=== PATIENT | female | born 1940 | race Caucasian/White ===

== ENCOUNTER → 2018-03-06 10:26 | Outpatient (CLI) | payer MEDICARE, OTHER, SELFPAY ==
[2018-03-06 13:31] LABS: ALB/GLOB Ratio 1.2 RATIO (0.9-2.4); AST(SGOT) 28 U/L (15-37); Alanine Aminotransfer ALT/SGPT 29 U/L (13-56); Albumin, Serum 3.7 g/dL (3.2-5.0); Alkaline Phosphatase 111 U/L (45-117); Anion Gap 8 (5-15); BUN 11 mg/dL (7-18); BUN/Creat Ratio 18.1 RATIO (10-20); Calcium,Total 8.5 mg/dL (8.5-10.1); Chloride 98 mmol/L (98-107); Creatinine, Serum 0.61 mg/dL (0.55-1.02); EST Glomerular Filtration Rate 101 mL/min (>60); Est Glom Filt Rate - Afr Amer 122 mL/min (>60); Globulin 3.2 g/dL (2.2-4.2); Glucose 83 mg/dL (74-106); Potassium 3.5 mmol/L (3.5-5.1); Protein, Total 6.9 g/dL (6.4-8.2); Sodium Level 133 mmol/L (136-145); T4 Free Direct 1.36 ng/dL (0.76-1.46); Thyroid Stim Hormone (TSH) 1.67 uIU/mL (0.358-3.74)
[2018-03-06 17:01] LABS: Vitamin D,25 Hydroxy 72.5 ng/mL (29.95-100.01)
== END ==
PROVIDERS: Family Provider Family Medicine; PCP Family Medicine; Visit Provider Family Medicine
DX: E03.9 Hypothyroidism, unspecified (principal); K90.0 Celiac disease; M81.0 Age-related osteoporosis without current pathological fracture
CPT/HCPCS: 36415; 80053; 82306; 84439; 84443

== ENCOUNTER → 2018-03-17 09:03 | Outpatient (CLI) | payer MEDICARE, OTHER, SELFPAY ==
--- NOTE | 2018-03-17 09:05 | BD_ITS ---
STUDY: DUAL ENERGY X-RAY ABSORPTIOMETRY / DXA REASON FOR EXAM: Female, 78 years old. The patient is postmenopausal. Loss of height of 3 images. TECHNIQUE: Bone Mineral Density (BMD) measurements of lumbar spine and bilateral hips were obtained. COMPARISON: Comparison is made with prior study dated March 16, 2015. FINDINGS: Lumbar Spine (L1-L4): g/cm2 (0.847) / T-score (-2.8) / Z-score (-0.9) Findings are suggestive of osteoporosis with a high fracture risk. Increased thoracic kyphosis. Left Femur Total: g/cm2 (0.745) / T-score (-2.1) / Z-score (-0.1) Left Femoral Neck: g/cm2 (0.699) / T-score (-2.4) / Z-score (-0.3) Right Femur Total: g/cm2 (0.752) / T-score (-2.0) / Z-score (0.0) Right Femoral Neck: g/cm2 (0.741) / T-score (-2.1) / Z-score (0.0) The T-Scores on the most recent prior examination were: Lumbar Spine (L1-L4): There has been improvement of bone density since the previous examination. Left Femur Total: which represents a worsening of 4.1%. Right Femur Total: which represents a worsening of 2.2%. BD/Dexa Bone Density Study IMPRESSION: The patient is considered osteoporotic as outlined below according to World Edu Organization (WHO) criteria with a high fracture risk. There has been worsening of bone density since the previous examination. Reference Information: The T-score is the number of standard deviations above or below the standard which is normal for young adults at their peak bone mineral density. The World Health Organization (WHO) interprets the T-scores as follows: Above -1 Normal bone density Between -1 and -2.5 Osteopenia Equal to / or below -2.5 Osteoporosis As a practical clinical guideline, osteopenia may be graded as follows: Mild -1 through -1.5 Moderate -1.6 through -2.0 Severe -2.1 through -2.4 The Z-score is the number of standard deviations above or below age-matched controls. A Z-score of less than -1.5 would be considered abnormal. References: 1. NIH Osteoporosis and Related Bone Diseases http://www.osteo.org 2. International Society for Clinical Densitometry http://www.iscd.org 3. National Osteoporosis Foundation http://www.nof.org Electronically Signed: Wolfgang Brooks MD at 15:46 EDT Tel [phone], Service support ,
== END ==
PROVIDERS: Family Provider Family Medicine; PCP Family Medicine; Visit Provider Family Medicine
DX: M81.0 Age-related osteoporosis without current pathological fracture (principal)
CPT/HCPCS: 77080

== ENCOUNTER → 2018-04-28 07:55 | Outpatient (CLI) | payer MEDICARE, OTHER, SELFPAY ==
[2018-04-28 10:02] LABS: AST(SGOT) 29 U/L (15-37); Alanine Aminotransfer ALT/SGPT 35 U/L (13-56); Albumin, Serum 3.8 g/dL (3.2-5.0); Alkaline Phosphatase 114 U/L (45-117); Bilirubin, Direct 0.11 mg/dL (0.00-0.30); Cholesterol 152 mg/dL (200); Globulin 3.5 g/dL (2.2-4.2); High Density Lipoprotein 60 mg/dL; Protein, Total 7.3 g/dL (6.4-8.2); Triglycerides 88 mg/dL; Very Low Density Lipoprotein 18 mg/dL (5-40)
== END ==
PROVIDERS: Family Provider Family Medicine; PCP Family Medicine; Visit Provider Internal Medicine Cardiovascular Disease
DX: E78.5 Hyperlipidemia, unspecified (principal); Z79.899 Other long term (current) drug therapy
CPT/HCPCS: 36415; 80061; 80076

== ENCOUNTER → 2018-05-11 10:20 | Outpatient (CLI) | payer MEDICARE, OTHER, SELFPAY ==
--- NOTE | 2018-05-11 10:20 | DT_ITS ---
This patient was seen during an EMR downtime May 04, 2018 - May 11, 2018. This patient may have a combination of paper and electronic documentation or all paper documentation. All documentation is viewable within the e-chart portion of [employer] for each patient visit.
--- NOTE | 2018-05-11 10:25 | RAD_ITS ---
STUDY: X-RAY CHEST REASON FOR EXAM: Female, 78 years old. Cough. TECHNIQUE: Frontal and lateral views of the chest. COMPARISON: June 06, 2015 FINDINGS: The lungs are mildly hyperexpanded and unchanged. There is no demonstrated pleural abnormality. Normal size heart. Normal mediastinum and nighat. Normal visualized pulmonary arteries. Normal visualized aortic arch and descending thoracic aorta. There is increased kyphosis of the thoracic spine with osteopenia unchanged. Normal visualized ribs, clavicles, and shoulders. Aspect of the noted are stable postsurgical changes in the abdomen. RAD/Chest PA and Lateral IMPRESSION: Stable appearance of the chest with no new or acute pathology. Specifically, no focal consolidations are present. Electronically Signed: Jax Smith MD at 12:42 EDT , Service support ,
[2018-05-11 12:53] LABS: Anion Gap 8 (5-15); BUN 7 mg/dL (7-18); BUN/Creat Ratio 10.9 RATIO (10-20); Calcium,Total 9.5 mg/dL (8.5-10.1); Chloride 98 mmol/L (98-107); Creatinine, Serum 0.64 mg/dL (0.55-1.02); EST Glomerular Filtration Rate 95 mL/min (>60); Est Glom Filt Rate - Afr Amer 115 mL/min (>60); Glucose 111 mg/dL (74-106); Potassium 3.8 mmol/L (3.5-5.1); Sodium Level 136 mmol/L (136-145); Thyroid Stim Hormone (TSH) 1.74 uIU/mL (0.358-3.74)
== END ==
PROVIDERS: Family Provider Family Medicine; PCP Family Medicine; Visit Provider Family Medicine
DX: R05 Cough (principal); E03.9 Hypothyroidism, unspecified; I10 Essential (primary) hypertension
CPT/HCPCS: 36415; 71046; 80048; 84443

== ENCOUNTER → 2018-05-29 11:04 | Outpatient (CLI) | payer MEDICARE, OTHER, SELFPAY ==
--- NOTE | 2018-05-29 11:08 | RAD_ITS ---
STUDY: X-RAY - LUMBAR SPINE REASON FOR EXAM: Female, 78 years old. Back pain for days constipation TECHNIQUE: 4 view(s) of the lumbar spine were obtained. COMPARISON: Y 12 2012 lumbar spine x-ray FINDINGS: Normal lumbar lordosis. There is mild levoscoliosis of the lumbar spine. There is a normal alignment of the vertebrae. There is multilevel endplate spondylosis of the lumbar vertebrae. There is multi-level degenerative disc disease with multi-level disc space narrowing. There is greater neural foraminal narrowing suggested at L4-L5. There is a stool-filled appearance of the colon in a gassy appearance of the small bowel. This postoperative change in the right upper quadrant status post cholecystectomy. RAD/L/S Spine Min 4 Views IMPRESSION: Degenerative change thoracolumbar spine. Probable greater neural foraminal narrowing in the lower lumbar spine. Electronically Signed: Ashley Moreland MD at 15:13 EDT Tel , Service support ,
== END ==
PROVIDERS: Family Provider Family Medicine; PCP Family Medicine; Visit Provider Family Medicine
DX: M54.9 Dorsalgia, unspecified (principal)
CPT/HCPCS: 72110

== ENCOUNTER → 2018-07-10 10:31 | Outpatient (CLI) | payer MEDICARE, OTHER, SELFPAY ==
[2018-07-10 12:49] LABS: Anion Gap 10 (5-15); BUN 8 mg/dL (7-18); BUN/Creat Ratio 12.7 RATIO (10-20); Calcium,Total 9.5 mg/dL (8.5-10.1); Chloride 103 mmol/L (98-107); Creatinine, Serum 0.63 mg/dL (0.55-1.02); EST Glomerular Filtration Rate 97 mL/min (>60); Est Glom Filt Rate - Afr Amer 117 mL/min (>60); Glucose 99 mg/dL (74-106); Potassium 3.8 mmol/L (3.5-5.1); Sodium Level 141 mmol/L (136-145); Thyroid Stim Hormone (TSH) 1.59 uIU/mL (0.358-3.74)
== END ==
PROVIDERS: Family Provider Family Medicine; PCP Family Medicine; Visit Provider Family Medicine
DX: E03.9 Hypothyroidism, unspecified (principal)
CPT/HCPCS: 36415; 80048; 84443

== ENCOUNTER → 2018-11-11 10:33 | Outpatient (CLI) | payer MEDICARE, OTHER, SELFPAY ==
[2018-11-11 12:29] LABS: Anion Gap 8 (5-15); BUN 9 mg/dL (7-18); BUN/Creat Ratio 14.5 RATIO (10-20); Calcium,Total 9.3 mg/dL (8.5-10.1); Chloride 99 mmol/L (98-107); Creatinine, Serum 0.62 mg/dL (0.55-1.02); EST Glomerular Filtration Rate 98 mL/min (>60); Est Glom Filt Rate - Afr Amer 119 mL/min (>60); Free T3 2.8 pg/mL (2.18-3.98); Glucose 102 mg/dL (74-106); Sodium Level 137 mmol/L (136-145); T4 Total, Thyroxin 12.6 ug/dL (4.8-13.9); Thyroid Stim Hormone (TSH) 2.09 uIU/mL (0.358-3.74)
--- OUTSIDE RECORDS SUMMARY | 2018-12-28 12:39 | XMS RPT_ITS ---
:1940 Author Organization OHIP Support Name Relationship Address Phone RABIAKORY HARMONNIE Unavailable . + [place] [address] R Unavailable Unavailable Unavailable LEXI, EITAN Unavailable . + [place] [address] RABIA, FAB Unavailable . + [place] [address] R Unavailable Unavailable Unavailable LEXI EITAN Unavailable . + [place] [address] RABIA, FAB Unavailable . + [place] [address] R Unavailable Unavailable Unavailable LEXI EITAN Unavailable . + [place] [address] RABIA, FAB Unavailable . + [place] [address] R Unavailable Unavailable Unavailable LEXI EITAN Unavailable . + [place] [address] RABIA, FAB Unavailable . + [place] [address] R Unavailable Unavailable Unavailable LEXI EITAN Unavailable . + [place] [address] RABIA, FAB Unavailable . + [place] [address] R Unavailable Unavailable Unavailable LEXI EITAN Unavailable . + [place] [address] RABIA, FAB Unavailable . + [place] [address] R Unavailable Unavailable Unavailable LEXI EITAN Unavailable . + [place] [address] RABIA, FAB Unavailable Unavailable + [place] [address] R Unavailable Unavailable Unavailable SWIRES, EITAN Unavailable Unavailable + [place] [address] RABIA, FAB Unavailable . + [place] [address] R Unavailable Unavailable Unavailable SWIRES, EITAN Unavailable . + [place] [address] RABIA, FAB Unavailable . + [place] [address] R Unavailable Unavailable Unavailable SWIRES, EITAN Unavailable . + [place] [address] RABIA, FAB Unavailable . + [place] [address] R Unavailable Unavailable Unavailable SWIRES, EITAN Unavailable . + [place] [address] RABIA, FAB Unavailable . + [place] [address] R Unavailable Unavailable Unavailable SWIRES, EITAN Unavailable . + [place] [address] R Unavailable Unavailable Unavailable ROOT, SEKOU Unavailable [address] [phone] [address] [place] [address] R Unavailable Unavailable Unavailable ROOT, SEKOU Unavailable [address] [phone] [address] [place] [address] R Unavailable Unavailable Unavailable ROOT, SEKOU Unavailable [address] [phone] [address] [place] [address] R Unavailable Unavailable Unavailable ROOT, SEKOU Unavailable [address] + [place] [address] R Unavailable Unavailable Unavailable ROOT, SEKOU Unavailable [address] + [place] [address] Care Team Providers Name Role Phone Amos King Attending Unavailable Amos King Primary Care Unavailable Mily Julio Attending Unavailable Jona Padron Attending Unavailable Parminder Hair Referring Unavailable Parminder Hair Attending Unavailable Laxmi, Parminder Primary Care Unavailable Parminder Hair Attending Unavailable Laxmi, Parminder Referring Unavailable Laxmi, Parminder Primary Care Unavailable Chacorta Higginbotham Attending Unavailable Parminder Hair Referring Unavailable Jona Padron Attending Unavailable Parminder Hair Referring Unavailable Laxmi, Parminder Primary Care Unavailable Chacorta Higginbotham Attending Unavailable Laxmi, Parminder Referring Unavailable Laxmi, Parminder Primary Care Unavailable Jona Padron Attending Unavailable Laxmi, Parminder Referring Unavailable Laxmi, Parminder Primary Care Unavailable Jona Padron Attending Unavailable Laxmi, Parminder Referring Unavailable Laxmi, Parminder Primary Care Unavailable Jona Padron Attending Unavailable Jona Pardon Referring Unavailable Laxmi, Parminder Primary Care Unavailable King, Amos Attending Unavailable King, Amos Referring Unavailable King, Amos Primary Care Unavailable Jona Padron Attending Unavailable Laxmi, Parminder Referring Unavailable King, Amos Primary Care Unavailable King, Amos Attending Unavailable King, Amos Referring Unavailable King, Amos Primary Care Unavailable King, Amos Attending Unavailable King, Amos Referring Unavailable King, Amos Primary Care Unavailable Leslie Chapman Attending Unavailable King, Amos Referring Unavailable King, Amos Primary Care Unavailable Funmilayo [place] Attending Unavailable Laxmi, Parminder Referring Unavailable King, Amos Primary Care Unavailable PROBLEMS PROBLEMS DATE TYPE CONDITION / CODE ATTENDING STATUS SOURCE 07/31/2018 Unknown I25.10 - [place], Active [place] Atherosclerotic heart Funmilayo [facility] disease [facility] coronary artery Repository without angina pectoris / I25.10(ICD-10) 07/31/2018 Unknown I10 - Essential Sherman, Active [place] (primary) Funmilayo [facility] hypertension / Hospital I10(ICD-10) Repository 07/31/2018 Unknown R00.0 - Tachycardia, Lane Active [place] unspecified / [facility] R00.0(ICD-10) Hospital Repository 05/29/2018 Unknown M54.9 - Dorsalgia, KingAmos thomason Active [place] unspecified / Community M54.9(ICD-10) Hospital Repository 05/28/2018 Unknown R05 - Cough / KingAmos Active [place] R05(ICD-10) Community Hospital Repository 03/26/2018 Unknown E78.5 - Jona Padron Active [place] Hyperlipidemia, Community unspecified / Hospital E78.5(ICD-10) Repository 03/19/2018 Unknown 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 / Community J32.0(ICD-10) Hospital Repository 03/17/2018 Unknown M81.0 - Age-related Parminder Hair Active [place] osteoporosis without Community current pathological Hospital fracture / Repository M81.0(ICD-10) 03/17/2018 Unknown E03.9 - Laxmi Parminder Active [place] Hypothyroidism, Community unspecified / Hospital E03.9(ICD-10) Repository PROCEDURES PROCEDURES No Procedure Records FoundRESULTS RESULTS BASIC METABOLIC Collected: 11/11/2018 Status: F Source: [place] PROFILE (BMP) 10:39 AM [facility] [place] CODE TESTS RESULT OUT OF RANGE REFERENCE UNITS LAB L501.0100 74-106 mg/dL Normal GLU 102 Result Comment: Fasting Glucose result from 100 to 125 mg/dL suggests IMPAIRED HOMEOSTASIS per A.D.A. criteria. Please note revised GLUCOSE reference range effective 2018. LAB L501.1000 7-18 mg/dL Normal BUN 9 LAB L501.1100 0.55-1.02 mg/dL Normal CREAT,SERUM 0.62 Result Comment: The validity of the calculated GFR AND GFRAA in patients over 70 years has not been determined. Clinical correlation is essential. LAB L501.1110 >60 mL/min Normal EST GFR 98 Result Comment: Non- GFR Calc LAB L501.1115 >60 mL/min Normal EST GFR - AA 119 Result Comment: GFR Calc LAB L501.1300 10-20 RATIO Normal BUN/CRE 14.5 LAB L501.2200 8.5-10.1 mg/dL CA Normal 9.3 LAB L501.5300 136-145 mmol/L NA Normal 137 LAB L501.5600 3.5-5.1 mmol/L K Normal 4.0 LAB L501.5900 98-107 mmol/L CL Normal 99 LAB L501.6100 21.0-32.0 mmol/L Normal CO2 30.0 LAB L501.6200 5-15 Normal GAP 8 Performed By: #### L500.2500, L501.27009, L501.9310, L501.9520 #### [facility] [address] [place], [address] FREE T3 Collected: 11/11/2018 Status: F Source: [place] 10:39 AM [facility] [place] TYPE CODE TESTS RESULT OUT OF RANGE REFERENCE UNITS LAB L501.39129 2.18-3.98 pg/mL Normal FREE T3 2.8 Performed By: #### L500.2500, L501.45784, L501.9310, L501.9520 #### [facility] [address] [place], [address] T4 TOTAL, THYROXIN Collected: 11/11/2018 Status: F Source: [place] 10:39 AM [facility] [place] TYPE CODE TESTS RESULT OUT OF RANGE REFERENCE UNITS LAB L501.9310 4.8-13.9 ug/dL T4 Normal THYROXIN 12.6 Performed By: #### L500.2500, L501.58644, L501.9310, L501.9520 #### [facility] [address] [place], [address] THYROID STIM HORMONE Collected: 11/11/2018 Status: F Source: [place] (TSH) 10:39 AM [facility] [place] TYPE CODE TESTS RESULT OUT OF RANGE REFERENCE UNITS LAB L501.9520 0.358-3.74 uIU/mL Normal TSH 2.09 Performed By: #### L500.2500, L501.06424, L501.9310, L501.9520 #### [facility] [address] [place], [address] CARDIOLOGY VISIT Observed: 08/05/2018 Status: F Source: [place] REPORT 2:20 PM [facility] [place] [facility] [facility] [address] [place] [address] OFFICE VISIT Date of Service: 07/31/18 MR#: [id number] Acct: [id number] Name: JOLIE LEMOS Rep #: [id number] : 1940 Provider: Funmilayo [place] Age/Sex: 78/F Location: [facility] [place] Status: Signed HPI HPI Details: JOLIE LEMOS, is a 78 F who presents to the office today for a cardiovascular follow-up. Patient reestablished with us last year for concerns over her atypical chest discomfort. We did obtain a stress test which was negative for ischemia. She does have a history of hypertension, hypothyroidism and GERD. Patient does note occasionally her heart rate is elevated to 100-115. She is not symptomatic with this. She only notes this by checking her blood pressure. In the past she has averaged heart rates in the high 80s-90s. Overall she is doing well. She feels her exercise tolerance is stable for her age. She does not have any chest discomfort or heaviness. She does not have any lightheadedness or dizziness. She does not have any worsening shortness of breath. She does not have any lower extremity edema or claudication symptoms. Intake Vital Signs07/31/18 Height 5 ft 07/31/18 Weight: 116 lb 07/31/18 Body Mass Index (BMI) 22.6 07/31/18 Blood Pressure 140/60 Intake Visit Reasons: 4 M Belling Machine Operator Required: No Allergies omeprazole Allergy (Intermediate, Verified 07/31/18 10:56) Itching Penicillins Allergy (Verified 07/31/18 10:56) Unknown lisinopril Adverse Reaction (Intermediate, Verified 07/31/18 10:56) Cough Medications calcium carbonate 500 mg (1,250 mg)-vitamin D3 200 unit tablet 2 tab PO QDAY tab 01/01/18 [History Confirmed 07/31/18] cholecalciferol (vitamin D3) 5,000 unit tablet 5,000 unit PO QDAY 01/01/18 [History Confirmed 07/31/18] levothyroxine 50 mcg tablet 50 mcg PO QDAY 90 Days #90 tab 01/01/18 [History Confirmed 07/31/18] omega-3 fatty acids 1,000 mg capsule 1,000 mg PO QDAY 03/19/18 [History Confirmed 07/31/18] aspirin 81 mg tablet,delayed release 81 mg PO QDAY 03/20/18 [History Confirmed 07/31/18] vitamin B complex tablet 1 tab PO QDAY 03/20/18 [History Confirmed 07/31/18] vitamins A,C,B-mevy-llfbua 14,320 unit-226 mg-200 unit capsule 1 cap PO .q day cap 03/20/18 [History Confirmed 07/31/18] acetaminophen 325 mg tablet 325 mg PO Q6H PRN 07/29/18 [History Confirmed 07/31/18] ketotifen 0.025 % (0.035 %) eye drops 1 drp OPHTHALMIC BID 07/29/18 [History Confirmed 07/31/18] polyethylene glycol 3350 17 gram/dose oral powder PO 07/29/18 [History Confirmed 07/31/18] amlodipine 2.5 mg tablet 2.5 mg PO QDAY #90 tab 07/31/18 [Rx Confirmed 07/31/18] losartan 25 mg tablet 25 mg PO DAILY 07/31/18 [History Confirmed 07/31/18] PFSH Medical History GERD (gastroesophageal reflux disease) (Chronic) Atherosclerotic heart disease of [place] coronary artery without angina pectoris (Chronic) Arthritis (Acute) Thyroid disease (Acute) HLD (hyperlipidemia) (Chronic) HTN (hypertension) (Chronic) Chest pain, unspecified (Chronic) Surgical History History of cataract surgery (Chronic) History of left heart catheterization (Chronic) History of Alexei fundoplication (Resolved) Tubal ligation status (Resolved) Family History Mother CAD (coronary artery disease) Father CAD (coronary artery disease) Brother Heart disease Myocardial infarction Other Cancer Dementia Social History Smoking Status: Never smoker alcohol intake: never substance use type: does not use caffeine: Yes what type of physical activity do you participate in: other details: Mobio video frequency: daily seatbelt use: always do you feel safe at home: Yes additional social history: ROS Const Const: Positive for other (Multiple other health issues such as back pain, bladder prolapse); negative for fatigue, weakness, body ache, fever(s), headache(s), chills, frequent falls, night sweats, daytime sleepiness, difficulty sleeping, excessive sweating, weight gain, weight loss, increased appetite, poor appetite or anorexia ENT ENT: Negative for headache(s) or balance problems Cardio Chest Pain: No Palpitations: No (HR today is 100 and regular) Edema: Bilateral (from varicose veins, wears support stockings) Muscle aches with walking: None Resp Respiratory: Negative for SOB with activity, SOB at rest, SOB orthopnea\SOB lying down, Cough, Coughing up blood/hemoptysis, chest congestion, pain on inspiration, snoring, stridor, wheezing, crackles, paroxysmal nocturnal dyspnea or other Musc Musc: Positive for joint pain (back pain); negative for muscle aches/ myalgia, muscle weakness or balance problems Neuro Neuro: Negative for weakness, headache(s) or frequent falls Endo Endo: Negative for fatigue or excessive sweating Cardiology Exam Const Appearance: cooperative, healthy appearing and no acute distress Nutritional Appearance: well nourished Orientation: alert, oriented x3 and oriented to person Head Head: normal to inspection, atraumatic and normocephalic Nose: external nose normal Face and Sinus: face symmetric Mouth: oral mucosae normal Eyes General: appearance normal, both eyes and all related structures Eyelids: eyelids normal Conjunctivae: conjunctivae normal Pupils: PERRL and normal by confrontation EOM: EOM intact bilaterally Neck Neck: normal visual inspection and full ROM Carotids: normal carotid upstroke Chest Chest inspection: normal inspection of the chest Auscultation: Bilateral: Clear to Auscultation Cardio Palpation: normal PMI Rate: regular rate Rhythm: regular rhythm Heart sounds: S1 normal and S2 normal GI GI: normal to inspection, no hepatosplenomegaly and bowel sounds present Neuro General: alert, oriented x3, awake, CN's II-XI intact bilaterally and moves all extremities Skin Skin: no rashes or lesions noted Extremities Pulses: Normal: Right Femoral Pulse, Left Femoral Pulse, Right Dorsalis Pedis Pulse, Left Dorsalis Pedis Pulse, Right Posterior Tibial Pulse, Left Posterior Tibial Pulse, Right Radial Pulse, Left Radial Pulse Lower Extremity Edema: None: Bilateral Psych Psychological: normal affect Supplemental Info Stress echocardiogram in 2017 demonstrates an ejection fraction of 65%. Normal adequate treadmill echocardiogram. Negative for ischemia by EKG and echocardiographic criteria. No anginal symptoms noted. No arrhythmias noted. Average exercise capacity for age. Echocardiogram in 2017 demonstrates an ejection fraction of 65%. Stage I diastolic dysfunction. Trivial mitral tricuspid insufficiency. RVSP 27 mmHg. Assessment AND Plan 1. Atherosclerosis of [place] coronary artery of [place] heart without angina pectoris I25.10 Mild per cath 08/15/1998 @ [facility] per Dr. Miranda: 10-25% ostial first diagonal stenosis; 10-25% ostial RCA artery stenosis Plan Stable, from a cardiac standpoint patient does not have any symptoms of angina. We recommend that they continue with current aggressive medical management and risk factor modification. Orders Orders: 2. Essential hypertension I10 Plan Blood pressure is adequately controlled. Will not make any adjustments at this time. Orders Orders: 3. Pure hypercholesterolemia E78.00; E78.0 Plan Recent lipid profile demonstrates total cholesterol of 152, HDL 60, LDL 74. Will not make any further adjustments. 4. Tachycardia R00.0 Plan EKG today demonstrates normal sinus rhythm. Have discussed obtaining a Holter monitor to evaluate her tachycardia however reviewing records is noted that her average heart rate is between upper 80s and low 90s. For now we will continue to monitor. She is not symptomatic with this. Orders Orders: Plan Detail Other Medications Refilled: Additional Comments Thank you for allowing us to participate in the patients plan of care, if you have any questions please do not hesitate to call. This note was generated using a voice recognition system and there may be incorrect words, spelling or punctuation that were not noted when reviewing the office note prior to saving. Follow Up 6 Months (DJN) Coding Level of Care Code Off vis,est,level 3 Diagnoses Atherosclerosis of [place] coronary artery of [place] heart without angina pectoris I25.10 [place] vs. transplanted heart: [place] heart Essential hypertension I10 Hypertension type: essential hypertension Pure hypercholesterolemia E78.00; E78.0 Hyperlipidemia type: pure hypercholesterolemia Tachycardia R00.0 Coding Level of Care Code Off vis,est,level 3 Diagnoses Atherosclerosis of [place] coronary artery of [place] heart without angina pectoris I25.10 [place] vs. transplanted heart: [place] heart Essential hypertension I10 Hypertension type: essential hypertension Pure hypercholesterolemia E78.00; E78.0 Hyperlipidemia type: pure hypercholesterolemia Tachycardia R00.0 08/05/18 1420 <Electronically signed by Funmilayo MUSA> Date Funmilayo MUSA Cosigner Signature: Date (if applicable) CC: Amos King MD 12 LEAD EKG PERFORMED Observed: 07/31/2018 Status: F Source: [place] BY [place]OSH 11:25 AM [facility] [address] [place] [address] 12 Lead EKG performed by JOSH 07/31/18 1122 MR#: [id number] Acct: [id number] Name: JOLIE LEMOS Rep #: [id number] : 1940 78 From: Funmilayo MUSA Attending Dr: Funmilayo [place] Status: DEP AMB Ordering Dr: Funmilayo [place] Date: 07/31/18 Location: [facility] Sex: F C [place] [facility]12 Lead EKG performed by [facility] ECG Report Interpretation Sinus Rhythm -possible old anterior infarct. ABNORMAL Electronically signed on 11/13/2018 at 15:21 by Jona Padron Software Version [id number] 11/13/18 1526 Date Funmilayo MUSA CC: Amos King MD Date Dictated: 07/31/18 112 Date Transcribed: 07/31/18 112 Field Staff: DONAVAN Signed SIDEROGRAPHIST OFFICE VISIT Observed: 07/29/2018 Status: F Source: [place] REPORT 3:03 PM [facility] [address] [place] [address] OFFICE VISIT Date of Service: 07/29/18 MR#: [id number] Acct: [id number] Name: JOLIE LEMOS Rep #: [id number] : 1940 Provider: KAREN Chapman Age/Sex: 78/F Location: [facility] [place] Status: Signed Intake Vital Signs07/29/18 Height 5 ft 07/29/18 Weight: 116 lb 8 oz 07/29/18 Body Mass Index (BMI) 22.7 07/29/18 Blood Pressure 140/84 Intake Visit Reasons: POSSIBLE PROLAPSE Belling Machine Operator Required: No Is patient in pain?: No Allergies omeprazole Allergy (Intermediate, Verified 07/29/18 14:06) Itching Penicillins Allergy (Verified 07/29/18 14:06) Unknown lisinopril Adverse Reaction (Intermediate, Verified 07/29/18 14:06) Cough Medications calcium carbonate 500 mg (1,250 mg)-vitamin D3 200 unit tablet 2 tab PO QDAY tab 01/01/18 [History Confirmed 07/29/18] cholecalciferol (vitamin D3) 5,000 unit tablet 5,000 unit PO QDAY 01/01/18 [History Confirmed 07/29/18] levothyroxine 50 mcg tablet 50 mcg PO QDAY 90 Days #90 tab 01/01/18 [History Confirmed 07/29/18] omega-3 fatty acids 1,000 mg capsule 1,000 mg PO QDAY 03/19/18 [History Confirmed 07/29/18] aspirin 81 mg tablet,delayed release 81 mg PO QDAY 03/20/18 [History Confirmed 07/29/18] vitamin B complex tablet 1 tab PO QDAY 03/20/18 [History Confirmed 07/29/18] vitamins A,C,U-xarc-zbatss 14,320 unit-226 mg-200 unit capsule 1 cap PO .q day cap 03/20/18 [History Confirmed 07/29/18] amlodipine 2.5 mg tablet 2.5 mg PO QDAY #30 tab 04/24/18 [Rx Confirmed 07/29/18] losartan 25 mg tablet 25 mg PO QDAY 04/24/18 [History Confirmed 07/29/18] acetaminophen 325 mg tablet 325 mg PO Q6H PRN 07/29/18 [History Confirmed 07/29/18] ketotifen 0.025 % (0.035 %) eye drops 1 drp OPHTHALMIC BID 07/29/18 [History Confirmed 07/29/18] loratadine 10 mg tablet 10 mg PO DAILY 07/29/18 [History Confirmed 07/29/18] multivitamin tablet 1 tab PO DAILY 07/29/18 [History Confirmed 07/29/18] polyethylene glycol 3350 17 gram/dose oral powder PO 07/29/18 [History Confirmed 07/29/18] Is last menstrual period known: No Post menopausal: Yes Patient : No : No PFSH Medical History GERD (gastroesophageal reflux disease) (Chronic) Atherosclerotic heart disease of [place] coronary artery without angina pectoris (Chronic) Arthritis (Acute) Thyroid disease (Acute) HLD (hyperlipidemia) (Chronic) HTN (hypertension) (Chronic) Chest pain, unspecified (Chronic) Surgical History History of cataract surgery (Chronic) History of left heart catheterization (Chronic) History of Alexei fundoplication (Resolved) Tubal ligation status (Resolved) Family History Mother CAD (coronary artery disease) Father CAD (coronary artery disease) Brother Heart disease Myocardial infarction Other Cancer Dementia Social History Smoking Status: Never smoker alcohol intake: never substance use type: does not use caffeine: Yes what type of physical activity do you participate in: other details: Mobio video frequency: daily seatbelt use: always do you feel safe at home: Yes additional social history: HPI POSSIBLE PROLAPSE: Details: JOLIE LEMOS is a 78 year old who presents for evaluation of possible vaginal prolapse. Noted bulge when wiping yesterday. Denies vaginal bleeding. Had some discomfort and urinary urgency yesterday but has resolved. Pregancy History 3 Elective abortions Hx Para 3 Spontaneous abortions Past Pregnancies Del. DateName GA/Weeks Outcome Route Bth WeighInfant GeLabor LgtAnesthesiDel LocatProvider FOB t n h a n Exam External Female Exam: normal external appearance, normal appearance of the urethra Urethra: normal appearance of the urethra Speculum Exam - Vagina: atrophic vaginal mucosa Speculum Exam - Cervix: normal appearance of the cervix Bimanual Exam- Vagina AND Uterus: normal bimanual exam Bimanual Exam- Adnexa, other: normal adnexae, cystocele Pelvic Support: cystocele mild Results BMSUA Office Urine Color Yellow Last Edit by Funmilayo Kasper on 07/29/18 15:02 Office Urine Clarity Clear Last Edit by Funmilayo Kasper on 07/29/18 15:02 Assessment AND Plan Problems 1. Midline cystocele N81.11 2. Urinary urgency R39.15 Plan Discussed use of pessary if cystocele becomes problematic which it has not yet. She just wanted to know what she could feel in vaginal UA dip X 10 negative RTO prn if symptoms occur Orders Orders: Coding Level of Care Code Off vis,new,level 3 Diagnoses Midline cystocele N81.11 Cystocele location: midline Urinary urgency R39.15 07/29/18 1503 <Electronically signed by Leslie BALDWIN> Date Leslie Chapman SURVEILLANCE MANAGER-C Cosigner Signature: Date (if applicable) CC: BASIC METABOLIC Collected: 07/10/2018 Status: F Source: [place] PROFILE (BMP) 10:42 AM [facility] [place] TYPE CODE TESTS RESULT OUT OF RANGE REFERENCE UNITS LAB L501.0100 74-106 mg/dL Normal GLU 99 Result Comment: Please note revised GLUCOSE reference range effective 2018. LAB L501.1000 7-18 mg/dL Normal BUN 8 LAB L501.1100 0.55-1.02 mg/dL Normal CREAT,SERUM 0.63 Result Comment: The validity of the calculated GFR AND GFRAA in patients over 70 years has not been determined. Clinical correlation is essential. LAB L501.1110 >60 mL/min Normal EST GFR 97 Result Comment: Non- GFR Calc LAB L501.1115 >60 mL/min Normal EST GFR - AA 117 Result Comment: GFR Calc LAB L501.1300 10-20 RATIO Normal BUN/CRE 12.7 LAB L501.2200 8.5-10.1 mg/dL CA Normal 9.5 LAB L501.5300 136-145 mmol/L NA Normal 141 LAB L501.5600 3.5-5.1 mmol/L K Normal 3.8 LAB L501.5900 98-107 mmol/L CL Normal 103 LAB L501.6100 21.0-32.0 mmol/L Normal CO2 28.0 LAB L501.6200 5-15 Normal GAP 10 Performed By: #### L500.2500, L501.9520 #### [facility] [address] [place], [address] THYROID STIM HORMONE Collected: 07/10/2018 Status: F Source: [place] (TSH) 10:42 AM [facility] [place] TYPE CODE TESTS RESULT OUT OF RANGE REFERENCE UNITS LAB L501.9520 0.358-3.74 uIU/mL Normal TSH 1.59 Performed By: #### L500.2500, L501.9520 #### [facility] [address] [place], [address] L/S SPINE MIN 4 Observed: 05/29/2018 Status: F Source: [place] [facility] [place] [facility] Imaging Services [address] [place] [address] L/S Spine Min 4 Views MR#: [id number] Acct: [id number] Name: JOLIE LEMOS Rep #: [id number] : 1940 F 78 From: Ashley Moreland MD PCP: Amos King MD Status: REG CLI Study: L/S Spine Min 4 Views Date of Exam: 05/29/18 Exam# [id number] Ordering Dr: Amos King MD STUDY: X-RAY - LUMBAR SPINE REASON FOR EXAM: Female, 78 years old. Back pain for days constipation TECHNIQUE: 4 view(s) of the lumbar spine were obtained. COMPARISON: Y 12 2012 lumbar spine x-ray FINDINGS: Normal lumbar lordosis. There is mild levoscoliosis of the lumbar spine. There is a normal alignment of the vertebrae. There is multilevel endplate spondylosis of the lumbar vertebrae. There is multi-level degenerative disc disease with multi-level disc space narrowing. There is greater neural foraminal narrowing suggested at L4-L5. There is a stool-filled appearance of the colon in a gassy appearance of the small bowel. This postoperative change in the right upper quadrant status post cholecystectomy. RAD/L/S Spine Min 4 Views IMPRESSION: Degenerative change thoracolumbar spine. Probable greater neural foraminal narrowing in the lower lumbar spine. Electronically Signed: Ashley Moreland MD at 15:13 EDT Tel , Service support , CC: Amos King MD Field Staff: Signed OFFICE VISIT REPORT Observed: 05/23/2018 Status: F Source: [place] 2:24 PM [facility] [place] [address] OFFICE VISIT Date of Service: 04/10/18 MR#: [id number] Acct: [id number] Patient: JOLIE LEMOS Rep #: [id number] : 1940 Provider: Jona Padron MD Age/Sex: 78/F Location: [facility] [place] Status: Signed Intake Intake Visit Reasons: 2 wk bp ck per DJN Chief Complaint: recurring cough Allergies omeprazole Allergy (Intermediate, Verified 04/06/18 10:55) Itching Penicillins Allergy (Verified 04/06/18 10:55) Unknown lisinopril Adverse Reaction (Intermediate, Verified 04/06/18 10:55) Cough Medications calcium carbonate 500 mg (1,250 mg)-vitamin D3 200 unit tablet 2 tab PO QDAY tab 01/01/18 [History Confirmed 04/06/18] cholecalciferol (vitamin D3) 5,000 unit tablet 5,000 unit PO QDAY 01/01/18 [History Confirmed 04/06/18] levothyroxine 50 mcg tablet 50 mcg PO QDAY 90 Days #90 tab 01/01/18 [History Confirmed 04/06/18] omega-3 fatty acids 1,000 mg capsule 1,000 mg PO QDAY 03/19/18 [History Confirmed 04/06/18] aspirin 81 mg tablet,delayed release 81 mg PO QDAY 03/20/18 [History Confirmed 04/06/18] vitamin B complex tablet 1 tab PO QDAY 03/20/18 [History Confirmed 04/06/18] vitamins A,C,A-wxwx-daeatk 14,320 unit-226 mg-200 unit capsule 1 cap PO .q day cap 03/20/18 [History Confirmed 04/06/18] azithromycin 250 mg tablet 250 mg PO QDAY #12 tab 04/06/18 [Rx Confirmed 04/06/18] amlodipine 2.5 mg tablet 2.5 mg PO QDAY #30 tab 04/24/18 [Rx] loratadine 10 mg tablet 10 mg PO QDAY 30 Days #30 tab 04/24/18 [History Confirmed 04/24/18] losartan 25 mg tablet 25 mg PO QDAY 04/24/18 [History Confirmed 04/24/18] Nursing Note Patient here for a blood pressure check, she increased her Losartin to 25mg twice daily. She states she feels better since the dose was increased. Today her blood pressure was 152/82, pulse 98. She bought a new blood pressure cuff which she used while she was here, the readings were similar. Per Dr. Padron, patient is to increase Losartin to 50mg twice daily and have a BMP and blood pressure check in two weeks. Patient notified of above and verbalized understanding. She stated she will need a new prescription for Losartin, she uses [facility] away. appt made. She will need order for BMP to be done in 2 weeks. 05/23/18 1424 <Electronically signed by Jona Padron MD> Date Jona Padron MD Cosigner Signature: Date (if applicable) CC: Ashly Sibley DOWNTIME REPORT Observed: 05/21/2018 Status: F Source: [place] 2:15 PM [facility] [place] [facility] Medical Records Department [address] [place] [address] Downtime Report MR#: [id number] Acct: [id number] Name: JOLIE LEMOS Rep #: [id number] : 1940 78 From: Soto Navarro PCP: Amos King MD Status: REG CLI This patient was seen during an EMR downtime May 04, 2018 - May 11, 2018. This patient may have a combination of paper and electronic documentation or all paper documentation. All documentation is viewable within the e-chart portion of [employer] for each patient visit. BASIC METABOLIC Collected: 05/11/2018 Status: F Source: [place] PROFILE (BMP) 10:27 AM [facility] [place] [facility] [place] TYPE CODE TESTS RESULT OUT OF RANGE REFERENCE UNITS LAB L501.0100 74-106 mg/dL High GLU 111 Result Comment: Fasting Glucose result from 100 to 125 mg/dL suggests IMPAIRED HOMEOSTASIS per A.D.A. criteria. Please note revised GLUCOSE reference range effective 2018. LAB L501.1000 7-18 mg/dL Normal BUN 7 LAB L501.1100 0.55-1.02 mg/dL Normal CREAT,SERUM 0.64 Result Comment: The validity of the calculated GFR AND GFRAA in patients over 70 years has not been determined. Clinical correlation is essential. LAB L501.1110 >60 mL/min Normal EST GFR 95 Result Comment: Non- GFR Calc LAB L501.1115 >60 mL/min Normal EST GFR - AA 115 Result Comment: GFR Calc LAB L501.1300 10-20 RATIO Normal BUN/CRE 10.9 LAB L501.2200 8.5-10.1 mg/dL CA Normal 9.5 LAB L501.5300 136-145 mmol/L NA Normal 136 LAB L501.5600 3.5-5.1 mmol/L K Normal 3.8 LAB L501.5900 98-107 mmol/L CL Normal 98 LAB L501.6100 21.0-32.0 mmol/L Normal CO2 30.0 LAB L501.6200 5-15 Normal GAP 8 Performed By: #### L500.2500, L501.9520 #### [facility] [address] [place], [address] THYROID STIM HORMONE Collected: 05/11/2018 Status: F Source: [place] (TSH) 10:27 AM [facility] [place] [facility] [place] TYPE CODE TESTS RESULT OUT OF RANGE REFERENCE UNITS LAB L501.9520 0.358-3.74 uIU/mL Normal TSH 1.74 Performed By: #### L500.2500, L501.9520 #### [facility] [address] [facility] [place], [address] CHEST PA AND LATERAL Observed: 05/11/2018 Status: F Source: [place] 10:25 AM [facility] [place] [facility] Imaging Services [address] [place] [address] Chest PA and Lateral MR#: [id number] Acct: [id number] Name: JOLIE LEMOS Rep #: [id number] : 1940 F 78 From: Jax Smith MD PCP: Amos King MD Status: REG CLI Study: Chest PA and Lateral Date of Exam: 05/11/18 Exam# [id number] Ordering Dr: Amos King MD STUDY: X-RAY CHEST REASON FOR EXAM: Female, 78 years old. Cough. TECHNIQUE: Frontal and lateral views of the chest. COMPARISON: June 06, 2015 FINDINGS: The lungs are mildly hyperexpanded and unchanged. There is no demonstrated pleural abnormality. Normal size heart. Normal mediastinum and nighat. Normal visualized pulmonary arteries. Normal visualized aortic arch and descending thoracic aorta. There is increased kyphosis of the thoracic spine with osteopenia unchanged. Normal visualized ribs, clavicles, and shoulders. Aspect of the noted are stable postsurgical changes in the abdomen. RAD/Chest PA and Lateral IMPRESSION: Stable appearance of the chest with no new or acute pathology. Specifically, no focal consolidations are present. Electronically Signed: Jax Smith MD at 12:42 EDT , Service support , CC: Amos King MD Field Staff: Signed LIVER PROFILE Collected: 04/28/2018 Status: F Source: [place] 8:02 AM [facility] [place] [facility] [place] Order Comment: Order Date: 06/27/17 Order Info: [id number] - *Hepatic Function Panel Order Info: [id number] - *Lipid Profile CC PCP Comments: 12 hours fasting, may have water. TYPE CODE TESTS RESULT OUT OF RANGE REFERENCE UNITS LAB L501.1500 6.4-8.2 g/dL Normal T PROT 7.3 LAB L501.1800 3.2-5.0 g/dL Normal ALB 3.8 LAB L501.1950 2.2-4.2 g/dL Normal GLOB 3.5 LAB L501.4100 15-37 U/L Normal AST 29 LAB L501.4305 45-117 U/L Normal ALK P 114 LAB L501.4405 13-56 U/L Normal ALT 35 LAB L501.4600 0.20-1.00 mg/dL Normal T BILI 0.50 LAB L501.4700 0.00-0.30 mg/dL Normal D BILI 0.11 Performed By: #### L500.3400 #### [facility] [address] [place], [address] LIPID PROFILE Collected: 04/28/2018 Status: F Source: [place] 8:02 AM [facility] [place] [facility] [place] [facility] Order Comment: Order Date: 06/27/17 Order Info: [id number] - *Hepatic Function Panel Order Info: [id number] - *Lipid Profile CC PCP Comments: 12 hours fasting, may have water. TYPE CODE TESTS RESULT OUT OF RANGE REFERENCE UNITS LAB L501.4900 200 mg/dL Normal CHOL 152 Result Comment: <200 mg/dL Desirable 200-240 mg/dL Borderline >240 mg/dL High Risk LAB L501.5000 mg/dL Normal TRIG 88 Result Comment: The drugs N-Acetylcysteine and Metamizole may falsely depress this assay. Serum Triglycerides Reference Interval Normal <150 mg/dL Borderline high 150 - 199 mg/dL High 200 - 499 mg/dL Very High > or = 500 mg/dL LAB L501.6400 mg/dL Normal HDL 60 Result Comment: The drugs N-Acetylcysteine and Metamizole may falsely depress this assay. Reference Range HDL <40 mg/dL Low HDL Cholesterol HDL >or= 60 mg/dL High HDL Cholesterol LAB L501.6500 0-130 mg/dL Normal LDL 74 LAB L501.6600 5-40 mg/dL Normal VLDL 18 Performed By: #### L500.4100 #### [facility] [address] [place], [address] OFFICE VISIT REPORT Observed: 04/24/2018 Status: F Source: [place] 4:35 PM [facility] [place][1] Services [address] [place] [address] OFFICE VISIT Date of Service: 04/24/18 MR#: [id number] Acct: [id number] Patient: JOLIE LEMOS Rep #: [id number] : 1940 Provider: Jona Padron MD Age/Sex: 78/F [place] [facility] Status: Signed Intake Intake Visit Reasons: 2 wk bp ck per DJN Chief Complaint: recurring cough Allergies omeprazole Allergy (Intermediate, Verified 04/06/18 10:55) Itching Penicillins Allergy (Verified 04/06/18 10:55) Unknown lisinopril Adverse Reaction (Intermediate, Verified 04/06/18 10:55) Cough Medications calcium carbonate 500 mg (1,250 mg)-vitamin D3 200 unit tablet 2 tab PO QDAY tab 01/01/18 [History Confirmed 04/06/18] cholecalciferol (vitamin D3) 5,000 unit tablet 5,000 unit PO QDAY 01/01/18 [History Confirmed 04/06/18] levothyroxine 50 mcg tablet 50 mcg PO QDAY 90 Days #90 tab 01/01/18 [History Confirmed 04/06/18] omega-3 fatty acids 1,000 mg capsule 1,000 mg PO QDAY 03/19/18 [History Confirmed 04/06/18] aspirin 81 mg tablet,delayed release 81 mg PO QDAY 03/20/18 [History Confirmed 04/06/18] vitamin B complex tablet 1 tab PO QDAY 03/20/18 [History Confirmed 04/06/18] vitamins A,C,D-hvkq-wmjuoz 14,320 unit-226 mg-200 unit capsule 1 cap PO .q day cap 03/20/18 [History Confirmed 04/06/18] azithromycin 250 mg tablet 250 mg PO QDAY #12 tab 04/06/18 [Rx Confirmed 04/06/18] amlodipine 2.5 mg tablet 2.5 mg PO QDAY 04/24/18 [History Confirmed 04/24/18] loratadine 10 mg tablet 10 mg PO QDAY 30 Days #30 tab 04/24/18 [History Confirmed 04/24/18] losartan 25 mg tablet 25 mg PO QDAY 04/24/18 [History Confirmed 04/24/18] Assessment AND Plan Medications Discontinued: Nursing Note During OV 03/26/2018 pt BP was 160/72, Dr. Padron instructed pt to increase Losartan 25 mg po twice daily. Pt is here today (04/24/2018) for a bp check d/t change in medication. Pt stated she has had a cough, runny nose, sneezin, and has been tired since increasing Losartan. Pt cuff: 147/90, HR 93 Our cuff: 160/80, HR 92, RR 20 Jessee Patiño NP reviewed vitals and pt is to 1.) decrease Losartan to 25 mg po daily, 2.) start Norvasc 2.5 mg po daily, 3.) BP check in two weeks. 04/24/18 1635 <Electronically signed by Jessee Patiño SURVEILLANCE MANAGER-C> Date Jessee Patiño SURVEILLANCE MANAGER-C Cosigner Signature: Date (if applicable) CC: Mily Julio URGENT CARE VISIT Observed: 04/06/2018 Status: F Source: [place] REPORT 12:04 PM [facility] [place] [facility] [place] [facility] [address] [place] [address] OFFICE VISIT Date of Service: 04/06/18 MR#: [id number] Acct: [id number] Name: JOLIE LEMOS Rep #: [id number] : 1940 Provider: Chacorta MUSA Age/Sex: 78/F Location: [facility] Status: Signed Intake Vital Signs04/06/18 Blood Pressure 146/74 04/06/18 Blood Pressure Location Lt brachial 04/06/18 Blood Pressure Position Sitting 04/06/18 Height 5 ft Intake Visit Reasons: BRONCHITIS Chief Complaint: recurring cough Allergies omeprazole Allergy (Intermediate, Verified 04/06/18 10:55) Itching Penicillins Allergy (Verified 04/06/18 10:55) Unknown lisinopril Adverse Reaction (Intermediate, Verified 04/06/18 10:55) Cough Medications calcium carbonate 500 mg (1,250 mg)-vitamin D3 200 unit tablet 2 tab PO QDAY tab 01/01/18 [History Confirmed 04/06/18] cholecalciferol (vitamin D3) 5,000 unit tablet 5,000 unit PO QDAY 01/01/18 [History Confirmed 04/06/18] levothyroxine 50 mcg tablet 50 mcg PO QDAY 90 Days #90 tab 01/01/18 [History Confirmed 04/06/18] omega-3 fatty acids 1,000 mg capsule 1,000 mg PO QDAY 03/19/18 [History Confirmed 04/06/18] aspirin 81 mg tablet,delayed release 81 mg PO QDAY 03/20/18 [History Confirmed 04/06/18] vitamin B complex tablet 1 tab PO QDAY 03/20/18 [History Confirmed 04/06/18] vitamins A,C,H-izki-gbcmwt 14,320 unit-226 mg-200 unit capsule 1 cap PO .q day cap 03/20/18 [History Confirmed 04/06/18] losartan 50 mg tablet 25 mg PO BID #90 tab 03/26/18 [Rx Confirmed 04/06/18] azithromycin 250 mg tablet 250 mg PO QDAY #12 tab 04/06/18 [Rx Confirmed 04/06/18] loratadine 10 mg tablet PO 30 Days #30 04/06/18 [History Confirmed 04/06/18] [facility] Medical History GERD (gastroesophageal reflux disease) (Chronic) Atherosclerotic heart disease of [place] coronary artery without angina pectoris (Chronic) Arthritis (Acute) Thyroid disease (Acute) HLD (hyperlipidemia) (Chronic) HTN (hypertension) (Chronic) Chest pain, unspecified (Chronic) Surgical History History of cataract surgery (Chronic) History of left heart catheterization (Chronic) History of Alexei fundoplication (Resolved) Family History Mother CAD (coronary artery disease) Father CAD (coronary artery disease) Brother Heart disease Myocardial infarction Other Cancer Dementia Social History Smoking Status: Never smoker alcohol intake: never HPI HPI Chief Complaint: recurring cough Details: JOLIE LEMOS, is a 78 F who presents to the office today for f/u after having been previously treated for bronchitis with azithromycin Z-Hunter on March 19, 2018. Patient notes his symptoms have improved remarkably but not completely and shortly after finishing the antibiotic, the symptoms returned. She notes continued cough productive exudative green purulent discharge with occasional chills though no complaints of dyspnea/shortness of breath. Non-smoker. No other complaints at this time. ROS Const Constitutional: Positive for chills; no excessive sweating, abnormal sleep pattern, fever(s), night sweats or body ache Eyes Eyes: No change in vision ENT ENT: Positive for post nasal drip; no abnormal hearing, ear pain, ear discharge, ear pressure, hearing loss, sinus pressure, nasal congestion or sore throat Resp Respiratory: Positive for cough Cough: Yes productive; no chest congestion or shortness of breath Cardio Cardiology: No excessive sweating, chest pain at rest, chest pain with exertion, shortness of breath, dyspnea on exertion, irregular heart rhythm, generalized swelling or leg pain with exertion Gastro GI: No abdominal pain, change in stool character or change in bowel habits Skin Skin: No sores or rash Neuro Neurology: No abnormal hearing, abnormal speech or abnormal movements Psych Psychiatric: No abnormal sleep pattern Endo Endocrine: No excessive sweating Exam Const General: cooperative, healthy appearing, no acute distress, comfortable Nutritional Appearance: average body habitus Orientation: alert, awake, oriented x3 HENMT Head: normal to inspection Ears: hearing grossly normal bilaterally, external ears normal, TM's normal bilaterally, EAC's normal Nose: external nose normal, nares normal, septum normal, no nasal discharge Face and sinus: normal facial exam, sinuses nontender, face symmetric Mouth: oral mucosae normal, lip normal, oropharynx normal, tongue normal Teeth and gingiva: dentition normal, gingiva normal Throat: uvula midline, tonsils normal, posterior oropharynx normal, no postnasal drainage Eyes General: appearance normal, both eyes and all related structures Neck Neck: normal visual inspection, full ROM, no lymphadenopathy, no meningeal signs, supple Neck mass: No Thyroid: thyroid normal Lymphatic: no lymphadenopathy noted Chest Chest palpation AND inspection: normal inspection of the chest Resp Effort AND Inspection: normal respiratory effort, able to speak in complete sentences, symmetric chest movement, cough Quality of cough: productive (Exudative green sputum produced in office during today's exam.) Auscultation: Bilateral: Clear to Auscultation Cardio Palpation: normal PMI Rate: regular rate Rhythm: regular rhythm Heart Sounds: S1 normal, S2 normal, no gallops, no murmurs, no rubs Pulses: radial pulses present Skin General: no rashes or lesions noted Neuro General: alert, awake, oriented x3, gait normal Cognition: normal cognition Speech: speech normal Gait: normal gait Motor: muscle tone normal throughout Sensory Exam: no sensory deficits noted Psych Appearance: grossly normal Mental Status: mental status grossly normal Mood: congruent mood Affect: normal affect Speech and Movement: speech and movement normal Attitude: cooperative Thought Process: normal Thought Content: normal Judgment: judgment good Assessment AND Plan Plan Azithromycin as prescribed today. Clear fluids, rest, Tylenol as needed for symptomatic relief. Follow-up with 3-5 days should symptoms not improve, sooner should symptoms worsen or any other concerns develop. Patient states acknowledging understanding all the above. This note was generated with [employer] software. It may contain incorrect words, spelling, and punctuation that were not noted in checking the note before signing. Medications New: Coding Level of Care Code Off vis,est,level 3 04/06/18 1204 <Electronically signed by Chacorta MUSA> Date Chacorta MUSA Cosigner Signature: Date (if applicable) CC: CARDIOLOGY VISIT Observed: 03/26/2018 Status: F Source: [place] REPORT 1:22 PM [facility] [place] [facility] [address] [place] [address] OFFICE VISIT Date of Service: 03/26/18 MR#: [id number] Acct: [id number] Name: JOLIE LEMOS Rep #: [id number] : 1940 Provider: Jona Padron MD Age/Sex: 78/F Location: [facility] [place] Status: Signed HPI HPI Chief Complaint: Routine follow-up Details: referring physician: Dr. Hangrazyna Lemos is a very pleasant 78-year-old nondiabetic female with a history of hypertension, hypothyroidism, GERD with what appears to be a Alexei fundoplication surgery in 1994. She is a former patient of Dr. Miranda and underwent a diagnostic coronary catheterization at [facility] in 1997. At that time she was found to have a hyperdynamic LV with LVH with an EF of 70%, 10-25% on steel diagonal #1, and 10-25% ostial RCA stenosis. Patient was medically managed and returned with unstable angina in 2002 and apparently underwent repeat stress testing at that time. This demonstrated excellent exercise capacity at 10 minutes, no symptoms, and negative nuclear imaging for ischemia. According the patient no additional catheterization was performed. The patient has not seen her GI doctor in many years. She is to see Dr. Wright. Patient was in normal health up until around May 2017 when she developed atypical nonexertional sharp substernal chest pain that woke her up from sleeping state, lasted less than 1 minute and was nonradiating. She denied any associated nausea, vomiting, shortness of breath. The pain abated and then returned several days ago while she was shopping with her daughter and she went to bend over and pick something up. She described this as a burning sensation similar to her GERD, which lasted less than 1 minute as well. She does actually walk on a treadmill when she cannot walk outside and has no exertional symptoms. Her most recent EKG from 06/18/17 showed normal sinus rhythm, normal axis, normal intervals, no acute changes, no previous AR noted. Patient underwent a stress echocardiogram on 07/16/17 which showed an EF of 65%, normal stress echo, no anginal symptoms. She now returns for routine follow-up. Since her last visit, the patient has been doing fairly well. Recently however she had a sinus infection and just finished a Z-Hunter. She is feeling much better. She takes her blood pressure at home with a wrist cuff, and reports that her blood pressure is in the 140s. She is taking and tolerating her medicines well. She denies any chest pain, angina, shortness of breath or dyspnea on exertion. In our office today her blood pressure is 160/72, pulse is 80 and regular. Her physical exam demonstrates clean carotids bilaterally, no bruits, regular rate and rhythm, normal S1/S2, no murmurs noted. No edema noted. Lipids are pending. EKG dated 06/18/17 shows normal sinus rhythm, normal axis, normal intervals, no evidence of previous myocardial infarction. Her lipids as of 03/06/18 show an HDL of 70 and an LDL of 33. Intake Vital Signs03/26/18 Height 5 ft 03/26/18 Weight: 122 lb 03/26/18 Body Mass Index (BMI) 23.8 03/26/18 Blood Pressure 160/72 03/26/18 Respiratory Rate 18 03/26/18 Pulse Rate 92 Intake Visit Reasons: 6 M FU Allergies omeprazole Allergy (Intermediate, Verified 03/20/18 10:05) Itching Penicillins Allergy (Verified 03/19/18 11:04) Unknown lisinopril Adverse Reaction (Intermediate, Verified 03/20/18 10:05) Cough Medications calcium carbonate 500 mg (1,250 mg)-vitamin D3 200 unit tablet 2 tab PO QDAY tab 01/01/18 [History Confirmed 03/20/18] cholecalciferol (vitamin D3) 5,000 unit tablet 5,000 unit PO QDAY 01/01/18 [History Confirmed 03/20/18] levothyroxine 50 mcg tablet 50 mcg PO QDAY 90 Days #90 tab 01/01/18 [History Confirmed 03/20/18] omega-3 fatty acids 1,000 mg capsule 1,000 mg PO QDAY 03/19/18 [History Confirmed 03/20/18] aspirin 81 mg tablet,delayed release 81 mg PO QDAY 03/20/18 [History Confirmed 03/20/18] vitamin B complex tablet 1 tab PO QDAY 03/20/18 [History Confirmed 03/20/18] vitamins A,C,W-rbby-lrljub 14,320 unit-226 mg-200 unit capsule 1 cap PO .q day cap 03/20/18 [History Confirmed 03/20/18] losartan 50 mg tablet 25 mg PO BID #90 tab 03/26/18 [Rx Confirmed 03/26/18] Ejection fraction %: 65 to [facility] History GERD (gastroesophageal reflux disease) (Chronic) Atherosclerotic heart disease of [place] coronary artery without angina pectoris (Chronic) Arthritis (Acute) Thyroid disease (Acute) HLD (hyperlipidemia) (Chronic) HTN (hypertension) (Chronic) Chest pain, unspecified (Chronic) Surgical History History of cataract surgery (Chronic) History of left heart catheterization (Chronic) History of Alexei fundoplication (Resolved) Family History Mother CAD (coronary artery disease) Father CAD (coronary artery disease) Brother Heart disease Myocardial infarction Other Cancer Dementia Social History Smoking Status: Never smoker alcohol intake: never ROS Const Const: Negative for weakness, difficulty sleeping, frequent falls, fatigue, excessive sweating or headache(s) Eyes Eyes: Negative for loss of peripheral vision, transient loss of vision, blurry vision or double vision ENT ENT: Negative for headache(s), dizziness, Nosebleed/epistaxis or balance problems Cardio Chest Pain: No Edema: None Muscle aches with walking: None Resp Respiratory: Negative for SOB with activity, SOB at rest, SOB orthopnea\SOB lying down or paroxysmal nocturnal dyspnea GI GI: Negative nausea or heartburn : Negative for hematuria Musc Musc: Negative for muscle aches/ myalgia, muscle weakness, joint pain or balance problems Skin Skin: Negative non-healing lesions, unusual bruising or rash Neuro Neuro: Negative for lightheadedness, orthostatic symptoms, weakness, frequent falls, blurry vision, double vision, headache(s) or dizziness Zoltan Hematologic/Lymphatic: Negative for easy bruising Endo Endo: Negative for fatigue, excessive sweating or increased thirst/drinking Psych Psych: Negative for anxiety or depression Allergy Allergy/Immunology: Negative for hives, Negative for rash Cardiology Exam Const Appearance: cooperative, healthy appearing and no acute distress Nutritional Appearance: well nourished Orientation: alert, oriented x3 and oriented to person Head Head: normal to inspection, atraumatic and normocephalic Nose: external nose normal Face and Sinus: face symmetric Mouth: oral mucosae normal Eyes General: appearance normal, both eyes and all related structures Eyelids: eyelids normal Conjunctivae: conjunctivae normal Pupils: PERRL and normal by confrontation EOM: EOM intact bilaterally Neck Neck: normal visual inspection and full ROM Carotids: normal carotid upstroke Chest Chest inspection: normal inspection of the chest Auscultation: Bilateral: Clear to Auscultation Cardio Palpation: normal PMI Rate: regular rate Rhythm: regular rhythm Heart sounds: S1 normal and S2 normal GI GI: normal to inspection, no hepatosplenomegaly and bowel sounds present Neuro General: alert, oriented x3, awake, CN's II-XI intact bilaterally and moves all extremities Skin Skin: no rashes or lesions noted Extremities Pulses: Normal: Right Femoral Pulse, Left Femoral Pulse, Right Dorsalis Pedis Pulse, Left Dorsalis Pedis Pulse, Right Posterior Tibial Pulse, Left Posterior Tibial Pulse, Right Radial Pulse, Left Radial Pulse Lower Extremity Edema: None: Bilateral Psych Psychological: normal affect Assessment AND Plan 1. Atherosclerotic heart disease of [place] coronary artery without angina pectoris I25.10 Mild per cath 08/15/1998 @ [facility] per Dr. Miranda: 10-25% ostial first diagonal stenosis; 10-25% ostial RCA artery stenosis Plan 1. Coronary artery disease: No exertional anginal symptoms at this time. No indication for any additional testing. She has had no change in her exercise capacity since her last visit. Recommend she continue baby aspirin, and losartan. We will increase her losartan to 25 mg p.o. twice daily for better control of her blood pressure. 2. HTN (hypertension) I10 Plan 2. Hypertension: I advised the patient to obtain a blood pressure cuff that goes around her upper arm, and the increase her losartan to 25 mg p.o. twice daily, with a blood pressure check in 2 weeks time. 3. HLD (hyperlipidemia) E78.5 Plan 3. Hyperlipidemia: Her LDL and HDL cholesterol are at goal, but her triglycerides of increase and switching to a gluten diet. Nonetheless her lipids are adequate given her age and risk factors. Continue omega-3 fatty acids. 4. Return office in 4 months. This note was generated using a voice recognition system and there may be incorrect words, spelling or punctuation that were not noted when reviewing the office note prior to saving. Plan Detail Other Medications New: Discontinued: azithromycin 2 tablets today, then 1 tablet daily on ouxm386 mg PO QDAY Ashly Kilner 2 through 5 Discontinued Reason: Pt no longer taking Follow Up +4M (Padron or LOSS CONTROL ENGINEER) +2 weeks (BP check) Coding Level of Care Code Off vis,est,level 3 Diagnoses Atherosclerotic heart disease of [place] coronary artery without angina pectoris I25.10 HTN (hypertension) I10 HLD (hyperlipidemia) E78.5 Coding Level of Care Code Off vis,est,level 3 Diagnoses Atherosclerotic heart disease of [place] coronary artery without angina pectoris I25.10 HTN (hypertension) I10 HLD (hyperlipidemia) E78.5 03/26/18 1322 <Electronically signed by Jona Padron MD> Date Jona Padron MD Cosigner Signature: Date (if applicable) CC: Parminder Hair URGENT CARE VISIT Observed: 03/19/2018 Status: F Source: [facility] [address] [place] [address] OFFICE VISIT Date of Service: 03/19/18 MR#: [id number] Acct: [id number] Name: JOLIE LEMOS Rep #: [id number] : 1940 Provider: Chacorta MUSA Age/Sex: 78/F Location: [facility] Status: Signed Intake Vital Signs03/19/18 Height 5 ft Intake Visit Reasons: Sore Throat and Drainage Chief Complaint: Sinus pressure, left earache Allergies lisinopril Allergy (Verified 03/19/18 10:54) Unknown omeprazole Allergy (Verified 03/19/18 10:54) Unknown Penicillins Allergy (Verified 03/19/18 11:04) Unknown Medications calcium carbonate 500 mg (1,250 mg)-vitamin D3 200 unit tablet 2 tab PO QDAY tab 01/01/18 [History Confirmed 03/19/18] cholecalciferol (vitamin D3) 5,000 unit tablet 5,000 unit PO QDAY 01/01/18 [History Confirmed 03/19/18] levothyroxine 50 mcg tablet 50 mcg PO QDAY 90 Days #90 tab 01/01/18 [History Confirmed 03/19/18] losartan 50 mg tablet 25 mg PO QDAY 90 Days #45 tab 01/01/18 [History Confirmed 04/19/18] azithromycin 250 mg tablet 250 mg PO QDAY #6 tab 03/19/18 [Rx Confirmed 03/19/18] omega-3 fatty acids 1,000 mg capsule 1,000 mg PO QDAY 03/19/18 [History Confirmed 03/19/18] PFSH Medical History Family history of ischemic heart disease and other diseases of the circulatory system (Chronic) HLD (hyperlipidemia) (Chronic) HTN (hypertension) (Chronic) Chest pain, unspecified (Chronic) Arthritis (Acute) Thyroid disease (Acute) Surgical History History of Alexei fundoplication (Resolved) Family History Mother CAD (coronary artery disease) Father CAD (coronary artery disease) Brother Heart disease Myocardial infarction Other Cancer Dementia Social History Smoking Status: Never smoker alcohol intake: never HPI HPI Chief Complaint: Sinus pressure, left earache Details: JOLIE LEMOS, is a 78 F who presents to the office today for initial evaluation 3 day history of progressively worsening left facial pressure and left earache. Patient notes no complaints fever, chills, sweats, rash, chest pain/shortness of breath, or cough. She has a moderate amount of postnasal drip which she is spitting up describing is yellow-green. She is a non-smoker, stating she has not been exposed to anyone else with similar signs or symptoms she says. No sbhz-pzo-[id number] products have been tried to assist with her symptoms today. No other associated symptoms, no other alleviating or aggravating factors. ROS Const Constitutional: No excessive sweating, abnormal sleep pattern, chills, fever(s), night sweats or body ache Eyes Eyes: No change in vision ENT ENT: Positive for ear pain, post nasal drip and sinus pressure; no abnormal hearing, ear discharge, ear pressure, hearing loss or sore throat Resp Respiratory: Positive for cough (Due to postnasal drip patient states); no chest congestion or shortness of breath Cardio Cardiology: No excessive sweating, chest pain at rest, chest pain with exertion, shortness of breath, dyspnea on exertion, irregular heart rhythm, generalized swelling or leg pain with exertion Gastro GI: No abdominal pain, change in stool character or change in bowel habits Skin Skin: No rash Neuro Neurology: No abnormal hearing, abnormal speech or abnormal movements Psych Psychiatric: No abnormal sleep pattern Endo Endocrine: No excessive sweating Exam Const General: cooperative, healthy appearing, no acute distress, comfortable, well groomed Nutritional Appearance: average body habitus Orientation: alert, awake, oriented x3 [facility] Head: normal to inspection Ears: hearing grossly normal bilaterally, external ears normal, TM's normal bilaterally, EAC's normal Nose: external nose normal, nares normal, septum normal, no nasal discharge Face and sinus: normal facial exam, face symmetric, sinus tenderness maxillary (Left) Mouth: oral mucosae normal, lip normal, oropharynx normal, tongue normal Teeth and gingiva: dentition normal, gingiva normal Throat: uvula midline, tonsils normal, posterior oropharynx normal, postnasal drainage (Scant purulent) Eyes General: appearance normal, both eyes and all related structures Neck Neck: normal visual inspection, full ROM, no meningeal signs, supple, lymphadenopathy (Bilateral anterior cervical node swelling and tender to palpation) Neck mass: No Thyroid: thyroid normal Lymphatic: no lymphadenopathy noted Chest Chest palpation AND inspection: normal inspection of the chest Resp Effort AND Inspection: normal respiratory effort, able to speak in complete sentences, symmetric chest movement, no cough Auscultation: Bilateral: Clear to Auscultation Cardio Palpation: normal PMI Rate: regular rate Rhythm: regular rhythm Heart Sounds: S1 normal, S2 normal, no gallops, no murmurs, no rubs Pulses: radial pulses present GI Inspection: normal to inspection Palpation: soft Skin General: no rashes or lesions noted Neuro General: alert, awake, oriented x3, gait normal Cognition: normal cognition Speech: speech normal Gait: normal gait Motor: muscle tone normal throughout Sensory Exam: no sensory deficits noted Psych Appearance: grossly normal Mental Status: mental status grossly normal Mood: congruent mood Affect: normal affect Speech and Movement: speech and movement normal Attitude: cooperative Thought Process: normal Thought Content: normal Judgment: judgment good Assessment AND Plan Problems 1. Maxillary sinusitis J32.0 Plan Azithromycin as prescribed today. Clear fluids, rest, Tylenol, warm facial compresses as needed as instructed today. Follow-up with PCP in 3-5 days should symptoms not improved, sooner should symptoms worsen or any other concerns develop. Patient states acknowledging understanding all of the above. This note was generated with [employer] dictation software. It may contain incorrect words, spelling, and punctuation that were not noted in checking the note before signing. Medications New: Coding Level of Care Code Off vis,est,level 3 Diagnoses Maxillary sinusitis J32.0 03/19/18 1112 <Electronically signed by Chacorta MUSA> Date Chacorta MUSA Cosigner Signature: Date (if applicable) CC: DEXA BONE DENSITY Observed: 03/17/2018 Status: F Source: [place] STUDY 9:05 AM [facility] Imaging Services [address] [place] [address] Dexa Bone Density Study MR#: [id number] Acct: [id number] Name: JOLIE LEMOS Rep #: [id number] : 1940 F 78 From: Wolfgang Brooks MD PCP: Parminder Hair Status: REG CLI Study: Dexa Bone Density Study Date of Exam: 03/17/18 Exam# [id number] Ordering Dr: Parminder Hair MD STUDY: DUAL ENERGY X-RAY ABSORPTIOMETRY / DXA REASON FOR EXAM: Female, 78 years old. The patient is postmenopausal. Loss of height of 3 images. TECHNIQUE: Bone Mineral Density (BMD) measurements of lumbar spine and bilateral hips were obtained. COMPARISON: Comparison is made with prior study dated March 16, 2015. FINDINGS: Lumbar Spine (L1-L4): g/cm2 (0.847) / T-score (-2.8) / Z-score (-0.9) Findings are suggestive of osteoporosis with a high fracture risk. Increased thoracic kyphosis. Left Femur Total: g/cm2 (0.745) / T-score (-2.1) / Z- score (-0.1) Left Femoral Neck: g/cm2 (0.699) / T-score (-2.4) / Z- score (-0.3) Right Femur Total: g/cm2 (0.752) / T-score (-2.0) / Z- score (0.0) Right Femoral Neck: g/cm2 (0.741) / T-score (-2.1) / Z-score (0.0) The T-Scores on the most recent prior examination were: Lumbar Spine (L1-L4): There has been improvement of bone density since the previous examination. Left Femur Total: which represents a worsening of 4.1%. Right Femur Total: which represents a worsening of 2.2%. BD/Dexa Bone Density Study IMPRESSION: The patient is considered osteoporotic as outlined below according to World Edu Organization (WHO) criteria with a high fracture risk. There has been worsening of bone density since the previous examination. Reference Information: The T-score is the number of standard deviations above or below the standard which is normal for young adults at their peak bone mineral density. The World Health Organization (WHO) interprets the T-scores as follows: Above -1 Normal bone density Between -1 and -2.5 Osteopenia Equal to / or below -2.5 Osteoporosis As a practical clinical guideline, osteopenia may be graded as follows: Mild -1 through -1.5 Moderate -1.6 through -2.0 Severe -2.1 through -2.4 The Z-score is the number of standard deviations above or below age-matched controls. A Z-score of less than -1.5 would be considered abnormal. References: 1. NIH Osteoporosis and Related Bone Diseases http://www.osteo.org 2. International Society for Clinical Densitometry http://www.iscd.org 3. National Osteoporosis Foundation http://www.nof.org Electronically Signed: Wolfgang Brooks MD at 15:46 EDT Tel [phone], Service support , CC: Parminder Hair Field Staff: Signed COMPREHENSIVE METABOLIC Collected: 03/06/2018 Status: F Source: [facility] 10:30 AM [facility] TYPE CODE TESTS RESULT OUT OF RANGE REFERENCE UNITS LAB L501.0100 74-106 mg/dL Normal GLU 83 Result Comment: Please note revised GLUCOSE reference range effective 2018. LAB L501.1000 7-18 mg/dL Normal BUN 11 LAB L501.1100 0.55-1.02 mg/dL Normal CREAT,SERUM 0.61 Result Comment: The validity of the calculated GFR AND GFRAA in patients over 70 years has not been determined. Clinical correlation is essential. LAB L501.1110 >60 mL/min Normal EST GFR 101 Result Comment: Non- GFR Calc LAB L501.1115 >60 mL/min Normal EST GFR - AA 122 Result Comment: GFR Calc LAB L501.1300 10-20 RATIO Normal BUN/CRE 18.1 LAB L501.1500 6.4-8.2 g/dL T Normal PROT 6.9 LAB L501.1800 3.2-5.0 g/dL Normal ALB 3.7 LAB L501.1950 2.2-4.2 g/dL Normal GLOB 3.2 LAB L501.2000 0.9-2.4 RATIO Normal A/G 1.2 LAB L501.2200 8.5-10.1 mg/dL CA Normal 8.5 LAB L501.4100 15-37 U/L Normal AST 28 LAB L501.4305 45-117 U/L Normal ALK P 111 LAB L501.4405 13-56 U/L Normal ALT 29 Result Comment: Please note revised ALT reference range effective 2017. LAB L501.4600 0.20-1.00 mg/dL Normal T BILI 0.50 LAB L501.5300 136-145 mmol/L Low NA 133 LAB L501.5600 3.5-5.1 mmol/L Normal K 3.5 LAB L501.5900 98-107 mmol/L Normal CL 98 LAB L501.6100 21.0-32.0 mmol/L Normal CO2 27.0 LAB L501.6200 5-15 Normal GAP 8 Performed By: #### L500.4050, L501.9520, L506.0400 #### [facility] [address] [place], [address] THYROID STIM HORMONE Collected: 03/06/2018 Status: F Source: [place] ([facility]) 10:30 AM [facility] TYPE CODE TESTS RESULT OUT OF RANGE REFERENCE UNITS LAB L501.9520 0.358-3.74 uIU/mL Normal TSH 1.67 Performed By: #### L500.4050, L501.9520, L506.0400 #### [facility] [address] [place], [address] T4 FREE DIRECT Collected: 03/06/2018 Status: F Source: [place] 10:30 AM [facility] TYPE CODE TESTS RESULT OUT OF RANGE REFERENCE UNITS LAB L506.0400 0.76-1.46 ng/dL Normal T4 FREE 1.36 DIRECT Performed By: #### L500.4050, L501.9520, L506.0400 #### [facility] [place], [address] VITAMIN D,25 HYDROXY Collected: 03/06/2018 Status: F Source: [place] 10:30 AM [facility] TYPE CODE TESTS RESULT OUT OF RANGE REFERENCE UNITS LAB L506.1000 29.95-100.01 ng/mL Normal Vitamin D 72.5 25-OH Result Comment: Vitamin D 25(OH) Status Range Deficiency <20 ng/mL (50nmol/L) Insuffciency 20 - 30 ng/mL (50 - 75 nmol/L) Sufficiency 30 - 100 ng/mL (75 - 250 nmol/L) Toxicity >100 ng/mL (>250 nmol/L) Performed By: #### L506.1000 #### [facility] [address] [place], [address] ALLERGIES ALLERGIES DATE TYPE / CODE NAME / CODE REACTION SEVERITY SOURCE 07/31/2018 Drug Penicillins/ Unknown Unknown [facility] Allergy/4160 [id number](R Hospital 68884(SNOMED XNORM) Repository CT) 07/31/2018 Drug lisinopril/F cough MO [facility] Allergy/4160 [id number](RX Hospital 47071(SNOMED NORM) Repository CT) 07/31/2018 Drug omeprazole/F Itching MO [place] [facility] Allergy/4160 [id number]( Hospital 73731(SNOMED NORM) Repository CT) ENCOUNTERS ENCOUNTERS ADMIT/DISCHARGE ACCOUNT ADMITTING ENCOUNTER LOCATION SOURCE NUMBER CLASS 11/11/2018 [id number] Ambulatory [place] [facility] ing:MFPLAB Repository 07/31/2018/ [id number] Ambulatory BMS[facility]:B [place] 8 7 [facility] Repository 07/29/2018/ [id number] Ambulatory BMSBuilding:B [place] 8 6 [facility] Repository 07/10/2018 [id number] Ambulatory [place] 6 [facility] ing:MTLAB Repository 05/29/2018 [id number] Ambulatory [place] 3 [facility] ing:MTRAD Repository 05/11/2018 [id number] Ambulatory [place] 8 [facility] ing:MTRAD Repository 05/08/2018/ [id number] Ambulatory BMSBuilding:B [place] 8 3 [facility] Repository 04/28/2018 [id number] Ambulatory [place] 8 [facility] ing:LAB Repository 04/24/2018/ [id number] Ambulatory BMSBuilding:B [place] 8 6 [facility] Repository 04/10/2018/ [id number] Ambulatory BMSBuilding:B [place] 8 6 [facility] Repository 04/06/2018/ [id number] Ambulatory BMSBuilding:B [place] 8 1 [facility] Repository 03/26/2018/ [id number] Ambulatory B[facility]Building:B [place] 8 3 [facility] Repository 03/19/2018/ [id number] Ambulatory BMSBuilding:B [place] 8 0 [facility] Repository 03/17/2018 [id number] Ambulatory [place] 1 [facility] ing:OPBD Repository 03/06/2018 [id number] Ambulatory [place] 4 [facility] ing:BFHLAB Repository 01/01/2018 [id number] Ambulatory BMSBuilding:B [place] 9 [facility] Repository 01/01/2018 [id number] Ambulatory BMSBuilding:B [place] 7 [facility] Repository PAYERS PAYERS ENCOUNTER GUARANTOR PAYER SUBSCRIBER SOURCE 11/11/2018 JOLIE L Primary JOLIE L [place] [id number] Insurance:MEDICARE GRAHAMDOB: [facility] [id number] Number: Repository [address]Jkt: 330 [id number] [phone] () Date:2018-11-11 11/11/2018 Secondary JOLIE L [place] Insurance:AARPPolicy GRAHAMDOB: [facility] Number: [id number] Hospital [id number] Repository Date:3785-67-[address], [place] [address]UO: 11/11/2018 Tertiary NOT GIVENUNK [place] Insurance:SELF PAY [facility] Number: Effective Repository Date:2018-11-11 07/31/2018 JOLIE L Primary JOLIE L [place] [id number] Insurance:MEDICARE GRAHAMDOB: [facility] [id number] Number: Repository [id number]: 330 [id number] [phone] () Date:2018-03-26 07/31/2018 Secondary JOLIE L [place] Insurance:AARPPolicy GRAHAMDOB: [facility] Number: [id number] Hospital [id number] Repository Date:5794-57-[address], [place] [address]VE: 07/31/2018 Tertiary NOT GIVENUNK [place] Insurance:SELF PAY [facility] Number: Effective Repository Date:2018-07-31 07/29/2018 JOLIE L Primary JOLIE L [place] [id number] Insurance:MEDICARE GRAHAMDOB: [facility] [id number] [place] [address] Number: Repository [id number]: 330 [id number] [phone] (HP) Date:2018-07-29 07/29/2018 Secondary JOLIE L [place] Insurance:AARPPolicy HANAMDOB: Community Number: [id number] Hospital [id number] Repository Date:2050-92-62[address], [place] [address]OE: 07/29/2018 Tertiary NOT GIVENUNK [place] Insurance:SELF PAY [facility] Number: Effective Repository Date:2018-07-29 07/10/2018 JOLIE L Primary JOLIE L [place] [id number] Insurance:MEDICARE GRAHAMDOB: [facility] PART A [facility] [id number] Number: Repository [id number]: 330 [id number] [phone] () Date:2018-07-10 07/10/2018 Secondary JOLIE L [place] Insurance:AARPPolicy HANAMDOB: Community Number: [id number] Hospital [id number] Repository Date:3407-07-18[address], [place] [address]LI: 07/10/2018 Tertiary NOT GIVENUNK [place] Insurance:SELF PAY [facility] Number: Effective Repository Date:2018-07-10 05/29/2018 JOLIE L Primary JOLIE L [place] [id number] Insurance:MEDICARE GRAHAMDOB: [facility] PART [facility] [id number] Number: Repository [id number]: 330 [id number] [phone] (HP) Date:2018-05-29 05/29/2018 Secondary JOLIE L [place] Insurance:AARPPolicy GRAHAMDOB: Community Number: [id number] Hospital [id number] Repository Date:9566-60-80[address], [place] [address]QA: 05/29/2018 Tertiary NOT GIVENUNK [place] Insurance:SELF PAY [facility] Number: Effective Repository Date:2018-05-29 05/11/2018 JOLIE L Primary JOLIE L [place] [id number] Insurance:MEDICARE GRAHAMDOB: Community [address] Number: Repository [address]Mhj: 330 [id number] [phone] (HP) Date:2018-05-11 05/11/2018 Secondary JOLIE L [place] Insurance:AARPPolicy GRAHAMDOB: Community Number: [id number] Hospital [id number] Repository Date:7422-72-91[address]Q[address], [place] [address]HJ: 05/11/2018 Tertiary NOT GIVENUNK [place] Insurance:SELF PAY [facility] Number: Effective Repository Date:2018-05-11 05/08/2018 JOLIE L Primary JOLIE L [place] [id number] Insurance:MEDICARE GRAHAMDOB: [address] [place] Number: Repository [address]Hmh: 330 [id number] [phone] () Date:2018-04-24 05/08/2018 Secondary JOLIE L [place] Insurance:AARPPolicy GRAHAMDOB: Community Number: [id number] Hospital [id number] Repository Date:1050-63-18[address], [place] [address]QM: 05/08/2018 Tertiary NOT GIVENUNK [place] Insurance:SELF PAY [facility] Number: Effective Repository Date:2018-05-20 04/28/2018 JOLIE L Primary JOLIE L [place] [id number] Insurance:MEDICARE GRAHAMDOB: [address] Number: Repository [address]Upa: [id number] [phone] Date:2018-04-28 () 04/28/2018 Secondary JOLIE L [place] Insurance:AARPPolicy GRAHAMDOB: Community Number: [id number] Hospital [id number] Repository Date:3071-45-00[address], [place] [address]RA: 04/28/2018 Tertiary NOT GIVENUNK [place] Insurance:SELF PAY [facility] Effective Repository Date:2018-04-28 04/24/2018 JOLIE L Primary JOLIE L [place] [id number] Insurance:MEDICARE GRAHAMDOB: [facility] PART A [facility] [id number] Rep[place] [id number]: [id number] [phone] Date:2018-04-10 () 04/24/2018 Secondary JOLIE L [place] Insurance:AARPPolicy GRAHAMDOB: Community Number: [id number] Hospital [id number] Repository Date:8294-87-14X[address]CBGQICD, [place] [address]ZA: 04/24/2018 Tertiary NOT GIVENUNK [place] Insurance:SELF PAY [facility] Number: Effective Repository Date:2018-04-24 04/10/2018 JOLIE L Primary JOLIE L [place] [id number] Insurance:MEDICARE GRAHAMDOB: [facility] PART [facility] [id number] Number: Repository [id number]: [id number] [phone] Date:2018-03-26 () 04/10/2018 Secondary JOLIE L [place] Insurance:AARPPolicy GRAHAMDOB: Community Number: [id number] Hospital [id number] Repository Date:7349-31-60[address]RTFY, [place] [address]AY: 04/10/2018 Tertiary NOT GIVENUNK [place] Insurance:SELF PAY [facility] Number: Effective Repository Date:2018-04-10 04/06/2018 JOLIE L Primary JOLIE L [place] [id number] Insurance:MEDICARE GRAHAMDOB: Community [place] PART A [facility] [id number] Number: Repository [id number]: [id number] [phone] Date:2018-04-06 () 04/06/2018 Secondary JOLIE L Kristofer Insurance:AARPPolicy GRAHAMDOB: Community Number: [id number] Hospital [id number] Repository Date:0353-20-07[address]NDE, [place] [address]VL: 04/06/2018 Tertiary NOT GIVENUNK Kristofer Insurance:SELF PAY [facility] Number: Effective Repository Date:2018-04-06 03/26/2018 JOLIE L Primary JOLIE L Kristofer [id number] Insurance:MEDICARE GRAHAMDOB: [facility] PART [facility] [id number], [place] Number: Repository [id number]: [id number] [phone] Date:2018-01-15 () 03/26/2018 Secondary JOLIE L Kristofer Insurance:AARPPolicy GRAHAMDOB: Community Number: [id number] Hospital [id number] Repository Date:7720-10-19BP [id number], [place] [address]HQ: 03/26/2018 Tertiary NOT GIVENUNK Kristofer Insurance:SELF PAY [facility] Number: Effective Repository Date:2018-03-26 03/19/2018 Jolie L Primary Jolie L [place] [id number] Insurance:MEDICARE GrahamDOB: [facility] PART A [facility] [id number] Number: Repository [address]Osn: [id number] [phone] Date:2018-03-19 () 03/19/2018 Secondary Jolie L [place] Insurance:AARPPolicy GrahamDOB: Community Number: [id number] Hospital [id number] Repository Date:[id number] [facility] [id number], [place] [address]CE: 03/19/2018 Tertiary NOT GIVENUNK [place] Insurance:SELF PAY [facility] Number: Effective Repository Date:2018-03-19 03/17/2018 Jolie L Primary Jolie L Kristofer [id number] Insurance:MEDICARE GrahamDOB: [facility] [id number] Number: Repository [id number]: [id number] [phone] Date:2018-03-09 () 03/17/2018 Secondary Jolie L [place] Insurance:AARPPolicy GrahamDOB: [facility] Number: [id number] Hospital [id number] Repository Date:[id number] [address]HNJPK, [place] [address]IV: 03/17/2018 Tertiary NOT GIVENUNK Kristofer Insurance:SELF PAY [facility] Number: Effective Repository Date:2018-03-09 03/06/2018 Jolie L Primary Jolie L Kristofer [id number] Insurance:MEDICARE GrahamDOB: [facility] [id number] Number: Repository [id number]: [id number] [phone] Date:2018-03-06 () 03/06/2018 Secondary Jolie L [place] Insurance:AARPPolicy GrahamDOB: Community Number: [id number] Hospital [id number] Repository Date:0667-51-83JG [address]EQ[address]JJV, [place] [address]PH: 03/06/2018 Tertiary NOT GIVENUNK Kristofer Insurance:SELF PAY [facility] Number: Effective Repository Date:2018-03-06 01/01/2018 Jolie L Primary Jolie L [place] [id number] Old Insurance:AARPPolicy GrahamDOB: [facility] Number: [id number] [id number] Repository [address]Kpg: (330) Date:[id number] [phone] () [id number], [place] [address]GJ: 01/01/2018 Secondary Jolie L [place] Insurance:MEDICARE GrahamDOB: Community PART A [facility] [id number] [facility] Number: Repository [id number] Date:2017-11-04 01/01/2018 Tertiary NOT GIVENUNK Kristofer Insurance:SELF PAY [facility] Number: Effective Repository Date:2017-11-04 01/01/2018 Jolie L Primary Jolie L [place] [id number] Old Insurance:AARPPolicy GrahamDOB: [facility] Number: [id number] [place] [id number] Repository [address]Npm: (330) Date:2016-13-80[phone] () [place]36719[place]WPBPZI, [place] [address]PL: 01/01/2018 Secondary Jolie L Kristofer Insurance:MEDICARE GrahamDOB: Community PART A [facility] [id number] Hospital Number: Repository [id number] Date:2018-01-01 01/01/2018 Tertiary NOT GIVENUNK Kristofer Insurance:SELF PAY [facility] Number: Effective Repository Date:2018-01-01
== END ==
PROVIDERS: Family Provider Family Medicine; PCP Family Medicine; Visit Provider Family Medicine
DX: I10 Essential (primary) hypertension (principal); E03.9 Hypothyroidism, unspecified
CPT/HCPCS: 36415; 80048; 84436; 84443; 84481

== ENCOUNTER → 2019-05-13 | Outpatient (CLI) | payer MEDICARE, OTHER, SELFPAY ==
[2019-02-01 14:12] VITALS: BMI 21.2
[2019-05-13 13:02] LABS: Anion Gap 6 (5-15); BUN 9 mg/dL (7-18); BUN/Creat Ratio 15.7 RATIO (10-20); Chloride 100 mmol/L (98-107); Cholesterol 192 mg/dL (200); Creatinine, Serum 0.58 mg/dL (0.55-1.02); EST Glomerular Filtration Rate 107 mL/min (>60); Est Glom Filt Rate - Afr Amer 130 mL/min (>60); Glucose 91 mg/dL (74-106); High Density Lipoprotein 81 mg/dL; Sodium Level 133 mmol/L (136-145); Thyroid Stim Hormone (TSH) 1.44 uIU/mL (0.358-3.74); Triglycerides 63 mg/dL; Very Low Density Lipoprotein 13 mg/dL (5-40)
== END | disposition home or self-care (01) ==
LOC: MFPLAB 10:15
PROVIDERS: Family Provider Family Medicine; PCP Family Medicine; Referring Provider Family Medicine; Visit Provider Family Medicine
DX: Z00.00 Encounter for general adult medical examination without abnormal findings (principal); E03.9 Hypothyroidism, unspecified
CPT/HCPCS: 36415; 80048; 80061; 84443

== ENCOUNTER → 2019-11-11 11:11 | Outpatient (CLI) | payer MEDICARE, OTHER, SELFPAY ==
[2019-06-15 14:55] VITALS: BMI 21.9
[2019-11-11 13:18] LABS: Anion Gap 8 (5-15); BUN 10 mg/dL (7-18); BUN/Creat Ratio 16.2 RATIO (10-20); Calcium,Total 9.4 mg/dL (8.5-10.1); Chloride 102 mmol/L (98-107); Cholesterol 189 mg/dL (200); Creatinine, Serum 0.62 mg/dL (0.55-1.02); EST Glomerular Filtration Rate 99 mL/min (>60); Est Glom Filt Rate - Afr Amer 119 mL/min (>60); Glucose 104 mg/dL (74-106); High Density Lipoprotein 67 mg/dL; Sodium Level 137 mmol/L (136-145); Thyroid Stim Hormone (TSH) 2.05 uIU/mL (0.358-3.74); Triglycerides 105 mg/dL; Very Low Density Lipoprotein 21 mg/dL (5-40)
== END ==
PROVIDERS: Family Provider Family Medicine; PCP Family Medicine; Referring Provider Family Medicine; Visit Provider Family Medicine
DX: E03.9 Hypothyroidism, unspecified (principal); I10 Essential (primary) hypertension
CPT/HCPCS: 36415; 80048; 80061; 84443

== ENCOUNTER 2020-04-08 15:14 | Emergency (ER) | payer MEDICARE, OTHER, SELFPAY ==
[2020-03-30 10:16] VITALS: BMI 23.1
[2020-04-08 15:15] VITALS: BP 181/92; PULSE 104; RESP 18; TEMP 36.6; O2SAT 99; BMI 24.6
--- NOTE | 2020-04-08 15:31 | ED.VIS.GEN ---
History of Present Illness Chief Complaint: Other, Pain/Inj Informant: Patient Onset: Days Context: Sudden Onset Timing: Intermittent Quality: Protrusion of bladder and low back pain Location: Suprapubic and low back Current Severity: Mild Maximum Severity: Severe Worsened by: Low back pain worse with movement Relieved by: Nothing Associated Symptoms: Nothing per patient Narrative: Patient is an 80-year-old woman who has appointment for this coming Friday to be seen by Dr. Cedeño for cystocele. She is complaining of pain. She denies dysuria, frequency, urgency or hematuria. She believes her low back pain is because of her strain her self to push her bladder back in. She does report increased pain with movement. She denies fever, chills or night sweats. She denies nausea, vomiting or diarrhea. She denies constipation. There is no history of trauma. She has not noted a rash. Prior similar symptoms: Yes Recent Illness/Hospitalization: No - Past Medical History (1) Arthritis Status: Acute (2) Thyroid disease Status: Acute (3) Atherosclerotic heart disease of [place] coronary artery without angina pectoris Status: Chronic Comment: Mild per cath 08/15/1998 @ [facility] per Dr. Miranda: 10-25% ostial first diagonal stenosis; 10-25% ostial RCA artery stenosis (4) GERD (gastroesophageal reflux disease) Status: Chronic (5) HLD (hyperlipidemia) Status: Chronic (6) HTN (hypertension) Status: Chronic (7) History of cataract surgery Status: Chronic (8) History of left heart catheterization Status: Chronic Comment: 08/15/1998 @ [facility] per Dr. Miranda: 10-25% ostial first diagonal stenosis; 10-25% ostial RCA artery stenosis (9) History of Alexei fundoplication Status: Resolved Past Medical History - Allergies and Home Meds Allergies/Adverse Reactions: Allergies omeprazole Allergy (Intermediate, Verified 04/08/20 15:45) Itching Penicillins Allergy (Verified 04/08/20 15:45) Unknown lisinopril Adverse Reaction (Intermediate, Verified 04/08/20 15:45) Cough Primary Care Physician: Amos King MD [Primary Care Provider] - Prior records reviewed: Yes Surgical History: - - Previously documented Lives: Alone Smoking Status: Never smoker Alcohol: None Drugs: None Review of Systems General: Denies: Chills, Fever, Malaise, Sweats ENT: Denies: Rhinorrhea, Sore throat Cardiovascular: Denies: Chest pain, Palpitations Respiratory: Denies: Dyspnea, Cough, Sputum, Dyspnea on exertion Gastrointestinal: Denies: Abdominal pain, Nausea, Vomiting, Diarrhea, Melena, Hematochezia Genitourinary: Denies: Dysuria, Hematuria, Frequency Musculoskeletal: Reports: Back pain. Denies: Myalgias, Arthralgias, Neck pain, Swelling, Extremity Pain, -, - Skin: Denies: Rash, Wounds Neurological: Denies: Headache, Weakness, Numbness Physical Exam Vital Signs/Narrative: Vital Signs Temp Pulse Resp BP Pulse Ox 04/08/20 15:15 97.8 F 104 H 18 181/92 H 99 Inital Vital Signs reviewed: Yes General: Well nourished, Well developed, No Acute Distress Head: Normocephalic, Atraumatic Eyes: Perrl, EOMI. Negative for: Pale conjunctiva, Scleral icterus ENT: Moist mucous membranes, No rhinorrhea Neck: Supple, Nontender, No lymphadenopathy, No JVD Cardiovascular: Regular rate, Regular rhythm, No murmurs, Normal S1, Normal S2 Respiratory: No distress, CTA bilaterally, Chest nontender Abdomen: Soft, Nondistended, Normal bowel sounds, No masses. Negative for: Nontender - Tenderness over the suprapubic area to palpation., Hepatomegaly, Splenomegaly, Mass, Pulsatile mass Rectal: Deferred : - - There is a small cystocele noted. The cystocele was easily reduced. There is no abnormality of the labia minora or majora. There is no abnormality noted of the introitus. There is no vaginal discharge or vaginal bleeding. Back: Normal Inspection. Negative for: Nontender, CVA tenderness, Spinal tenderness Extremities: Nontender, No edema Skin: No rash, No Trauma. Negative for: Cyanosis, Diaphoresis, Jaundice, Pallor Neurological: Alert, Oriented x3, Cranial nerves II-XII grossly intact, Normal Strength, Normal Sensation Diagnostic/Tx/Re-eval Laboratory Results 04/08/20 15:50 Urine Color Straw Urine Clarity Clear Urine pH 7.0 Ur Specific Clarinda 1.010 Urine Protein Negative Urine Glucose (UA) Normal Urine Ketones 15 H Urine Occult Blood Negative Urine Nitrite Negative Urine Bilirubin Negative Urine Urobilinogen Normal Ur Leukocyte Esterase Negative Urine RBC 0 SEEN Urine WBC 0 SEEN Ur Squamous Epith Cells 0-5 SEEN Urine Bacteria 0 SEEN Urine Mucus 0 SEEN UA is unremarkable and there is no evidence of infection. - Medical Decision Making With suprapubic pain and low back pain concern patient may have cystitis. UA was obtained. Patient has reproducible back pain as well as pain with movement consistent with muscle strain. There is a small cystocele noted. No intervention needs to be undertaken at this time. Patient has a very small cystocele which is easily reduced. She was instructed to keep her appointment with Dr. Jessee Cedeño for this coming Friday. She was told the cause of her low back pain is musculoskeletal and treatment is ice and anti-inflammatory. The cause of her suprapubic abdominal discomfort is unknown. ED Disposition - Plan for ED Patient: Disposition: Home or Assisted Living Diagnosis: Cystocele with prolapse, Left low back pain, Suprapubic pain, acute Instructions: ED LUMBAR SPRAIN/STRAIN, Cystocele (Prolapsed Bladder) Referrals: Amos King MD [Primary Care Provider] - Jessee Cedeño MD [STAFF PHYSICIAN] - Keep Nick appointment
[2020-04-08 15:58] LABS: Bacteria 0 SEEN /hpf (None Seen); Mucous, Urine 0 SEEN /hpf (<or=2+); Red Blood Cells-Urine 0 SEEN /hpf (0-5); White Blood Cells 0 SEEN /hpf (0-5)
[2020-04-08 16:00] LABS: Color, Urine Straw (Yellow); Glucose, Dipstick Normal (Normal); Ketone-Dipstick 15 mg/dl (Negative); Leukocyte Esterase-Dipstick Negative /ul (Negative); Nitrite-Dipstick Negative (Negative); Occult Blood-Urine Negative /ul (Negative); Protein-Dipstick Negative (Negative); Urine Bilirubin Dipstick Negative (Negative); Urine Clarity Clear (Clear); Urine Urobilinogen Normal (Normal)
[2020-04-08 16:24] LABS: Squamous Epithelial Cells - UA 0-5 SEEN /hpf (5-10)
[2020-04-08 17:28] VITALS: BP 164/72; PULSE 81; RESP 16; O2SAT 99
== END 2020-04-08 17:37 | disposition home or self-care (01) ==
PROVIDERS: Emergency Provider Emergency Medicine; PCP Family Medicine
DX: N81.4 Uterovaginal prolapse, unspecified (principal); M54.5 Low back pain; M19.90 Unspecified osteoarthritis, unspecified site; K21.9 Gastro-esophageal reflux disease without esophagitis; E78.5 Hyperlipidemia, unspecified; I10 Essential (primary) hypertension; E07.9 Disorder of thyroid, unspecified; Z79.82 Long term (current) use of aspirin; Z79.899 Other long term (current) drug therapy
CPT/HCPCS: 81001; 99282

== ENCOUNTER → 2020-05-04 | Outpatient (CLI) | payer MEDICARE, OTHER, SELFPAY ==
[2020-03-30 10:16] VITALS: BMI 23.1
[2020-04-08 15:15] VITALS: BMI 24.6
--- NOTE | 2020-05-04 12:24 | ECHOD_ITS ---
Reason For Study: Arrhythmia Procedure This was a 2D Doppler, Color Flow transthoracic echocardiogram. The study was technically difficult. Patient scanned supine due to back pain. Exam performed in department. Left Ventricle Normal size and thickness. The estimated ejection fraction is 65 %. Stage 1 diastolic dysfunction. No regional wall motion abnormalities noted. Right Ventricle Normal size and thickness. Normal systolic function. Atria Normal left atrium. Normal right atrium. Normal atrial septum. Mitral Valve The mitral valve is structurally normal. No prolapse or stenosis seen. Tricuspid Valve Normal tricuspid valve. Unable to estimate RV systolic pressure due to insufficient tricuspid regurgitant envelope. Aortic Valve Normal aortic valve. Trisinus/trileaflet aortic valve. Pulmonic Valve Normal pulmonic valve. Great Vessels Normal aortic root. Normal arch. Normal inferior vena cava. Inferior vena cava collapse with sniff. Pericardium/Pleural No pericardial effusion. MMode/2D Measurements & Calculations LVIDd: 2.7 cm IVSd: 0.81 cm Ao root diam: 2.7 cm LVIDs: 1.6 cm LVPWd: 0.84 cm RVDd: 3.1 cm FS: 42.3 % LAV(MOD-bp): 25.9 ml LA A4 area: 11.7 cm2 LA dimension(2D): 3.0 cm LAV(MOD-bp) Indexed: 17.9 ml/m2 LAV(MOD-sp2): 27.1 ml LAV(MOD-sp4): 21.7 ml RA A4 area: 10.6 cm2 Doppler Measurements & Calculations MV E max patel: 69.1 cm/sec Lat Peak E' Patel: 11.8 cm/sec Med Peak E' Patel: 7.0 cm/sec MV A max patel: 105.3 cm/sec E/E' lat: 5.8 E/E' med: 9.8 MV E/A: 0.66 Ao V2 max: 133.8 cm/sec LV V1 max: 120.1 cm/sec PA V2 max: 88.7 cm/sec Ao max P.2 mmHg LV V1 max P.8 mmHg Interpretation Summary The estimated ejection fraction is 65 %. Stage 1 diastolic dysfunction. Unable to estimate RV systolic pressure due to insufficient tricuspid regurgitant envelope. Compared to echo report dated 07/04/2017, no appreciable changes noted. Ordering Physician: Jona Padron Referring Physician: Amos King Performed By: Marcelle Raza RDCS
== END | disposition home or self-care (01) ==
LOC: CVS 12:24
PROVIDERS: PCP Family Medicine; Referring Provider Internal Medicine Cardiovascular Disease; Visit Provider Internal Medicine Cardiovascular Disease
DX: I25.10 Atherosclerotic heart disease of native coronary artery without angina pectoris (principal)
CPT/HCPCS: 93306

== ENCOUNTER → 2020-05-15 09:43 | Outpatient (CLI) | payer MEDICARE, OTHER, SELFPAY ==
[2020-05-15 12:54] LABS: Anion Gap 7 (5-15); BUN 8 mg/dL (7-18); BUN/Creat Ratio 14.5 RATIO (10-20); Calcium,Total 9.1 mg/dL (8.5-10.1); Chloride 96 mmol/L (98-107); Creatinine, Serum 0.55 mg/dL (0.55-1.02); EST Glomerular Filtration Rate 112 mL/min (>60); Est Glom Filt Rate - Afr Amer 136 mL/min (>60); Glucose 120 mg/dL (74-106); Potassium 3.9 mmol/L (3.5-5.1); Sodium Level 131 mmol/L (136-145); Thyroid Stim Hormone (TSH) 1.77 uIU/mL (0.358-3.74)
== END ==
PROVIDERS: PCP Family Medicine; Visit Provider Family Medicine
DX: I10 Essential (primary) hypertension (principal); E03.9 Hypothyroidism, unspecified
CPT/HCPCS: 36415; 80048; 84443

== ENCOUNTER → 2020-08-01 | Outpatient (CLI) | payer MEDICARE, OTHER, SELFPAY ==
--- NOTE | 2020-08-01 11:13 | RAD_ITS ---
STUDY: X-RAY - UNILATERAL RIBS ( LEFT ) WITH CHEST REASON FOR EXAM: Female, 80 years old. LEFT AXILLARY RIB PAIN TECHNIQUE - RIBS: 2 view(s) of the ribs. TECHNIQUE - CHEST: Single frontal view of the chest. COMPARISON: None. FINDINGS - RIBS: Normal visualized ribs without a demonstrated fracture. FINDINGS - CHEST: The lungs are clear and expanded. There is no demonstrated pleural abnormality. Normal size heart. Normal mediastinum and nighat. Normal visualized pulmonary arteries. Normal visualized aortic arch and descending thoracic aorta. Normal visualized thoracic spine. Normal visualized ribs, clavicles, and shoulders. Cholecystectomy clips. RAD/Ribs Uni Min 3V w/PA Chest IMPRESSION: RIBS: Normal x-ray examination of the ribs. CHEST: No acute pulmonary findings. Electronically Signed: River Lara MD at 17:02 EDT Tel , Service support ,
--- NOTE | 2020-08-01 11:13 | RAD_ITS ---
STUDY: X-RAY - PELVIS AND LEFT HIP REASON FOR EXAM: Female, 80 years old. FALL,PAIN AND OUTER THIGH NUMBNESS TECHNIQUE: 3 views of the pelvis and hip. COMPARISON: None. FINDINGS: There is a non-specific bowel gas pattern. Diffuse colonic fecal retention. Normal visualized soft tissue structures. Probable pessary ring in the pelvis. Normal bilateral iliac wings, sacroiliac joints and visualized sacrum. Normal bilateral superior and inferior pubic rami. Normal pubic symphysis. Normal bilateral ischial tuberosities. Normal visualized femoral head. Normal acetabulum. Degenerative changes with slight narrowing at the hip joint. RAD/HIP, UNI W/ Pelvis 2-3 Views IMPRESSION: No acute bony injury of the pelvis and hip. Electronically Signed: Jose Luis Ye DO at 18:11 EDT Tel [phone], Service support ,
== END | disposition home or self-care (01) ==
LOC: MTRAD 11:11
PROVIDERS: PCP Family Medicine; Referring Provider Registered Nurse; Visit Provider Registered Nurse
DX: R07.81 Pleurodynia (principal)
CPT/HCPCS: 71101; 73502

== ENCOUNTER → 2020-11-13 09:21 | Outpatient (CLI) | payer MEDICARE, OTHER, SELFPAY ==
[2020-08-04 13:03] VITALS: BMI 22.9
[2020-11-13 12:47] LABS: Anion Gap 7 (5-15); BUN 5 mg/dL (7-18); BUN/Creat Ratio 7.4 RATIO (10-20); Calcium,Total 9.1 mg/dL (8.5-10.1); Chloride 99 mmol/L (98-107); Cholesterol 167 mg/dL (200); Creatinine, Serum 0.68 mg/dL (0.55-1.02); EST Glomerular Filtration Rate 88 mL/min (>60); Est Glom Filt Rate - Afr Amer 107 mL/min (>60); Free T3 2.4 pg/mL (2.18-3.98); Glucose 101 mg/dL (74-106); High Density Lipoprotein 68 mg/dL; Potassium 3.7 mmol/L (3.5-5.1); Sodium Level 133 mmol/L (136-145); T4 Total, Thyroxin 10.7 ug/dL (4.8-13.9); Triglycerides 79 mg/dL; Very Low Density Lipoprotein 16 mg/dL (5-40)
== END ==
PROVIDERS: PCP Family Medicine; Visit Provider Family Medicine
DX: I10 Essential (primary) hypertension (principal); E03.9 Hypothyroidism, unspecified
CPT/HCPCS: 36415; 80048; 80061; 84436; 84443; 84481

== ENCOUNTER → 2021-05-09 09:30 | Outpatient (CLI) | payer MEDICARE, OTHER, SELFPAY ==
[2020-08-04 13:03] VITALS: BMI 22.9
[2021-05-09 12:49] LABS: Anion Gap 6 (5-15); BUN 8 mg/dL (7-18); BUN/Creat Ratio 14.8 RATIO (10-20); Calcium,Total 9.5 mg/dL (8.5-10.1); Chloride 98 mmol/L (98-107); Cholesterol 181 mg/dL (200); Creatinine, Serum 0.54 mg/dL (0.55-1.02); EST Glomerular Filtration Rate 114 mL/min (>60); Est Glom Filt Rate - Afr Amer 138 mL/min (>60); Free T3 2.4 pg/mL (2.18-3.98); Glucose 102 mg/dL (74-106); High Density Lipoprotein 81 mg/dL; Potassium 3.8 mmol/L (3.5-5.1); Sodium Level 132 mmol/L (136-145); T4 Free Direct 1.29 ng/dL (0.76-1.46); Thyroid Stim Hormone (TSH) 1.71 uIU/mL (0.358-3.74); Triglycerides 71 mg/dL; Very Low Density Lipoprotein 14 mg/dL (5-40)
== END ==
PROVIDERS: PCP Family Medicine; Referring Provider Family Medicine; Visit Provider Family Medicine
DX: E03.9 Hypothyroidism, unspecified (principal); I10 Essential (primary) hypertension
CPT/HCPCS: 36415; 80048; 80061; 84439; 84443; 84481

== ENCOUNTER 2021-06-30 22:00 | Emergency (ER) | payer MEDICARE, OTHER, SELFPAY ==
[2021-06-18 14:34] VITALS: BMI 22.8
[2021-06-30 22:01] VITALS: BP 164/89; PULSE 88; RESP 15; TEMP 36.9; O2SAT 96; BMI 21.1
--- NOTE | 2021-06-30 23:22 | RAD_ITS ---
STUDY: X-RAY - LUMBAR SPINE REASON FOR EXAM: Female, 81 years old. low back pain TECHNIQUE: 3 view(s) of the lumbar spine were obtained. COMPARISON: 05/29/2018 FINDINGS: Normal lumbar lordosis. There is mild scoliosis with convexity to the left. There is a normal alignment of the vertebrae. There is diffuse demineralization with multi-level endplate spondylosis. There is multi-level degenerative disc disease with multi-level disc space narrowing. There is severe compression fracture at T12. There is mild compression fracture of L4. Multilevel bilateral facet hypertrophy. The soft tissue structures are unremarkable. RAD/Lumbar Spine 2 or 3 Views IMPRESSION: Diffuse osteopenia along with degenerative disease as described. Severe compression fracture of T12 and mild compression fracture of L4. These are new compared to prior study of 2018 although exact age indeterminate. Clinical correlation recommended and comparison to more recent films can help. Otherwise this may be more accurately characterize with MRI or bone scan. Electronically Signed: Radha Wayne MD at 0:27 EDT , Service support ,
--- NOTE | 2021-06-30 23:47 | EDS_ITS ---
HPI History of Present Illness Chief Complaint: Constipation Informant: patient Narrative Narrative: Patient is a 81-year-old female who presents to the emergency department for constipation. She states her last bowel movement was Friday. She does have chronic issues with constipation. She does take MiraLAX daily. She tried a suppository earlier today which also did not give her relief. She has not been eating very much since the symptoms started. She has been drinking plenty of fluids. She denies any significant abdominal pain. No chest pain or shortness of breath. No fevers or chills. She denies ever having to come to the emergency department for constipation before in the past. She denies any urinary symptoms. No blood or black tarry stools previously. [facility] Medical History (Updated 07/01/21 @ 23:[address] Mayo Guo, ) Arthritis Atherosclerotic heart disease of [place] coronary artery without angina pectoris Bronchitis Chest pain, unspecified Constipation Essential hypertension GERD (gastroesophageal reflux disease) Macular degeneration Maxillary sinusitis Pure hypercholesterolemia Thyroid disease Home Medications calcium carbonate 500 mg (1,250 mg)-vitamin D3 200 unit tablet 2 tab PO QDAY tab 01/01/18 [History Last Taken Unknown] levothyroxine 50 mcg tablet 50 mcg PO QDAY 90 Days #90 tab 01/01/18 [History Last Taken Unknown] omega-3 fatty acids 1,000 mg capsule 1,000 mg PO QDAY 03/19/18 [History Last Taken Unknown] aspirin 81 mg tablet,delayed release 81 mg PO QDAY 03/20/18 [History Last Taken Unknown] vitamin B complex 1 tab PO QDAY 03/20/18 [History Last Taken Unknown] vitamins A,C,J-wdbz-zrniml 14,320 unit-226 mg-200 unit capsule 1 cap PO .q day cap 03/20/18 [History Last Taken Unknown] acetaminophen 325 mg tablet 325 mg PO Q6H PRN 07/29/18 [History Last Taken Unknown] ketotifen fumarate 0.025 % (0.035 %) eye drops 1 drp OPHTHALMIC BID 07/29/18 [History Last Taken Unknown] losartan 25 mg tablet 25 mg PO DAILY #90 tab 05/21/21 [Rx Last Taken Unknown] aloe vera 25 mg capsule 25 mg PO DAILY cap 06/08/21 [History Last Taken Unknown] amlodipine 5 mg tablet 5 mg PO QDAY #90 tab 06/08/21 [Rx Last Taken Unknown] multivitamin with min no.36-iron,carbonyl-FA 16 mg iron-0.38 mg tablet 1 tab PO DAILY tab 06/08/21 [History Last Taken Unknown] polyethylene glycol 3350 17 gram/dose oral powder 17 g PO DAILY PRN g 06/08/21 [History Last Taken Unknown] carvedilol 3.125 mg tablet 3.125 mg PO BID #60 tab 06/18/21 [Rx Last Taken Unknown] Allergy/AdvReac Type Severity Reaction Status Date / Time omeprazole Allergy Intermediate Itching Verified 06/30/21 22:06 Penicillins Allergy Unknown Verified 06/30/21 22:06 lisinopril AdvReac Intermediate Cough Verified 06/30/21 22:06 Family History Mother CAD (coronary artery disease) Father CAD (coronary artery disease) Brother Heart disease Myocardial infarction Other Cancer Dementia Surgical History History of cataract surgery History of left heart catheterization History of Alexei fundoplication Tubal ligation status Social History Smoking Status: Never smoker alcohol intake: never substance use type: does not use caffeine: Yes what type of physical activity do you participate in: other details: [employer] video frequency: daily seatbelt use: always do you feel safe at home: Yes additional social history: ROS ROS ED Constitutional Constitutional ED: Denies chills or fever(s) Eyes Eyes: Denies change in vision ENT ENT ED: Denies epistaxis Cardiovascular Cardiovascular: Denies chest pain Respiratory/Chest Respiratory/Chest: Denies cough or dyspnea Gastrointestinal Gastrointestinal: Reports constipation; Denies abdominal pain, diarrhea, melena, nausea or vomiting Genitourinary Genitourinary ED: Denies dysuria, hematuria or urinary frequency Musculoskeletal Musculoskeletal: Reports back pain; Denies neck pain Integumentary Denies rash Neurologic Neurologic: Denies dizziness, headache(s) or weakness EXAM Physical Exam Const Vital Signs: 07/01/21 00:26 Pulse Rate 64 Respiratory Rate 16 Oxygen Delivery Method Room Air Positive well nourished and well developed General Appearance ED: well developed and NAD HEENT Reports normocephalic, head/scalp atraumatic and moist mucous membranes Eyes PERRL and EOMs intact bilaterally Neck supple Resp normal respiratory effort and clear to auscultation bilaterally Auscultation: Negative for rales, rhonchi or wheezes Cardio regular rate, regular rhythm and no murmurs GI normal to inspection, nondistended, normoactive bowel sounds and non-tender GI Narrative: Rectal exam performed with nurse stone derrickman and rigger. No stool in rectal vault. Normal external rectum. Palpation: soft; Negative for guarding or rebound tenderness present Back/Spine no CVA tenderness Extremity normal to inspection General Extremety ED: Negative for edema or tenderness General Extremity: Negative for edema Neuro Sensorium / Orientation: alert Motor Exam: strength 5/5 throughout Psych mental status grossly normal Skin no rashes or lesions noted MDM MDM MDM Narrative Medical decision making narrative: Patient presents the ED for constipation. Her last bowel movement was Friday. Upon arrival to the emerge department she is mildly hypertensive otherwise normal vital signs. No abdominal pain or nausea/vomiting. Rectal exam did not reveal any stool. When moving the patient she is complaining of bilateral low back pain. Will check x-ray of the abdomen as well as the lumbar spine. X-ray of the KUB showed a nonspecific bowel gas pattern. X-ray of the lumbar spine showed compression fractures. These are age-indeterminate. We will have her follow-up with her PCP/neurosurgery. Otherwise no signs of obstruction. She does feel comfortable being discharged home. Return precautions are reviewed. She otherwise is neurovascular intact. Discharged home in stable condition. All questions answered. Radiography Diagnostic Testing: Radiology Impression Lumbar Spine X-Ray 06/30/21 23:22 IMPRESSION: Diffuse osteopenia along with degenerative disease as described. Severe compression fracture of T12 and mild compression fracture of L4. These are new compared to prior study of 2018 although exact age indeterminate. Clinical correlation recommended and comparison to more recent films can help. Otherwise this may be more accurately characterize with MRI or bone scan. Electronically Signed: Radha Wayne MD at 0:27 EDT , Service support , KUB X-Ray 06/30/21 23:53 IMPRESSION: Nonspecific gas pattern. Electronically Signed: Radha Wayne MD at 0:15 EDT , Service support , Discharge Plan Triage Chief Complaint: Constipation ED Provider: Mayo Guo Dx/Rx/DC Orders Clinical Impression: Constipation, Back pain, Compression fracture Instructions: ED Back Pain (Acute or Chronic), ED Constipation (Adult) Prescriptions: No Action levothyroxine 50 mcg tablet 50 mcg PO QDAY 90 Days Qty: 90 RF: 0 calcium carbonate-vitamin D3 500 mg(1,250mg) -200 unit tablet 2 tab PO QDAY RF: 0 aspirin [Adult Aspirin Regimen] 81 mg tablet,delayed release (DR/EC) 81 mg PO QDAY RF: 0 vitamins A,C,J-qjwo-ibmiqv [PreserVision AREDS] 14,320-226-200 mjse-ha-guoj capsule 1 cap PO .q day RF: 0 vitamin B complex tablet 1 tab PO QDAY RF: 0 omega-3 fatty acids [Fish Oil Concentrate] 1,000 mg capsule 1,000 mg PO QDAY RF: 0 ketotifen fumarate [Zaditor] 0.025 % (0.035 %) drops 1 drp OPHTHALMIC BID RF: 0 acetaminophen [Tylenol] 325 mg tablet 325 mg PO Q6H PRN (Reason: Pain Or Fever) RF: 0 polyethylene glycol 3350 [Miralax] 17 gram/dose powder 17 g PO DAILY PRN (Reason: constipation) RF: 0 Geritol Complete 16 mg iron- 0.38 mg tablet 1 tab PO DAILY RF: 0 aloe vera 25 mg capsule 25 mg PO DAILY RF: 0 amlodipine 5 mg tablet 5 mg PO QDAY Qty: 90 RF: 3 carvedilol 3.125 mg tablet 3.125 mg PO BID Qty: 60 RF: 11 losartan 25 mg tablet 25 mg PO DAILY Qty: 90 RF: 3 Primary Care Provider: Amos King Referrals: Amos King MD [Primary Care Provider] - 3-5 Days Disposition Disposition: Home, Self Care Discharge Date/Time: 07/01/21 00:53
--- NOTE | 2021-06-30 23:53 | RAD_ITS ---
STUDY: X-RAY - ABDOMEN/PELVIS REASON FOR EXAM: Female, 81 years old. Constipation TECHNIQUE: Single AP view of the abdomen / pelvis. COMPARISON: None. FINDINGS: Normal visualized lung bases. There is an unremarkable bowel gas pattern. There is no demonstrated free abdominal air. Right upper quadrant surgical clips noted. Otherwise the visualized liver, spleen and kidneys are grossly normal in size and morphology. Normal soft tissue structures. Diffuse osteopenia with degenerative disease of the spine, bilateral SI joints and hips. RAD/Abdomen Single View IMPRESSION: Nonspecific gas pattern. Electronically Signed: Radha Wayne MD at 0:15 EDT , Service support ,
[2021-07-01 00:26] VITALS: PULSE 64; RESP 16
[2021-07-01] MEDS: traMADol 50 MG Tablet PO (00:51)
== END 2021-07-01 00:53 | disposition home or self-care (01) ==
PROVIDERS: Emergency Provider Emergency Medicine; PCP Family Medicine
DX: K59.00 Constipation, unspecified (principal); M48.54XA Collapsed vertebra, not elsewhere classified, thoracic region, initial encounter for fracture; M48.56XA Collapsed vertebra, not elsewhere classified, lumbar region, initial encounter for fracture; M19.90 Unspecified osteoarthritis, unspecified site; I25.10 Atherosclerotic heart disease of native coronary artery without angina pectoris; I10 Essential (primary) hypertension; K21.9 Gastro-esophageal reflux disease without esophagitis; E78.00 Pure hypercholesterolemia, unspecified; E07.9 Disorder of thyroid, unspecified; Z79.899 Other long term (current) drug therapy
CPT/HCPCS: 72100; 74018; 99283

== ENCOUNTER → 2021-11-08 09:18 | Outpatient (CLI) | payer MEDICARE, OTHER, SELFPAY ==
[2021-11-08 11:36] LABS: Vitamin D,25 Hydroxy 69.7 ng/mL
[2021-11-08 11:46] LABS: Anion Gap 8 (5-15); BUN 6 mg/dL (7-18); BUN/Creat Ratio 10.8 RATIO (10-20); Calcium,Total 9.7 mg/dL (8.5-10.1); Chloride 97 mmol/L (98-107); Cholesterol 188 mg/dL (200); Creatinine, Serum 0.55 mg/dL (0.55-1.02); EST Glomerular Filtration Rate 111 mL/min (>60); Est Glom Filt Rate - Afr Amer 135 mL/min (>60); Free T3 2.5 pg/mL (2.18-3.98); Glucose 129 mg/dL (74-106); High Density Lipoprotein 73 mg/dL; Potassium 3.7 mmol/L (3.5-5.1); Sodium Level 133 mmol/L (136-145); T4 Free Direct 1.26 ng/dL (0.76-1.46); Thyroid Stim Hormone (TSH) 2.06 uIU/mL (0.358-3.74); Triglycerides 77 mg/dL; Very Low Density Lipoprotein 15 mg/dL (5-40)
== END ==
PROVIDERS: PCP Family Medicine; Referring Provider Family Medicine; Visit Provider Family Medicine
DX: Z00.00 Encounter for general adult medical examination without abnormal findings (principal); E03.9 Hypothyroidism, unspecified; M81.0 Age-related osteoporosis without current pathological fracture
CPT/HCPCS: 36415; 80048; 80061; 82306; 84439; 84443; 84481

== ENCOUNTER 2021-12-07 11:54 | Outpatient (CLI) | payer MEDICARE, OTHER, SELFPAY ==
[2021-12-07 15:43] LABS: Absolute Neutrophil Count 3.2 X10^3/uL (2.0-7.7); Basophil# 0.03 X10^3/uL; Basophil% 0.4 % (0-1); Eosinophil# 0.14 X10^3/uL; Eosinophils% 1.9 % (0-5); Hematocrit 40.8 % (37-47); Hemoglobin 13.4 g/dL (12.0-15.0); Lymphocyte % 47.9 % (19-41); Mean Corp Hgb Conc 32.8 g/dL (32-36); Mean Corpuscular Volume 91.5 fL (81-99); Monocyte# 0.42 X10^3/uL; Monocyte% 5.8 % (0-10); NRBC Flagged by Analyzer 0 % (0-5); Neutrophil # 3.19 X10^3/uL (2.7-7.7); Neutrophil % 43.7 % (47-70); Platelet Count 334 K/mm3 (150-450); RBC Distribution Width CV 13.4 % (11.6-14.6); RBC Distribution Width SD 45.1 fl (35.1-43.9); Red Blood Count 4.46 M/mm3 (4.2-5.4); White Blood Count 7.3 K/mm3 (4.4-11.0)
[2021-12-07 16:02] LABS: ALB/GLOB Ratio 1.1 RATIO (0.9-2.4); AST(SGOT) 25 U/L (15-37); Alanine Aminotransfer ALT/SGPT 28 U/L (13-56); Albumin, Serum 3.8 g/dL (3.2-5.0); Alkaline Phosphatase 143 U/L (45-117); Anion Gap 6 (5-15); BUN 12 mg/dL (7-18); BUN/Creat Ratio 20.8 RATIO (10-20); Calcium,Total 9.3 mg/dL (8.5-10.1); Chloride 97 mmol/L (98-107); Creatinine, Serum 0.58 mg/dL (0.55-1.02); EST Glomerular Filtration Rate 106 mL/min (>60); Est Glom Filt Rate - Afr Amer 128 mL/min (>60); Globulin 3.4 g/dL (2.2-4.2); Glucose 142 mg/dL (74-106); Potassium 4.4 mmol/L (3.5-5.1); Protein, Total 7.2 g/dL (6.4-8.2); Sodium Level 132 mmol/L (136-145)
== END 2021-12-07 23:59 | disposition short-term general hospital (02) ==
LOC: MFPLAB 11:57
PROVIDERS: PCP Family Medicine; Referring Provider Family Medicine; Visit Provider Family Medicine
DX: R10.9 Unspecified abdominal pain (principal)
CPT/HCPCS: 36415; 80053; 85025

== ENCOUNTER 2021-12-18 14:52 | Outpatient (CLI) | payer MEDICARE, OTHER, SELFPAY ==
--- NOTE | 2021-12-18 15:14 | CT_ITS ---
EXAM: CT ABDOMEN AND PELVIS WITH INTRAVENOUS CONTRAST : 1940 CLINICAL INDICATION: ABD PAIN TECHNIQUE: Helically acquired images were obtained of the abdomen and pelvis with intravenous contrast. This CT exam was performed using one or more of the following dose reduction techniques: automated exposure control, adjustment of the mA and/or kV according to patient size, and/or use of iterative reconstruction technique. This report was created using [employer] report generation technology. CONTRAST: Oral Tamp; IV Gastrografin Tamp; 100mL Isovue-300 COMPARISON: None. FINDINGS: LOWER THORAX: Moderate size hiatal hernia. Lung bases are clear. No cardiomegaly. No significant pericardial effusion. ABDOMEN: LIVER: Unremarkable. Homogeneous. No focal mass. GALLBLADDER AND BILE DUCTS: Right upper quadrant surgical clips consistent with cholecystectomy. There is a mild, expected degree of intrahepatic and common bile duct dilation. PANCREAS: Unremarkable. No focal cystic or solid mass. SPLEEN: Unremarkable. Normal size without focal cystic or solid mass. ADRENALS: Unremarkable. No nodules. KIDNEYS AND URETERS: Unremarkable. Normal renal size and position. No hydronephrosis. STOMACH AND BOWEL: Prominent stool burden within the large bowel. No focal inflammatory change. PELVIS: APPENDIX: No evidence of acute appendicitis. BLADDER: Unremarkable. REPRODUCTIVE: Vaginal pessary in place. ABDOMEN and PELVIS: INTRAPERITONEAL SPACE: Unremarkable. No ascites or other fluid collection. No free air. BONES/JOINTS: Chronic appearing compression deformities of the T10, T12, L1 and L4 vertebral bodies. Vertebroplasty changes are present at T12 and L1. No suspicious lytic or blastic abnormality. SOFT TISSUES: Unremarkable. No discrete abdominal or pelvic wall hernia. VASCULATURE: Unremarkable. Abdominal aorta is non-dilated. LYMPH NODES: Unremarkable. No enlarged lymph nodes. CT/Abdomen/Pelvis WITH Contrast IMPRESSION: 1. Hiatal hernia. 2. Constipation. 3. Multiple chronic appearing compression fractures of the thoracic and lumbar spine. Individualized dose optimization techniques were used for this CT. at 1557 Reported and signed by: Dipak Cortez MD Electronically Signed: Dipak Cortez MD at 15:56 EST Tel , Service support ,
== END 2021-12-18 23:59 | disposition short-term general hospital (02) ==
LOC: CT 14:54
PROVIDERS: PCP Family Medicine; Referring Provider Family Medicine; Visit Provider Family Medicine
DX: R10.9 Unspecified abdominal pain (principal)
CPT/HCPCS: 74177; Q9967

== ENCOUNTER 2022-05-19 18:05 | Observation (INO) | payer MEDICARE, OTHER, SELFPAY ==
[2022-05-19 18:07] VITALS: BP 163/94; PULSE 104; RESP 12; TEMP 36.6; O2SAT 95; BMI 32.1
[2022-05-19 18:08] VITALS: BP 163/94; PULSE 104; RESP 12; TEMP 36.6; O2SAT 95
--- NOTE | 2022-05-19 18:21 | CT_ITS ---
EXAM: CT ABDOMEN AND PELVIS WITH INTRAVENOUS CONTRAST CLINICAL INDICATION: abd pain, distension, constipation TECHNIQUE: Helically acquired images were obtained of the abdomen and pelvis with intravenous contrast. This CT exam was performed using one or more of the following dose reduction techniques: automated exposure control, adjustment of the mA and/or kV according to patient size, and/or use of iterative reconstruction technique. This report was created using [employer] report generation technology. CONTRAST: IV 100mL Isovue-370 COMPARISON: 12/18/2021. FINDINGS: LOWER THORAX: Small hiatal hernia. Lung bases are clear. No cardiomegaly. No significant pericardial effusion. ABDOMEN: LIVER: Unremarkable. Homogeneous. No focal mass. GALLBLADDER AND BILE DUCTS: Unremarkable. No calcified gallstones. No gallbladder distention or wall edema. No intra- or extrahepatic biliary ductal dilation. PANCREAS: Unremarkable. No focal cystic or solid mass. SPLEEN: Unremarkable. Normal size without focal cystic or solid mass. ADRENALS: Unremarkable. No nodules. KIDNEYS AND URETERS: Unremarkable. Normal renal size and position. No hydronephrosis. STOMACH AND BOWEL: Large stool burden. No stomach or bowel distention. No focal inflammatory change. PELVIS: APPENDIX: No evidence of acute appendicitis. BLADDER: Unremarkable. REPRODUCTIVE: Pessary in place. ABDOMEN and PELVIS: INTRAPERITONEAL SPACE: Unremarkable. No ascites or other fluid collection. No free air. BONES/JOINTS: Mild lumbar levoscoliosis. Chronic T10, T12, L1, and L4 compression fractures with prior vertebroplasty at T12 and L4. There is extrusion of the L4 vertebroplasty material posterolateral to the IVC. SOFT TISSUES: Unremarkable. No discrete abdominal or pelvic wall hernia. VASCULATURE: Unremarkable. Abdominal aorta is normal in caliber. LYMPH NODES: Unremarkable. No enlarged lymph nodes. CT/Abdomen/Pelvis W IV Cont ONLY IMPRESSION: 1. Large stool burden consistent with constipation. 2. Small hiatal hernia. 3. Chronic vertebral compression fractures. Electronically Signed: Maia Woody MD at 20:50 EDT Reading Location ID and State: [id number] / Tel , Service support ,
[2022-05-19 18:40] LABS: Absolute Lymphocyte Count 3.96 X10^3/uL (0.83-4.51); Absolute Neutrophil Count 3.4 X10^3/uL (2.0-7.7); Basophil# 0.04 X10^3/uL; Basophil% 0.5 % (0-1); Eosinophil# 0.14 X10^3/uL; Eosinophils% 1.7 % (0-5); Hematocrit 39.9 % (37-47); Hemoglobin 13.6 g/dL (12.0-15.0); Lymphocyte # 3.96 X10^3/ul (0.83-4.51); Mean Corp Hgb Conc 34.1 g/dL (32-36); Mean Corpuscular Hgb 30.2 pg (27.0-32.0); Mean Corpuscular Volume 88.7 fL (81-99); Monocyte# 0.55 X10^3/uL; Monocyte% 6.8 % (0-10); NRBC Flagged by Analyzer 0 % (0-5); Neutrophil # 3.36 X10^3/uL (2.7-7.7); Neutrophil % 41.6 % (47-70); Platelet Count 318 K/mm3 (150-450); RBC Distribution Width CV 13.1 % (11.6-14.6); RBC Distribution Width SD 42.8 fl (35.1-43.9); White Blood Count 8.1 K/mm3 (4.4-11.0)
[2022-05-19] MEDS: 0.9% Normal Saline 1,000 ML 500 ML IV (18:43)
[2022-05-19 18:56] LABS: AST(SGOT) 28 U/L (15-37); Alanine Aminotransfer ALT/SGPT 29 U/L (13-56); Albumin, Serum 3.8 g/dL (3.2-5.0); Alkaline Phosphatase 124 U/L (45-117); Anion Gap 8 (5-15); BUN 9 mg/dL (7-18); BUN/Creat Ratio 14.5 RATIO (10-20); Calcium,Total 9.5 mg/dL (8.5-10.1); Chloride 92 mmol/L (98-107); Creatinine, Serum 0.62 mg/dL (0.55-1.02); EST Glomerular Filtration Rate 97 mL/min (>60); Est Glom Filt Rate - Afr Amer 118 mL/min (>60); Estimated Creatinine Clearance 31.54 ml/min; Globulin 3.8 g/dL (2.2-4.2); Glucose 122 mg/dL (74-106); Lipase 174 U/L (73-393); Protein, Total 7.6 g/dL (6.4-8.2); Sodium Level 126 mmol/L (136-145)
[2022-05-19 19:51] LABS: Bacteria 0 SEEN /hpf (None Seen); Mucous, Urine 0 SEEN /hpf (<or=2+); Red Blood Cells-Urine 0 SEEN /hpf (0-5); Squamous Epithelial Cells - UA 0 SEEN /hpf (5-10)
[2022-05-19 19:53] LABS: Color, Urine Yellow (Yellow); Glucose, Dipstick Normal (Normal); Ketone-Dipstick 5 mg/dl (Negative); Leukocyte Esterase-Dipstick Negative /ul (Negative); Nitrite-Dipstick Negative (Negative); Occult Blood-Urine Negative /ul (Negative); Protein-Dipstick Negative (Negative); Urine Bilirubin Dipstick Negative (Negative); Urine Clarity Clear (Clear); Urine Urobilinogen Normal (Normal); Urine pH 6.5 (5.0 - 8.0)
[2022-05-19] MEDS: Ondansetron 4 MG/2 ML Vial IV (19:59)
[2022-05-19] MEDS: Morphine 4 MG/ML Syringe IV (19:59)
[2022-05-19 20:05] LABS: White Blood Cells 0-5 SEEN /hpf (0-5)
--- NOTE | 2022-05-19 21:26 | EX.ED.DYSGE1 ---
HPI History of Present Illness Chief Complaint: Complaint Informant: patient and family Onset/Context/Timing Onset: Days Current Severity: Moderate Associated Symptoms Associated Symptoms: Foul and dark urine, constipation, not able to eat or drink much Narrative Narrative: Symptoms started about 5 days ago. They came on gradually. Patient has tried multiple modalities for her constipation, but nothing seems to help. She is not eating or drinking much. For example, today she only had a few bites of chili. She also has dark and foul-smelling urine. She was concerned for UTI. She is also concerned because she had constipation in the past with spinal compression fractures. No recent trauma. No new back pain. [facility] Medical History Arthritis Atherosclerotic heart disease of [place] coronary artery without angina pectoris Bronchitis Chest pain, unspecified Constipation Essential hypertension GERD (gastroesophageal reflux disease) Macular degeneration Maxillary sinusitis Pure hypercholesterolemia Thyroid disease Home Medications calcium carbonate 500 mg-vitamin D3 5 mcg (200 unit) tablet 2 tab PO QDAY 01/01/18 [History Last Taken Unknown] levothyroxine 50 mcg tablet 50 mcg PO QDAY 90 days #90 tabs 01/01/18 [History Last Taken Unknown] omega-3 fatty acids 1,000 mg capsule (Fish Oil Concentrate) 1,000 mg PO QDAY 03/19/18 [History Last Taken Unknown] acetaminophen 325 mg tablet (Tylenol) 325 mg PO Q6H PRN Pain Or Fever 07/29/18 [History Last Taken Unknown] ketotifen fumarate 0.025 % (0.035 %) eye drops (Zaditor) 1 drp ophthalmic (eye) BID 07/29/18 [History Last Taken Unknown] aloe vera 25 mg capsule 25 mg PO DAILY PRN supplement 06/08/21 [History Last Taken Unknown] multivitamin with min no.36-iron,carbonyl-FA 16 mg iron-0.38 mg tablet (Geritol Complete) 1 tab PO DAILY 06/08/21 [History Last Taken Unknown] amlodipine 5 mg tablet 5 mg PO QDAY #90 tabs 02/25/22 [Rx Last Taken Unknown] aspirin 81 mg tablet,delayed release (Adult Aspirin Regimen) 81 mg PO QDAY PRN pain med 03/01/22 [History Last Taken Unknown] vit C 250 mg-vit E 90 mg-zinc 40 mg-copper 1 [id number] capsule (PreserVision AREDS-2) 1 tab PO BID 03/01/22 [History Last Taken Unknown] losartan 25 mg tablet 50 mg PO DAILY #180 tabs 05/13/22 [Rx Last Taken Unknown] Allergy/AdvReac Type Severity Reaction Status Date / Time omeprazole Allergy Intermediate Itching Verified 05/19/22 18:06 Penicillins Allergy Unknown Verified 05/19/22 18:06 lisinopril AdvReac Intermediate Cough Verified 05/19/22 18:06 Family History Mother CAD (coronary artery disease) Father CAD (coronary artery disease) Brother Heart disease Myocardial infarction Other Cancer Dementia Surgical History History of cataract surgery History of left heart catheterization History of Alexei fundoplication Tubal ligation status Social History Smoking Status: Never smoker alcohol intake: never substance use type: does not use caffeine: Yes what type of physical activity do you participate in: other details: Be Here video frequency: daily seatbelt use: always do you feel safe at home: Yes additional social history: ROS ROS ED Constitutional Constitutional ED: Denies chills or fever(s) Eyes Eyes: Denies blurry vision ENT ENT ED: Denies ear pain Cardiovascular Cardiovascular: Denies chest pain Respiratory/Chest Respiratory/Chest: Denies cough Gastrointestinal Gastrointestinal: Reports constipation; Denies abdominal pain Genitourinary Genitourinary ED: Denies dysuria or urinary frequency Musculoskeletal Musculoskeletal: Denies arthralgias Integumentary Denies abscess Neurologic Neurologic: Denies headache(s) Psychiatric Psychiatric: Denies anxiety Endocrine Endocrinology: Denies cold intolerance Allergic/Immunologic Allergic/Immunologic ED: Denies mouth swelling EXAM Physical Exam Const Vital Signs: 05/19/22 18:07 05/19/22 18:08 Temperature 97.8 F 97.8 F Temperature Source Temporal Oral Pulse Rate 104 H 104 H Respiratory Rate 12 12 Blood Pressure 163/94 H 163/94 H Blood Pressure Mean 117 117 Pulse Ox 95 95 Oxygen Delivery Method Room Air Room Air Positive well nourished and well developed General Appearance ED: well developed Eyes EOMs intact bilaterally Resp normal respiratory effort and clear to auscultation bilaterally Cardio regular rate and regular rhythm GI normal to inspection, nondistended, normoactive bowel sounds Neuro oriented x3 and CN's II-XII intact bilaterally Psych mental status grossly normal Skin no rashes or lesions noted MDM MDM MDM Narrative Medical decision making narrative: Patient CBC was unremarkable. Metabolic panel showed worsening of her chronic hyponatremia. Kidney function is normal. Liver function and lipase are unremarkable. Urinalysis is unremarkable. Patient was treated here with fluids. CT showed small hiatal hernia, constipation, chronic compression fractures. Patient has constipation which is not responding to medications. I believe this is worsened by her hyponatremia. She is frail and not eating or drinking much. I believe she would benefit from hospitalization. I contacted the hospitalist who will provide further care. Impression #1 constipation Impression #2 hyponatremia Lab Data Attestation: I reviewed the patient's lab results. Labs: Laboratory Results - last 24 hr 05/19/22 05/19/22 05/19/22 18:33 18:33 19:46 WBC 8.1 RBC 4.50 Hgb 13.6 Hct 39.9 MCV 88.7 MCH 30.2 MCHC 34.1 RDW Std Deviation 42.8 RDW Coeff of Teresa 13.1 Plt Count 318 MPV 8.0 Immature Gran % (Auto) 0.400 Neut % (Auto) 41.6 L Lymph % (Auto) 49.0 H [place] % (Auto) 6.8 Eos % (Auto) 1.7 Baso % (Auto) 0.5 Absolute Neuts (auto) 3.4 Absolute Lymphs (auto) 3.96 Nucleated RBC % 0 Sodium 126 L Potassium 4.0 Chloride 92 L Carbon Dioxide 26.0 Anion Gap 8 BUN 9 Creatinine 0.62 Estim Creat Clear Calc 31.54 Est GFR (MDRD) Af Amer 118 Est GFR (MDRD) Non-Af 97 BUN/Creatinine Ratio 14.5 Glucose 122 H Calcium 9.5 Total Bilirubin 0.40 AST 28 ALT 29 Alkaline Phosphatase 124 H Total Protein 7.6 Albumin 3.8 Globulin 3.8 Albumin/Globulin Ratio 1.0 Lipase 174 Urine Color Yellow Urine Clarity Clear Urine pH 6.5 Ur Specific [place] 1.010 Urine Protein Negative Urine Glucose (UA) Normal Urine Ketones 5 H Urine Occult Blood Negative Urine Nitrite Negative Urine Bilirubin Negative Urine Urobilinogen Normal Ur Leukocyte Esterase Negative Urine RBC 0 SEEN Urine WBC 0-5 SEEN Ur Squamous Epith Cells 0 SEEN Urine Bacteria 0 SEEN Urine Mucus 0 SEEN Radiography Diagnostic Testing: Clinical Impression(s) from Imaging Studies Abdomen/Pelvis CT 05/19/22 18:21 IMPRESSION: 1. Large stool burden consistent with constipation. 2. Small hiatal hernia. 3. Chronic vertebral compression fractures. Electronically Signed: Maia Woody MD at 20:50 EDT Reading Location ID and State: [id number] / Tel , Service support , Discharge Plan Triage Chief Complaint: Complaint ED Provider: Jona Toney Dx/Rx/DC Orders Prescriptions: No Action levothyroxine 50 mcg tablet 50 mcg PO QDAY 90 Days Qty: 90 Label Comments: calcium carbonate-vitamin D3 500 mg(1,250mg) -200 unit tablet 2 tab PO QDAY aspirin [Adult Aspirin Regimen] 81 mg tablet,delayed release (DR/EC) 81 mg PO QDAY PRN (Reason: pain med) omega-3 fatty acids [Fish Oil Concentrate] 1,000 mg capsule 1,000 mg PO QDAY ketotifen fumarate [Zaditor] 0.025 % (0.035 %) drops 1 drp OPHTHALMIC BID acetaminophen [Tylenol] 325 mg tablet 325 mg PO Q6H PRN (Reason: Pain Or Fever) Geritol Complete 16 mg iron- 0.38 mg tablet 1 tab PO DAILY aloe vera 25 mg capsule 25 mg PO DAILY PRN (Reason: supplement) PreserVision AREDS-2 250-90-40-1 mg capsule 1 tab PO BID amlodipine 5 mg tablet 5 mg PO QDAY Qty: 90 3RF losartan 25 mg tablet 50 mg PO DAILY Qty: 180 3RF Primary Care Provider: Amos King Referrals: Amos King MD [Primary Care Provider] -
--- NOTE | 2022-05-19 21:41 | PCM.HP.STD ---
HPI - General General Date of Admission: 05/19/22 Date of Service: 05/19/22 Chief Complaint: Constipation HPI Narrative JOLIE LEMOS, is a 82 F who presents with several day history of constipation. Has tried numerous agents but without relief. Patient had a CAT scan in the emergency room that showed large stool burden consistent with constipation and a small hiatal hernia. Patient noted to have a sodium 126. Patient has not been eating or drinking much and has had dark urine. Patient did receive IV fluids in the emergency room. Hospitalist service was contacted for admission. [facility] Medical History Arthritis Atherosclerotic heart disease of [place] coronary artery without angina pectoris Bronchitis Chest pain, unspecified Constipation Essential hypertension GERD (gastroesophageal reflux disease) Macular degeneration Maxillary sinusitis Pure hypercholesterolemia Thyroid disease Home Medications calcium carbonate 500 mg-vitamin D3 5 mcg (200 unit) tablet 2 tab PO QDAY 01/01/18 [History Last Taken Unknown] levothyroxine 50 mcg tablet 50 mcg PO QDAY 90 days #90 tabs 01/01/18 [History Last Taken Unknown] omega-3 fatty acids 1,000 mg capsule (Fish Oil Concentrate) 1,000 mg PO QDAY 03/19/18 [History Last Taken Unknown] acetaminophen 325 mg tablet (Tylenol) 325 mg PO Q6H PRN Pain Or Fever 07/29/18 [History Last Taken Unknown] ketotifen fumarate 0.025 % (0.035 %) eye drops (Zaditor) 1 drp ophthalmic (eye) BID 07/29/18 [History Last Taken Unknown] aloe vera 25 mg capsule 25 mg PO DAILY PRN supplement 06/08/21 [History Last Taken Unknown] multivitamin with min no.36-iron,carbonyl-FA 16 mg iron-0.38 mg tablet (Geritol Complete) 1 tab PO DAILY 06/08/21 [History Last Taken Unknown] amlodipine 5 mg tablet 5 mg PO QDAY #90 tabs 02/25/22 [Rx Last Taken Unknown] aspirin 81 mg tablet,delayed release (Adult Aspirin Regimen) 81 mg PO QDAY PRN pain med 03/01/22 [History Last Taken Unknown] vit C 250 mg-vit E 90 mg-zinc 40 mg-copper 1 [id number] capsule (PreserVision AREDS-2) 1 tab PO BID 03/01/22 [History Last Taken Unknown] losartan 25 mg tablet 50 mg PO DAILY #180 tabs 05/13/22 [Rx Last Taken Unknown] Allergy/AdvReac Type Severity Reaction Status Date / Time omeprazole Allergy Intermediate Itching Verified 05/19/22 18:06 Penicillins Allergy Unknown Verified 05/19/22 18:06 lisinopril AdvReac Intermediate Cough Verified 05/19/22 18:06 Family History Mother CAD (coronary artery disease) Father CAD (coronary artery disease) Brother Heart disease Myocardial infarction Other Cancer Dementia Surgical History History of cataract surgery History of left heart catheterization History of Alexei fundoplication Tubal ligation status Social History Smoking Status: Never smoker alcohol intake: never substance use type: does not use caffeine: Yes what type of physical activity do you participate in: other details: [employer] video frequency: daily seatbelt use: always do you feel safe at home: Yes additional social history: MARIEL FLOYD Narrative Does have chronic vision problems due to macular degeneration and is hard of hearing. Patient wears compression stockings on her legs and it hurts her to wear them. When she does not wear them she feels fine. She denies any lower extremity edema. No fever chills. All review of systems were negative except as mentioned above in the history of present illness and the other review of systems. Vital Signs Vital Signs Vital Signs: 05/19/22 18:07 05/19/22 18:08 Temperature 36.6 C 36.6 C Temperature Source Temporal Oral Pulse Rate 104 H 104 H Respiratory Rate 12 12 Blood Pressure 163/94 H 163/94 H Blood Pressure Mean 117 117 Pulse Ox 95 95 Oxygen Delivery Method Room Air Room Air Weight Weight: 47.7 kg Body Mass Index (BMI) 32.1 Physical Exam Const alert and no apparent distress Resp normal respiratory effort, no retractions, no use of accessory muscles and clear to auscultation bilaterally Cardio regular rate, regular rhythm, S1 normal heart sound and S2 normal heart sound GI GI Narrative: Distended. Nontender. No bruits Auscultation: hyperactive bowel sounds Extremity normal to inspection and full ROM Results Lab / Micro Data Attestation: I reviewed the patient's lab results. Result Diagrams: 05/19/22 18:33 05/19/22 18:33 Labs: Laboratory Results - last 24 hr 05/19/22 18:33: WBC 8.1, RBC 4.50, Hgb 13.6, Hct 39.9, MCV 88.7, MCH 30.2, MCHC 34.1, RDW Std Deviation 42.8, RDW Coeff of Teresa 13.1, Plt Count 318, MPV 8.0, Immature Gran % (Auto) 0.400, Neut % (Auto) 41.6 L, Lymph % (Auto) 49.0 H, [place] % (Auto) 6.8, Eos % (Auto) 1.7, Baso % (Auto) 0.5, Absolute Neuts (auto) 3.4, Absolute Lymphs (auto) 3.96, Nucleated RBC % 0 05/19/22 18:33: Sodium 126 L, Potassium 4.0, Chloride 92 L, Carbon Dioxide 26.0, Anion Gap 8, BUN 9, Creatinine 0.62, Estim Creat Clear Calc 31.54, Est GFR (MDRD) Af Amer 118, Est GFR (MDRD) Non-Af 97, BUN/Creatinine Ratio 14.5, Glucose 122 H, Calcium 9.5, Total Bilirubin 0.40, AST 28, ALT 29, Alkaline Phosphatase 124 H, Total Protein 7.6, Albumin 3.8, Globulin 3.8, Albumin/Globulin Ratio 1.0, Lipase 174 05/19/22 19:46: Urine Color Yellow, Urine Clarity Clear, Urine pH 6.5, Ur Specific [place] 1.010, Urine Protein Negative, Urine Glucose (UA) Normal, Urine Ketones 5 H, Urine Occult Blood Negative, Urine Nitrite Negative, Urine Bilirubin Negative, Urine Urobilinogen Normal, Ur Leukocyte Esterase Negative, Urine RBC 0 SEEN, Urine WBC 0-5 SEEN, Ur Squamous Epith Cells 0 SEEN, Urine Bacteria 0 SEEN, Urine Mucus 0 SEEN Radiology Impression Abdomen/Pelvis CT 05/19/22 18:21 IMPRESSION: 1. Large stool burden consistent with constipation. 2. Small hiatal hernia. 3. Chronic vertebral compression fractures. Electronically Signed: Maia Woody MD at 20:50 EDT Reading Location ID and State: [id number] / Tel , Service support , Assessment & Plan Assessment/Plan (1) Constipation: PLAN: Patient's CAT scan shows large stool burden. This is despite numerous agents she is taking at home. We will give her 150 cc of magnesium citrate here. (2) Hyponatremia: PLAN: This appears to be chronic though slightly worse possibly related with dehydration. May be component of SIADH but given that she is relatively asymptomatic from that. Would not pursue any aggressive work-up at this point time unless her sodium continues to drop. PLAN: Plan VTE prophylaxis: Not indicated given observation status COVID-19 vaccination status: Patient has been vaccinated and boosted. CODE STATUS: Addressed with patient. Patient was full CODE STATUS. Family asked about the compression stockings. They are concerned because it causes the patient pain whenever she wears them. Patient has no appreciable lower extremity edema at present. I have advised, since it caused her so much discomfort to wear them, to not wear them moving forward. She may follow-up with her primary care provider to see if there may be something where there is less compression that would be more commenting to her. But at this point time I feel that it causes her too much discomfort for her to continue wearing at this point time Charges/Coding Visit Charges OBSV E&M: 10650 Initial observation care L2
[2022-05-19 22:00] VITALS: BP 131/80; PULSE 96; RESP 16; O2SAT 94
[2022-05-19 22:30] VITALS: BP 131/80; PULSE 96; RESP 16; TEMP 37.1; O2SAT 94
[2022-05-19 22:46] VITALS: BMI 31.1
[2022-05-19 22:52] VITALS: BP 143/63; PULSE 95; RESP 18; TEMP 36.7; O2SAT 92
[2022-05-19] MEDS: 0.9% Saline Lock 10 ML Syringe IV (23:18)
[2022-05-19] MEDS: 0.9% Normal Saline 1,000 ML 150 ML IV (23:18)
[2022-05-19] MEDS: Magnesium Citrate 300 ML 150 ML PO (23:19)
[2022-05-20 05:00] VITALS: BP 131/63; PULSE 84; RESP 16; TEMP 36.3; O2SAT 95
[2022-05-20 05:08] LABS: Anion Gap 6 (5-15); BUN 5 mg/dL (7-18); BUN/Creat Ratio 12.9 RATIO (10-20); Calcium,Total 8.7 mg/dL (8.5-10.1); Chloride 105 mmol/L (98-107); Creatinine, Serum 0.39 mg/dL (0.55-1.02); EST Glomerular Filtration Rate 167 mL/min (>60); Est Glom Filt Rate - Afr Amer 202 mL/min (>60); Estimated Creatinine Clearance 30.65 ml/min; Glucose 84 mg/dL (74-106); Potassium 3.9 mmol/L (3.5-5.1); Sodium Level 136 mmol/L (136-145)
[2022-05-20] MEDS: Levothyroxine 50 MCG Tablet PO (05:28)
[2022-05-20] MEDS: amLODIPine 5 MG Tablet PO (08:56)
[2022-05-20] MEDS: Calcium Carb/Vitamin D 1 TABLET Tablet 2 TABLET PO (08:56)
[2022-05-20] MEDS: Losartan Potassium 50 MG Tablet PO (08:56)
[2022-05-20] MEDS: Aspirin E.C. 81 MG Tablet PO (08:56)
[2022-05-20] MEDS: Lactulose 20 GM/30 ML UDC PO ×3 (09:07→21:12)
[2022-05-20 11:00] VITALS: BP 142/78; PULSE 89; RESP 15; TEMP 36.6; O2SAT 95
--- NOTE | 2022-05-20 15:19 | CASEMGMT ---
LANEY WEIR in to discuss ABDI form with patient. LANEY WEIR explained ABDI form, patient voiced understanding. 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 Pt signed form and filed in chart. Pt provided with a copy of signed ABDI form. Patient statese she is independent at home. States she does not use an assistive device and knows where everything is spatially. Pt denies any homegoing needs at this time. Pt Patient had no further questions or concerns at this time.
--- NOTE | 2022-05-20 15:50 | CHAPLAIN ---
Type of Pastoral Visit _x__ Initial Visit ___ Follow-up Visit ___ On-call Visit ___ General Patient Visit ___ Spiritual Assessment ___ Family Conference ___ Bereavement ___ Rapid Response ___ Code Blue ___ Other (describe below) Pastoral Care Referral From _x__ Patient ___ Family ___ Nurse ___ Physician ___ Robotics Systems Engineer ___ Capping Machine Operator ___ Other (describe below) Sacrament/Intervention _x__ Active listening ___ Anointing ___ Orthodox ___ Bereavement ___ Communion ___ Jolanta exploration ___ ___ Life review _x__ Prayer ___ Reconciliation ___ Sacrament of Sick _x__ Supportive presence ___ Wedding ___ Other (describe below) Pastoral Comments family members and a friend were in room when this civil design specialist entered; within few minutes each left and pt was able to talk to civil design specialist; pt desires spiritual care and prayer support; pt identifies as person of jolanta and talks about that; pt desire is to go home and she is missing her pet
--- NOTE | 2022-05-20 17:27 | PCM.PN.HOSP ---
Subjective Subjective Denies any significant abdominal pain, no issues overnight. States that she has not pooped yet Objective Data Objective Data Vital Signs: Vital Signs Temp Pulse Resp BP Pulse Ox 97.8 F 89 15 142/78 H 95 05/20/22 11:00 05/20/22 11:00 05/20/22 11:00 05/20/22 11:00 05/20/22 11:00 Oxygen Delivery Method Room Air Weight: 102 lb 3.2 oz Body Mass Index (BMI) 31.1 Intake & Output: Intake and Output for Last 24 Hours 05/19/22 05/20/22 05/21/22 03:59 03:59 03:59 Intake Total 1000 / 1000 1480 / 1480 Balance 1000 / 1000 1480 / 1480 Lab / Micro Data Result Diagrams: 05/19/22 18:33 05/20/22 03:10 Labs: Laboratory Results - last 24 hr 05/19/22 18:33: WBC 8.1, RBC 4.50, Hgb 13.6, Hct 39.9, MCV 88.7, MCH 30.2, MCHC 34.1, RDW Std Deviation 42.8, RDW Coeff of Teresa 13.1, Plt Count 318, MPV 8.0, Immature Gran % (Auto) 0.400, Neut % (Auto) 41.6 L, Lymph % (Auto) 49.0 H, [place] % (Auto) 6.8, Eos % (Auto) 1.7, Baso % (Auto) 0.5, Absolute Neuts (auto) 3.4, Absolute Lymphs (auto) 3.96, Nucleated RBC % 0 05/19/22 18:33: Sodium 126 L, Potassium 4.0, Chloride 92 L, Carbon Dioxide 26.0, Anion Gap 8, BUN 9, Creatinine 0.62, Estim Creat Clear Calc 31.54, Est GFR (MDRD) Af Amer 118, Est GFR (MDRD) Non-Af 97, BUN/Creatinine Ratio 14.5, Glucose 122 H, Calcium 9.5, Total Bilirubin 0.40, AST 28, ALT 29, Alkaline Phosphatase 124 H, Total Protein 7.6, Albumin 3.8, Globulin 3.8, Albumin/Globulin Ratio 1.0, Lipase 174 05/19/22 19:46: Urine Color Yellow, Urine Clarity Clear, Urine pH 6.5, Ur Specific [place] 1.010, Urine Protein Negative, Urine Glucose (UA) Normal, Urine Ketones 5 H, Urine Occult Blood Negative, Urine Nitrite Negative, Urine Bilirubin Negative, Urine Urobilinogen Normal, Ur Leukocyte Esterase Negative, Urine RBC 0 SEEN, Urine WBC 0-5 SEEN, Ur Squamous Epith Cells 0 SEEN, Urine Bacteria 0 SEEN, Urine Mucus 0 SEEN 05/20/22 03:10: Sodium 136, Potassium 3.9, Chloride 105, Carbon Dioxide 25.0, Anion Gap 6, BUN 5 L, Creatinine 0.39 L, Estim Creat Clear Calc 30.65, Est GFR (MDRD) Af Amer 202, Est GFR (MDRD) Non-Af 167, BUN/Creatinine Ratio 12.9, Glucose 84, Calcium 8.7 Radiography Diagnostic Testing: Radiology Impression Abdomen/Pelvis CT 05/19/22 18:21 IMPRESSION: 1. Large stool burden consistent with constipation. 2. Small hiatal hernia. 3. Chronic vertebral compression fractures. Electronically Signed: Maia Woody MD at 20:50 EDT Reading Location ID and State: [id number] / Tel , Service support , Physical Exam Const alert, oriented x3 and no apparent distress General Appearance: cooperative HEENT normocephalic and moist oral mucous membranes Eyes PERRL, EOMs intact bilaterally and conjunctivae normal Neck supple and no JVD Resp normal respiratory effort, no retractions, no use of accessory muscles and clear to auscultation bilaterally Auscultation: Negative for crackles, rales, rhonchi or wheezes Cardio regular rate, regular rhythm, S1 normal heart sound, S2 normal heart sound and no murmurs GI soft to palpation, non-tender and non-distended; Negative for hepatosplenomegaly Extremity no clubbing, cyanosis or edema Skin no rashes or lesions noted Neuro no focal motor deficits and no sensory deficits noted Psych affect normal Appearance: appropriate Assessment & Plan Assessment/Plan (1) Hyponatremia: (2) Constipation: PLAN: Plan 1. Hyponatremia and constipation ? Hyponatremia seems to be mission, sodium has improved today to 136 and creatinine is stable ? CT scan demonstrates a large stool burden and she was given mag citrate last night to no effect ? We will continue with lactulose as well as enemas to try to encourage a bowel movement 2. HTN ? Blood pressure is stable ? We will continue with her home blood pressure medications ? Continue with aspirin 3. Hypothyroidism ? Stable ? Continue with Synthroid DVT: Ambulation Charges/Coding Visit Charges OBSV E&M: 89707 Subsequent observation care L2
[2022-05-20 17:49] VITALS: BP 127/71; PULSE 88; RESP 14; TEMP 37.1; O2SAT 93
[2022-05-20 20:10] VITALS: BP 132/65; PULSE 98; RESP 16; TEMP 37.1; O2SAT 97
[2022-05-21 02:10] VITALS: BP 125/60; PULSE 89; RESP 16; TEMP 37.2; O2SAT 95
[2022-05-21] MEDS: Acetaminophen 325 MG Tablet PO (04:18)
[2022-05-21] MEDS: Lactulose 20 GM/30 ML UDC PO (05:28)
[2022-05-21] MEDS: Levothyroxine 50 MCG Tablet PO (05:28)
[2022-05-21 07:57] VITALS: BP 141/68; PULSE 87; RESP 16; TEMP 36.8; O2SAT 97
[2022-05-21] MEDS: Calcium Carb/Vitamin D 1 TABLET Tablet 2 TABLET PO (08:01)
[2022-05-21] MEDS: Aspirin E.C. 81 MG Tablet PO (08:01)
[2022-05-21] MEDS: amLODIPine 5 MG Tablet PO (08:01)
[2022-05-21] MEDS: Losartan Potassium 50 MG Tablet PO (08:01)
--- NOTE | 2022-05-21 10:17 | DCINST_ITS ---
Discharge Instructions Diet Discharge Diet: No restrictions Activity Discharge Activity: Return to Normal Activity Dressing / Incision Call your doctor if you observe: Fever of 101 or Higher, Shortness of breath, Dizziness, Fainting spells, Swelling in the ankles, Chest pain and Increased palpitations (irregular heartbeat) Follow Up Care Test Results: Test results from this visit will be discussed in further detail at your follow- up appointment, if applicable. Discharge Plan Admission Admit Date/Time: 05/19/22 21:37 Attending Provider: Lobo Kelsey Primary Care Provider: Amos King Consulting Providers: Parminder Davis Instructions Additional Instructions / Restrictions: Follow-up with your PCP in 1 week and obtain outpatient labs to monitor your renal function and sodium levels Discharge Orders/Prescriptions Prescriptions: New sennosides-docusate sodium [Senna-S] 8.6-50 mg tablet 1 tab-cap PO QHS Qty: 30 0RF polyethylene glycol 3350 [Miralax] 17 gram/dose powder 17 g PO BID Qty: 238 0RF Continued levothyroxine 50 mcg tablet 50 mcg PO QDAY 90 Days Qty: 90 Label Comments: calcium carbonate-vitamin D3 500 mg(1,250mg) -200 unit tablet 2 tab PO QDAY aspirin [Adult Aspirin Regimen] 81 mg tablet,delayed release (DR/EC) 81 mg PO QDAY omega-3 fatty acids [Fish Oil Concentrate] 1,000 mg capsule 1,000 mg PO QDAY ketotifen fumarate [Zaditor] 0.025 % (0.035 %) drops 1 drp OPHTHALMIC BID acetaminophen [Tylenol] 325 mg tablet 325 mg PO Q6H PRN (Reason: Pain Or Fever) Geritol Complete 16 mg iron- 0.38 mg tablet 1 tab PO DAILY aloe vera 25 mg capsule 25 mg PO DAILY PRN (Reason: supplement) PreserVision AREDS-2 250-90-40-1 mg capsule 1 tab PO BID amlodipine 5 mg tablet 5 mg PO QDAY Qty: 90 3RF losartan 25 mg tablet 50 mg PO DAILY Qty: 180 3RF Referrals / Follow Up: Amos King MD [Primary Care Provider] - Within 1 Week Disposition Disposition (needs filled in before D/C Order can be placed): Home, Self Care
--- NOTE | 2022-05-21 10:21 | DS.PCM_ITS ---
Providers Date of Admission: 05/19/22 Primary Care Physician: Dr. Amos King MD Reason For Visit: HYPONATREMIA, CONSTIPATION Diagnosis Discharge Diagnosis (1) Hyponatremia: Status: Acute Code(s): E87.1 - Hypo-osmolality and hyponatremia (2) Constipation: Status: Acute Code(s): K59.00 - Constipation, unspecified Medications at Discharge Home Medications calcium carbonate 500 mg-vitamin D3 5 mcg (200 unit) tablet 2 tab PO QDAY supplement 01/01/18 levothyroxine 50 mcg tablet 50 mcg PO QDAY thyroid 90 days #90 tabs 01/01/18 omega-3 fatty acids 1,000 mg capsule (Fish Oil Concentrate) 1,000 mg PO QDAY supplement 03/19/18 acetaminophen 325 mg tablet (Tylenol) 325 mg PO Q6H PRN Pain Or Fever 07/29/18 ketotifen fumarate 0.025 % (0.035 %) eye drops (Zaditor) 1 drp ophthalmic (eye) BID macular degeneration 07/29/18 aloe vera 25 mg capsule 25 mg PO DAILY PRN supplement 06/08/21 multivitamin with min no.36-iron,carbonyl-FA 16 mg iron-0.38 mg tablet (Geritol Complete) 1 tab PO DAILY supplement 06/08/21 amlodipine 5 mg tablet 5 mg PO QDAY #90 tabs 02/25/22 aspirin 81 mg tablet,delayed release (Adult Aspirin Regimen) 81 mg PO QDAY heart health 03/01/22 vit C 250 mg-vit E 90 mg-zinc 40 mg-copper 1 at-owwbzg-jzcnle capsule (PreserVision AREDS-2) 1 tab PO BID eye health 03/01/22 losartan 25 mg tablet 50 mg PO DAILY #180 tabs 05/13/22 polyethylene glycol 3350 17 gram/dose oral powder (Miralax) 17 g PO BID #238 grams 05/21/22 sennosides 8.6 mg-docusate sodium 50 mg tablet (Senna-S) 1 tab-cap PO QHS #30 tabs 05/21/22 Hospital Course Operations None Procedures None Summary of Care Provided Minutes Spent on Discharge: 35 Hospital Course: Per HPI: JOLIE LEMOS, is a 82 F who presents with several day history of constip ation.? Has tried numerous agents but without relief.? Patient had a CAT scan in the emergency room that showed large stool burden consistent with constipation and a small hiatal hernia.? Patient noted to have a sodium 126.? Patient has not been eating or drinking much and has had dark urine.? Patient did receive IV fluids in the emergency room.? Hospitalist service was contacted for admission. Hospital Course: 1. Hyponatremia and constipation?82-year-old female was brought into the hospital secondary to not eating and drinking very well and constipation for several days. She was found to be hyponatremic which resolved with IV fluids. CT scan of her abdomen pelvis did demonstrate a large burden of stool and so she was started on aggressive management. Today she says that she feels better, she denies any abdominal pain she denies any nausea or vomiting. She did have a small hard bowel movement yesterday but states that she wants to go home today. I discussed with her that it might be best to stay in the hospital for further monitoring and continued medications however she states that she wants to go home, she is eating fine and misses her dog. We will plan on discharge today with meqd-[id number]-[id number] medications to help stool. I do recommend that she follow-up with her PCP in 3 to 5 days to obtain lab work to make sure that her renal function her sodium are staying stable. I discussed with her the plan for discharge today she expressed understanding of the risk and benefits of going home and wants to go home today. 2. Hypertension, hypothyroidism are all chronic medical conditions which complicate her care at her home occasions were continued where appropriate Physical Exam Narrative Const alert, oriented x3 and no apparent distress General Appearance: cooperative HEENT normocephalic and moist oral mucous membranes Eyes PERRL, EOMs intact bilaterally and conjunctivae normal Neck supple and no JVD Resp normal respiratory effort, no retractions, no use of accessory muscles and clear to auscultation bilaterally Auscultation: Negative for crackles, rales, rhonchi or wheezes Cardio regular rate, regular rhythm, S1 normal heart sound, S2 normal heart sound and no murmurs GI soft to palpation, non-tender and non-distended; Negative for hepatosplenomegaly Extremity no clubbing, cyanosis or edema Skin no rashes or lesions noted Neuro no focal motor deficits and no sensory deficits noted Psych affect normal Appearance: appropriate Weight / BMI Weight Weight: 102 lb 3.2 oz Body Mass Index (BMI) 31.1 ABG / Lab / Microbiology Data Result Diagrams: 05/19/22 18:33 05/20/22 03:10 D/C Instructions Discharge Diet: No restrictions Call your doctor if you observe: Fever of 101 or Higher, Shortness of breath, Dizziness, Fainting spells, Swelling in the ankles, Chest pain and Increased palpitations (irregular heartbeat) Meaningful Use Info Meaningful Use Diagnoses (Choose all that apply): None applicable Discharge Plan Admission Admit Date/Time: 05/19/22 21:37 Attending Provider: Lobo Kelsey Primary Care Provider: Amos King Consulting Providers: Parminder Davis Instructions Additional Instructions / Restrictions: Follow-up with your PCP in 1 week and obtain outpatient labs to monitor your renal function and sodium levels Discharge Orders/Prescriptions Prescriptions: New sennosides-docusate sodium [Senna-S] 8.6-50 mg tablet 1 tab-cap PO QHS Qty: 30 0RF polyethylene glycol 3350 [Miralax] 17 gram/dose powder 17 g PO BID Qty: 238 0RF Continued levothyroxine 50 mcg tablet 50 mcg PO QDAY 90 Days Qty: 90 Label Comments: calcium carbonate-vitamin D3 500 mg(1,250mg) -200 unit tablet 2 tab PO QDAY aspirin [Adult Aspirin Regimen] 81 mg tablet,delayed release (DR/EC) 81 mg PO QDAY omega-3 fatty acids [Fish Oil Concentrate] 1,000 mg capsule 1,000 mg PO QDAY ketotifen fumarate [Zaditor] 0.025 % (0.035 %) drops 1 drp OPHTHALMIC BID acetaminophen [Tylenol] 325 mg tablet 325 mg PO Q6H PRN (Reason: Pain Or Fever) Geritol Complete 16 mg iron- 0.38 mg tablet 1 tab PO DAILY aloe vera 25 mg capsule 25 mg PO DAILY PRN (Reason: supplement) PreserVision AREDS-2 250-90-40-1 mg capsule 1 tab PO BID amlodipine 5 mg tablet 5 mg PO QDAY Qty: 90 3RF losartan 25 mg tablet 50 mg PO DAILY Qty: 180 3RF Referrals / Follow Up: Amos King MD [Primary Care Provider] - Within 1 Week Disposition Disposition (needs filled in before D/C Order can be placed): Home, Self Care Charges/Coding Visit Charges OBSV E&M: 31770 Observation care discharge
[2022-05-21 14:00] VITALS: BP 131/66; PULSE 84; RESP 16; TEMP 36.6; O2SAT 98
[2022-05-21 18:51] VITALS: BP 131/75; PULSE 99; RESP 18; TEMP 37.2; O2SAT 100
== END 2022-05-21 19:23 | disposition home or self-care (01) ==
LOC: ED 21:19 → MS3 21:42
PROVIDERS: Emergency Provider Emergency Medicine; PCP Family Medicine; Visit Provider Family Medicine
DX: E87.1 Hypo-osmolality and hyponatremia (principal); M48.50XA Collapsed vertebra, not elsewhere classified, site unspecified, initial encounter for fracture; K59.00 Constipation, unspecified; K44.9 Diaphragmatic hernia without obstruction or gangrene; E78.00 Pure hypercholesterolemia, unspecified; E03.9 Hypothyroidism, unspecified; I10 Essential (primary) hypertension; I25.10 Atherosclerotic heart disease of native coronary artery without angina pectoris; Z79.899 Other long term (current) drug therapy; Z79.890 Hormone replacement therapy; Z79.82 Long term (current) use of aspirin; M19.90 Unspecified osteoarthritis, unspecified site; K21.9 Gastro-esophageal reflux disease without esophagitis
CPT/HCPCS: 36415; 74177; 80048; 80053; 81001; 83690; 85025; 96361; 96374; 96375; 99218; 99283; J7030; J7040; Q9967; A4216; G0378; J2405

== ENCOUNTER → 2022-05-30 | Outpatient (CLI) | payer MEDICARE, OTHER, SELFPAY ==
--- NOTE | 2022-05-30 11:31 | RAD_ITS ---
STUDY: X-RAY - THORACIC SPINE REASON FOR EXAM: Female, 82 years old. BACK PAIN TECHNIQUE: 2 view(s) of the thoracic spine were obtained. COMPARISON: CT abdomen and pelvis 05/19/2022.. Chest x-ray PA and lateral 05/11/2018. FINDINGS: There is an increase in the normal thoracic kyphosis, mild activity progresses previous examination with multilevel compression injuries off the lower thoracic spine, new since previous examination with interval vertebroplasty along the lower thoracic spine and at the L4 vertebral body. Compression injuries at the level off T9, T10, T11, L1. In comparison to CT abdomen pelvis sagittal reformation 05/19/2022, loss of vertebral body height at the level off T11 appears increased. Mild dextroscoliosis of the thoracic, levoscoliosis of the upper lumbar spine. There is demineralization of the thoracic spine. Normal disc space heights. Small stable hiatal hernia. RAD/Thoracic Spine 2 Views IMPRESSION: Kyphosis with multilevel compression injuries and vertebroplasty at the level of T12. Probable increased compression injury involving T11 vertebral body since previous CT abdomen pelvis. Severe diffuse osteoporosis, mild scoliosis and degenerative changes. Electronically Signed: Krista Kaplan MD at 5:10 EDT Reading Location ID and State: , Service support ,
[2022-05-30 15:37] LABS: Anion Gap 11 (5-15); BUN 10 mg/dL (7-18); BUN/Creat Ratio 16.9 RATIO (10-20); Calcium,Total 10.1 mg/dL (8.5-10.1); Chloride 93 mmol/L (98-107); Creatinine, Serum 0.59 mg/dL (0.55-1.02); EST Glomerular Filtration Rate 103 mL/min (>60); Est Glom Filt Rate - Afr Amer 124 mL/min (>60); Glucose 124 mg/dL (74-106); Potassium 4.2 mmol/L (3.5-5.1); Sodium Level 131 mmol/L (136-145); Thyroid Stim Hormone (TSH) 1.88 uIU/mL (0.358-3.74)
== END | disposition home or self-care (01) ==
LOC: MTLAB 11:29
PROVIDERS: PCP Family Medicine; Referring Provider Family Medicine; Visit Provider Family Medicine
DX: K44.9 Diaphragmatic hernia without obstruction or gangrene (principal); M41.9 Scoliosis, unspecified; M81.0 Age-related osteoporosis without current pathological fracture; E03.9 Hypothyroidism, unspecified; E87.1 Hypo-osmolality and hyponatremia; M54.9 Dorsalgia, unspecified
CPT/HCPCS: 36415; 72070; 80048; 84443

== ENCOUNTER 2022-07-03 10:45 | Emergency (ER) | payer MEDICARE, OTHER, SELFPAY ==
[2022-07-03 10:46] VITALS: BP 159/90; PULSE 121; RESP 17; TEMP 36.8; O2SAT 97; BMI 21.9
--- NOTE | 2022-07-03 11:04 | MRI_ITS ---
STUDY: MRI THORACIC SPINE WITHOUT CONTRAST REASON FOR EXAM: Female, 82 years old. back pain --KYPHOPLASTY 06/06/22 TECHNIQUE: Standardized fat and water weighted pulse sequences were obtained in the sagittal and axial planes. COMPARISON: 05/19/2022. FINDINGS: Kyphosis of the columns of these thoracic spine visualized with apex along the posterior aspect of the T11 vertebral body. Acute compression deformity of the T11 vertebral body is visualized that demonstrates progression in comparison to the prior study, a fracture plane is visualized horizontally across the upper half of the vertebral body marrow seen on sagittal series 5 image 9. Suggestion of disruption of the posterior cortex is visualized with retropulsion of the fracture fragments most prominent along the right paracentral space. Fracture fragments visualized abutting the spinal canal at this level but no evidence of cord compression is seen. Wedge compression deformity of the T10 vertebral vertebral body demonstrates no significant change in comparison to the prior study. Wedge compression deformity of the T12 vertebral body with bone cement seen demonstrates no change in comparison to the prior study. Schmorl''s node involving the inferior endplate of the L1 vertebral body demonstrates no change. No abnormal signal intensity visualized within the thoracic cord. MRI/Spine Thoracic (Routine) IMPRESSION: Acute fracture of the T11 vertebral body. Disruption of the posterior cortex with subtle retropulsion of fracture fragments in the spinal canal. Chronic fractures of the T10 and T12 and L1 vertebral bodies demonstrate no change. Electronically Signed: Bryan Aldana MD at 13:22 EDT ,
--- NOTE | 2022-07-03 11:06 | EDS_ITS ---
HPI History of Present Illness Chief Complaint: Back Narrative Narrative: Patient presents with thoracic back pain. 2 weeks ago or so she had an injection done by pain management, Dr. Langley, her pain was mostly under control with just gabw-lav-[id number] Tylenol but today her pain got much worse. She is denying any kind of fevers although she tells me she felt hot earlier today. She has no urinary symptoms, she has no urinary incontinence or urinary retention symptoms. No bowel incontinence. No saddle anesthesia. She is able to ambulate but with significant back pain. [facility] Medical History Arthritis Atherosclerotic heart disease of [place] coronary artery without angina pectoris Bronchitis Chest pain, unspecified Constipation Essential hypertension GERD (gastroesophageal reflux disease) Macular degeneration Maxillary sinusitis Pure hypercholesterolemia Thyroid disease Home Medications calcium carbonate 500 mg-vitamin D3 5 mcg (200 unit) tablet 2 tab PO QDAY supplement 01/01/18 [History Last Taken 05/19/22] levothyroxine 50 mcg tablet 50 mcg PO QDAY thyroid 90 days #90 tabs 01/01/18 [History Last Taken 05/19/22] omega-3 fatty acids 1,000 mg capsule (Fish Oil Concentrate) 1,000 mg PO QDAY supplement 03/19/18 [History Last Taken 05/19/22] acetaminophen 325 mg tablet (Tylenol) 325 mg PO Q6H PRN Pain Or Fever 07/29/18 [History Last Taken Unknown] ketotifen fumarate 0.025 % (0.035 %) eye drops (Zaditor) 1 drp ophthalmic (eye) BID macular degeneration 07/29/18 [History Last Taken 05/19/22] aloe vera 25 mg capsule 25 mg PO DAILY PRN supplement 06/08/21 [History Last Taken 05/18/22] multivitamin with min no.36-iron,carbonyl-FA 16 mg iron-0.38 mg tablet (Geritol Complete) 1 tab PO DAILY supplement 06/08/21 [History Last Taken 05/19/22] amlodipine 5 mg tablet 5 mg PO QDAY #90 tabs 02/25/22 [Rx Last Taken 05/19/22] aspirin 81 mg tablet,delayed release (Adult Aspirin Regimen) 81 mg PO QDAY [facility] 03/01/22 [History Last Taken 05/19/22] vit C 250 mg-vit E 90 mg-zinc 40 mg-copper 1 gm-pymign-mxvqui capsule (PreserVision AREDS-2) 1 tab PO BID eye health 03/01/22 [History Last Taken 05/19/22] losartan 25 mg tablet 50 mg PO DAILY #180 tabs 05/13/22 [Rx Last Taken 05/19/22] polyethylene glycol 3350 17 gram/dose oral powder (Miralax) 17 g PO BID #238 grams 05/21/22 [Rx Last Taken Unknown] sennosides 8.6 mg-docusate sodium 50 mg tablet (Senna-S) 1 tab-cap PO QHS #30 tabs 05/21/22 [Rx Last Taken Unknown] hydrocodone-acetaminophen 5-325mg 5mg-325mg 1 tab PO Q6H PRN pain 3 days #12 tabs 07/03/22 [Rx Last Taken Unknown] Allergy/AdvReac Type Severity Reaction Status Date / Time omeprazole Allergy Intermediate Itching Verified 07/03/22 10:45 Penicillins Allergy Unknown Verified 07/03/22 10:45 lisinopril AdvReac Intermediate Cough Verified 07/03/22 10:45 Family History Mother CAD (coronary artery disease) Father CAD (coronary artery disease) Brother Heart disease Myocardial infarction Other Cancer Dementia Surgical History History of cataract surgery History of left heart catheterization History of Alexei fundoplication Tubal ligation status Social History Smoking Status: Never smoker alcohol intake: never substance use type: does not use caffeine: Yes what type of physical activity do you participate in: other details: Blockchain video frequency: daily seatbelt use: always do you feel safe at home: Yes additional social history: ROS ROS ED ROS Narrative Past medical history: Reviewed, includes, history of compression fracture, hypercholesterolemia, hypertension, GERD, CAD, thyroid disease Medications: Reviewed in [employer] [address] Social history: Noncontributory Review of systems: All systems negative except as indicated General: No fever Eyes: No visual changes ENT: No upper airway congestion, normal voice Neck: No neck pain Cardiovascular: No chest pain Respiratory: No shortness of breath or cough Gastrointestinal: No abdominal pain, nausea vomiting or diarrhea Genitourinary: No dysuria Musculoskeletal: Back pain as in HPI Skin: No rash Neurological: No memory loss, confusion or any focal weakness Psych: No recent behavioral changes Hematologic: No easy bleeding or easy bruising EXAM Physical Exam Narrative Exam Narrative: Vitals reviewed General: Patient appears in some discomfort HEENT: Moist mucous membranes Neck: Nontender Cardiovascular normal heart rate Respiratory: No respiratory difficulty speaking in full sentences Abdomen: Soft and nontender, there is no suprapubic mass or pain Back: There is some tenderness over the lower thoracic region, pain is spinal and paraspinal both. She has quite a bit of kyphosis Extremities: Moves all extremities without joint pain or signs of trauma Neurological: There is normal plantar flexion and dorsiflexion of both feet and great toes. Patellar and Achilles reflexes are normal. Normal strength and sensation. Negative straight leg test. Skin: No rash Psychiatric: Slightly anxious. Const Vital Signs: 07/03/22 10:46 Temperature 98.2 F Temperature Source Temporal Pulse Rate 121 H Respiratory Rate 17 Blood Pressure 159/90 H Blood Pressure Mean 113 Pulse Ox 97 Oxygen Delivery Method Room Air MDM MDM MDM Narrative Medical decision making narrative: MRI significant for a new fracture at T11, there is some slight retropulsion of fragments however there is no cord impingement and patient has a normal neurological exam. I talked to Dr. Haddad from spine surgery, he advised follow- up and possible kyphoplasty. Otherwise patient be discharged with analgesia. Lab Data Labs: Laboratory Results - last 24 hr 07/03/22 07/03/22 11:25 11:25 WBC 8.8 RBC 4.24 Hgb 13.4 Hct 38.9 MCV 91.7 MCH 31.6 MCHC 34.4 RDW Std Deviation 46.0 H RDW Coeff of Teresa 13.6 Plt Count 237 MPV 8.9 Immature Gran % (Auto) 0.300 Neut % (Auto) 67.7 Lymph % (Auto) 25.1 [place] % (Auto) 6.3 Eos % (Auto) 0.3 Baso % (Auto) 0.3 Absolute Neuts (auto) 6.0 Absolute Lymphs (auto) 2.21 Nucleated RBC % 0 Sodium 132 L Potassium 4.0 Chloride 100 Carbon Dioxide 28.0 Anion Gap 4 L BUN 13 Creatinine 0.70 Estim Creat Clear Calc 30.35 Est GFR (MDRD) Af Amer 102 Est GFR (MDRD) Non-Af 85 BUN/Creatinine Ratio 18.5 Glucose 201 H Calcium 9.6 Total Bilirubin 0.50 AST 25 ALT 28 Alkaline Phosphatase 139 H Total Protein 7.6 Albumin 3.8 Globulin 3.8 Albumin/Globulin Ratio 1.0 Radiography Diagnostic Testing: Clinical Impression(s) from Imaging Studies Thoracic Spine MRI 07/03/22 11:04 IMPRESSION: Acute fracture of the T11 vertebral body. Disruption of the posterior cortex with subtle retropulsion of fracture fragments in the spinal canal. Chronic fractures of the T10 and T12 and L1 vertebral bodies demonstrate no change. Electronically Signed: Bryan Aldana MD at 13:22 EDT , Discharge Plan Triage Chief Complaint: Back ED Provider: Amos Ponce Dx/Rx/DC Orders Clinical Impression: Compression fracture, Back pain Instructions: Fx Back, How Bones Heal Prescriptions: New hydrocodone-acetaminophen 5-325 mg tablet 1 tab PO Q6H MDD 6 PRN (Reason: pain) 3 Days Qty: 12 0RF Rx Instructions: qid No Action levothyroxine 50 mcg tablet 50 mcg PO QDAY 90 Days Qty: 90 Label Comments: calcium carbonate-vitamin D3 500 mg(1,250mg) -200 unit tablet 2 tab PO QDAY aspirin [Adult Aspirin Regimen] 81 mg tablet,delayed release (DR/EC) 81 mg PO QDAY omega-3 fatty acids [Fish Oil Concentrate] 1,000 mg capsule 1,000 mg PO QDAY ketotifen fumarate [Zaditor] 0.025 % (0.035 %) drops 1 drp OPHTHALMIC BID acetaminophen [Tylenol] 325 mg tablet 325 mg PO Q6H PRN (Reason: Pain Or Fever) Geritol Complete 16 mg iron- 0.38 mg tablet 1 tab PO DAILY aloe vera 25 mg capsule 25 mg PO DAILY PRN (Reason: supplement) PreserVision AREDS-2 250-90-40-1 mg capsule 1 tab PO BID sennosides-docusate sodium [Senna-S] 8.6-50 mg tablet 1 tab-cap PO QHS Qty: 30 0RF polyethylene glycol 3350 [Miralax] 17 gram/dose powder 17 g PO BID Qty: 238 0RF amlodipine 5 mg tablet 5 mg PO QDAY Qty: 90 3RF losartan 25 mg tablet 50 mg PO DAILY Qty: 180 3RF Primary Care Provider: Amos King Referrals: Amos King MD [Primary Care Provider] - 3-5 Days Disposition Disposition: Home, Self Care
[2022-07-03] MEDS: Morphine 4 MG/ML Syringe IV (11:23)
[2022-07-03] MEDS: Ondansetron 4 MG/2 ML Vial IV (11:23)
[2022-07-03 11:33] LABS: Absolute Lymphocyte Count 2.21 X10^3/uL (0.83-4.51); Basophil# 0.03 X10^3/uL; Basophil% 0.3 % (0-1); Eosinophil# 0.03 X10^3/uL; Eosinophils% 0.3 % (0-5); Hematocrit 38.9 % (37-47); Hemoglobin 13.4 g/dL (12.0-15.0); Lymphocyte # 2.21 X10^3/ul (0.83-4.51); Lymphocyte % 25.1 % (19-41); Mean Corp Hgb Conc 34.4 g/dL (32-36); Mean Corpuscular Hgb 31.6 pg (27.0-32.0); Mean Corpuscular Volume 91.7 fL (81-99); Mean Platelet Vol. 8.9 fl (6.2-12.0); Monocyte# 0.55 X10^3/uL; Monocyte% 6.3 % (0-10); NRBC Flagged by Analyzer 0 % (0-5); Neutrophil # 5.95 X10^3/uL (2.7-7.7); Neutrophil % 67.7 % (47-70); Platelet Count 237 K/mm3 (150-450); RBC Distribution Width CV 13.6 % (11.6-14.6); Red Blood Count 4.24 M/mm3 (4.2-5.4); White Blood Count 8.8 K/mm3 (4.4-11.0)
[2022-07-03 11:48] LABS: AST(SGOT) 25 U/L (15-37); Alanine Aminotransfer ALT/SGPT 28 U/L (13-56); Albumin, Serum 3.8 g/dL (3.2-5.0); Alkaline Phosphatase 139 U/L (45-117); Anion Gap 4 (5-15); BUN 13 mg/dL (7-18); BUN/Creat Ratio 18.5 RATIO (10-20); Calcium,Total 9.6 mg/dL (8.5-10.1); Chloride 100 mmol/L (98-107); EST Glomerular Filtration Rate 85 mL/min (>60); Est Glom Filt Rate - Afr Amer 102 mL/min (>60); Estimated Creatinine Clearance 30.35 ml/min; Globulin 3.8 g/dL (2.2-4.2); Glucose 201 mg/dL (74-106); Protein, Total 7.6 g/dL (6.4-8.2); Sodium Level 132 mmol/L (136-145)
[2022-07-03 15:01] VITALS: BP 138/77; PULSE 62; RESP 15; O2SAT 97
== END 2022-07-03 15:10 | disposition home or self-care (01) ==
PROVIDERS: Emergency Provider Emergency Medicine; PCP Family Medicine; Visit Provider Emergency Medicine
DX: S22.089A Unspecified fracture of T11-T12 vertebra, initial encounter for closed fracture (principal); I10 Essential (primary) hypertension; E78.00 Pure hypercholesterolemia, unspecified; I25.10 Atherosclerotic heart disease of native coronary artery without angina pectoris; Z79.899 Other long term (current) drug therapy
CPT/HCPCS: 72146; 80053; 85025; 96374; 96375; 99282; A4216; J2405

== ENCOUNTER → 2022-12-18 | Outpatient (CLI) | payer MEDICARE, OTHER, SELFPAY ==
[2022-12-18 13:40] LABS: Anion Gap 9 (5-15); BUN 13 mg/dL (7-18); BUN/Creat Ratio 23.5 RATIO (10-20); Calcium,Total 9.7 mg/dL (8.5-10.1); Chloride 97 mmol/L (98-107); Cholesterol 187 mg/dL (200); Creatinine, Serum 0.55 mg/dL (0.55-1.02); EST Glomerular Filtration Rate 111 mL/min (>60); Est Glom Filt Rate - Afr Amer 134 mL/min (>60); Free T3 2.5 pg/mL (2.18-3.98); Glucose 115 mg/dL (74-106); High Density Lipoprotein 80 mg/dL; Potassium 4.6 mmol/L (3.5-5.1); Sodium Level 133 mmol/L (136-145); T4 Free Direct 1.22 ng/dL (0.76-1.46); Thyroid Stim Hormone (TSH) 2.44 uIU/mL (0.358-3.74); Triglycerides 59 mg/dL; Very Low Density Lipoprotein 12 mg/dL (5-40)
== END | disposition home or self-care (01) ==
LOC: MFPLAB 11:12
PROVIDERS: PCP Family Medicine; Referring Provider Family Medicine; Visit Provider Family Medicine
DX: I10 Essential (primary) hypertension (principal); E03.9 Hypothyroidism, unspecified
CPT/HCPCS: 36415; 80048; 80061; 84439; 84443; 84481

== ENCOUNTER → 2023-05-15 | Outpatient (CLI) | payer MEDICARE, OTHER, SELFPAY ==
[2023-05-15 17:54] LABS: Absolute Lymphocyte Count 3.73 X10^3/uL (0.83-4.51); Basophil# 0.03 X10^3/uL; Basophil% 0.4 % (0-1); Eosinophil# 0.07 X10^3/uL; Eosinophils% 0.8 % (0-5); Hemoglobin 13.4 g/dL (12.0-15.0); Lymphocyte # 3.73 X10^3/ul (0.83-4.51); Lymphocyte % 44.5 % (19-41); Mean Corp Hgb Conc 32.7 g/dL (32-36); Mean Corpuscular Hgb 30.7 pg (27.0-32.0); Mean Platelet Vol. 9.4 fl (6.2-12.0); Monocyte# 0.59 X10^3/uL; NRBC Flagged by Analyzer 0 % (0-5); Neutrophil # 3.95 X10^3/uL (2.7-7.7); Neutrophil % 47.1 % (47-70); Platelet Count 314 K/mm3 (150-450); RBC Distribution Width CV 13.3 % (11.6-14.6); Red Blood Count 4.36 M/mm3 (4.2-5.4); White Blood Count 8.4 K/mm3 (4.4-11.0)
[2023-05-15 18:42] LABS: Free T3 2.3 pg/mL (2.18-3.98)
== END | disposition home or self-care (01) ==
LOC: MFPLAB 15:12
PROVIDERS: PCP Family Medicine; Visit Provider Family Medicine
DX: E03.9 Hypothyroidism, unspecified (principal); R53.83 Other fatigue
CPT/HCPCS: 36415; 84439; 84443; 84481; 85025

== ENCOUNTER → 2023-05-26 | Outpatient (CLI) | payer MEDICARE, OTHER, SELFPAY ==
--- NOTE | 2023-05-26 10:16 | RAD_ITS ---
INDICATION: FALL EXAMINATION/TECHNIQUE: X-RAY - XR Spine Thoracic 3 Views COMPARISON: 05/30/2022. FINDINGS: VERTEBRAE: Vertebroplasty at T12 and L4 unchanged. New vertebroplasty at T11. Severe compression fracture of T10 unchanged. Moderate compression fracture of T9 vertebra increased since the previous exam. Posterior degenerative spurs at L1-L2. Dextroscoliosis of the thoracic spine. Increased kyphosis. DISCS: Disc spaces are maintained. INCLUDED CHEST/ABDOMEN: No acute abnormalities. RAD/Thoracic Spine 3 Views IMPRESSION: Chronic compression fractures of several thoracic and lumbar vertebrae as described above. Electronically Signed: Foreign Felipe MD at 11:47 EDT ,
--- NOTE | 2023-05-26 10:16 | RAD_ITS ---
INDICATION: FALL EXAMINATION/TECHNIQUE: X-RAY - XR Spine Lumbar 2 or 3 Views COMPARISON: Thoracic spine x-rays 05/30/2022. FINDINGS: Bones are osteopenic. Vertebroplasty L4 with stable configuration. L1 with marked compression abnormality, unchanged. L3 with mild compression of the superior endplate, approximately 20% vertebral body height loss, but uncertain age but appears new compared to prior study. No subluxation. No paravertebral soft tissue mass identified. Stool obscures the sacrum and iliac wings. RAD/Lumbar Spine 2 or 3 Views IMPRESSION: L3 mild compression abnormality possibly acute or subacute. Stable L1 compression and compression/vertebroplasty. Electronically Signed: Gabrielle Bangura MD at 7:15 EDT ,
== END | disposition home or self-care (01) ==
LOC: RAD 10:15
PROVIDERS: PCP Family Medicine; Referring Provider Anesthesiology Pain Medicine; Visit Provider Anesthesiology Pain Medicine
DX: S22.070A Wedge compression fracture of T9-T10 vertebra, initial encounter for closed fracture (principal); S32.000A Wedge compression fracture of unspecified lumbar vertebra, initial encounter for closed fracture; M85.80 Other specified disorders of bone density and structure, unspecified site; W19.XXXA Unspecified fall, initial encounter
CPT/HCPCS: 72072; 72100

== ENCOUNTER → 2023-11-13 | Outpatient (CLI) | payer MEDICARE, OTHER, SELFPAY ==
[2023-11-13 17:51] LABS: Anion Gap 6 (5-15); BUN 14 mg/dL (7-18); BUN/Creat Ratio 23.2 RATIO (10-20); Calcium,Total 9.3 mg/dL (8.5-10.1); Chloride 100 mmol/L (98-107); EST Glomerular Filtration Rate 100 mL/min (>60); Est Glom Filt Rate - Afr Amer 121 mL/min (>60); Free T3 2.5 pg/mL (2.18-3.98); Glucose 137 mg/dL (74-106); Potassium 4.5 mmol/L (3.5-5.1); Sodium Level 137 mmol/L (136-145); Thyroid Stim Hormone (TSH) 4.01 uIU/mL (0.358-3.74)
== END | disposition home or self-care (01) ==
LOC: MFPLAB 14:27
PROVIDERS: PCP Family Medicine; Visit Provider Family Medicine
DX: E03.9 Hypothyroidism, unspecified (principal); I10 Essential (primary) hypertension
CPT/HCPCS: 36415; 80048; 84439; 84443; 84481

== ENCOUNTER 2024-02-12 16:52 | Outpatient (CLI) | payer MEDICARE, OTHER, SELFPAY ==
[2024-02-12 17:44] LABS: Absolute Lymphocyte Count 3.15 X10^3/uL (0.83-4.51); Absolute Neutrophil Count 3.2 X10^3/uL (2.0-7.7); Basophil# 0.03 X10^3/uL; Basophil% 0.4 % (0-1); Eosinophil# 0.08 X10^3/uL; Eosinophils% 1.1 % (0-5); Hematocrit 39.5 % (37-47); Hemoglobin 12.9 g/dL (12.0-15.0); Lymphocyte # 3.15 X10^3/ul (0.83-4.51); Lymphocyte % 44.6 % (19-41); Mean Corp Hgb Conc 32.7 g/dL (32-36); Mean Corpuscular Hgb 30.2 pg (27.0-32.0); Mean Corpuscular Volume 92.5 fL (81-99); Mean Platelet Vol. 8.9 fl (6.2-12.0); Monocyte# 0.58 X10^3/uL; Monocyte% 8.2 % (0-10); NRBC Flagged by Analyzer 0 % (0-5); Neutrophil # 3.21 X10^3/uL (2.7-7.7); Neutrophil % 45.4 % (47-70); Platelet Count 309 K/mm3 (150-450); RBC Distribution Width CV 13.5 % (11.6-14.6); RBC Distribution Width SD 46.1 fl (35.1-43.9); Red Blood Count 4.27 M/mm3 (4.2-5.4); White Blood Count 7.1 K/mm3 (4.4-11.0)
[2024-02-12 19:15] LABS: ALB/GLOB Ratio 0.9 RATIO (0.9-2.4); AST(SGOT) 23 U/L (15-37); Alanine Aminotransfer ALT/SGPT 27 U/L (13-56); Albumin, Serum 3.7 g/dL (3.2-5.0); Alkaline Phosphatase 148 U/L (45-117); Anion Gap 7 (5-15); BUN 18 mg/dL (7-18); BUN/Creat Ratio 27.8 RATIO (10-20); Calcium,Total 8.9 mg/dL (8.5-10.1); Chloride 97 mmol/L (98-107); Creatinine, Serum 0.65 mg/dL (0.55-1.02); EST Glomerular Filtration Rate 92 mL/min (>60); Est Glom Filt Rate - Afr Amer 112 mL/min (>60); Globulin 3.9 g/dL (2.2-4.2); Glucose 128 mg/dL (74-106); Hepatitis C Antibody Non-Reactive (Nonreactive); Potassium 4.3 mmol/L (3.5-5.1); Protein, Total 7.6 g/dL (6.4-8.2); Sodium Level 133 mmol/L (136-145); Syphilis Antibodies Non-reactive; Thyroid Stim Hormone (TSH) 3.96 uIU/mL (0.358-3.74); Vitamin B12 552 pg/mL (211-911); Vitamin D,25 Hydroxy 62.7 ng/mL
== END 2024-02-12 23:59 | disposition home or self-care (01) ==
LOC: POLAB3 16:54
PROVIDERS: PCP Family Medicine Geriatric Medicine; Visit Provider Family Medicine Geriatric Medicine
DX: E55.9 Vitamin D deficiency, unspecified (principal); G30.9 Alzheimer's disease, unspecified; I10 Essential (primary) hypertension; Z13.89 Encounter for screening for other disorder
CPT/HCPCS: 36415; 80053; 82306; 82607; 82746; 84443; 85025; 86780; 86803

== ENCOUNTER → 2024-02-16 | Outpatient (CLI) | payer MEDICARE, OTHER, SELFPAY ==
--- NOTE | 2024-02-16 11:00 | MRI_ITS ---
EXAM: MR HEAD WITHOUT INTRAVENOUS CONTRAST CLINICAL INDICATION: Alzheimer''s. Parkinson''s disease. TECHNIQUE: Multiplanar and multisequence MR images of the brain were obtained without intravenous contrast. COMPARISON: MRI brain with and without contrast 08/19/2011. FINDINGS: BRAIN AND EXTRA-AXIAL SPACES: Periventricular white matter T2 FLAIR hyperintensity foci in the cerebral hemispheres and in the left parietal lobe subcortical white matter are chronic white matter ischemic changes. These were not present previously. No diffusion restriction to suspect acute or subacute ischemic infarct. No thinning of the pars compacta of the substantia nigra and no focal signal abnormalities of the substantia nigra. No intra- or extra-axial hemorrhage. No intracranial mass or mass effect. Posterior fossa structures are unremarkable. No hydrocephalus. Basal cisterns are patent. SELLA: Unremarkable. Normal sella turcica, pituitary gland, infundibular stalk, optic chiasm and hypothalamus. AUDITORY SYSTEM: Unremarkable. The internal auditory canals are patent. BONES/JOINTS: Unremarkable. No discrete lytic or blastic abnormalities. SINUSES: Unremarkable as visualized. Clear. MASTOID AIR CELLS: Unremarkable as visualized. Clear. ORBITS: Unremarkable as visualized. Both globes, extraocular muscles, optic nerves and retrobulbar fat appear unremarkable. VASCULATURE: Unremarkable as visualized. Normal flow voids in the major intracranial circulation. MRI/Brain without Contrast IMPRESSION: 1. No MRI evidence of acute or subacute ischemic infarct, intracranial mass or acute intracranial abnormality. 2. No MRI evidence of abnormal thinning of the pars compacta of the substantia nigra and no focal signal abnormalities of the substantia nigra to suggest Parkinson''s disease. 3. Interval development of chronic periventricular white matter ischemic changes and in the subcortical white matter of the left angular gyrus when compared to 08/19/2011. Electronically Signed: Rian Arriola MD at 13:42 EDT ,
== END | disposition home or self-care (01) ==
PROVIDERS: PCP Family Medicine Geriatric Medicine; Referring Provider Family Medicine Geriatric Medicine; Visit Provider Family Medicine Geriatric Medicine
DX: G30.9 Alzheimer's disease, unspecified (principal); G20.A1 Parkinson's disease without dyskinesia, without mention of fluctuations
CPT/HCPCS: 70551

== ENCOUNTER → 2024-04-21 | Outpatient (CLI) | payer MEDICARE, OTHER, SELFPAY | END | disposition home or self-care (01) | LOC: LAB 14:45 | PROVIDERS: PCP Family Medicine Geriatric Medicine; Referring Provider Family Medicine Geriatric Medicine; Visit Provider Family Medicine Geriatric Medicine | DX: E03.9 Hypothyroidism, unspecified (principal) | CPT/HCPCS: 36415; 84443 ==

== ENCOUNTER → 2024-05-21 | Outpatient (CLI) | payer MEDICARE, OTHER, SELFPAY ==
--- NOTE | 2024-05-21 09:08 | CT_ITS ---
STUDY: CT CHEST, ABDOMEN T PELVIS WITH CONTRAST REASON FOR EXAM: Female, 84 years old. Abnormal weight loss RADIATION DOSAGE (If Supplied By Facility): CTDIvol = ( 11.88 ) mGy, DLP = ( 752.98 ) mGycm TECHNIQUE: Transaxial imaging was performed following intravenous administration of IV 100mL Isovue-300, [id number]. Individualized dose optimization techniques were used for this CT. COMPARISON: Comparison is made with prior CT scan of the chest dated October 11, [address] scan of the abdomen and pelvis dated May 19, 2022.. FINDINGS: CHEST There is elevation of the left hemidiaphragm. Mild increased markings at the lung bases suggestive of linear scarring. The lungs are normal. There is no demonstrated pleural abnormality. Normal heart and pericardium. No significant coronary artery calcification is seen. Normal mediastinum. Normal hilar regions. Normal unenhanced pulmonary arteries. There is atherosclerotic calcification of the aortic arch. There is demineralization of the thoracic spine. Increased kyphosis. Prior vertebroplasty of the lower dorsal vertebrae with loss of height and wedging of the distal dorsal vertebrae. Moderate-sized hiatal hernia. ABDOMEN There is elevation of the left hemidiaphragm. Normal liver. The gallbladder is contracted. Normal spleen. There is diffuse atrophy of the pancreas. Normal bilateral adrenal glands. Normal right kidney. Normal left kidney. Moderate-sized hiatal hernia. Normal small intestine. Moderate amount of fecal material is seen throughout the colon. The appendix is visualized and appears normal. Normal abdominal aorta. Normal inferior vena cava. Normal retroperitoneum. PELVIS Mildly distended urinary bladder. A pessary device is seen in the region of the cervix of the uterus. Normal visualized small intestine. Normal visualized colon. There is no pelvic fluid. There is no pelvic lymphadenopathy or mass lesion. Normal visualized pelvic arteries. Normal abdominal wall. There is evidence of a vertebroplasty of the T11-T12, L3 and L4 lumbar vertebrae with loss of height. CT/CT Chest, Abd, Pel w/Contrast IMPRESSION: Multilevel vertebroplasty. Moderate amount of fecal material is seen in the colon. Distended urinary bladder. Moderate sized hiatal hernia. Electronically Signed: Wolfgang Brooks MD at 10:18 EDT ,
[2024-05-21 09:53] LABS: CREATININE FINGERSTICK < 1.0 mg/dL (0.55-1.02); EGFR FINGERSTICK > 60.0000 mL/min (>60)
== END | disposition home or self-care (01) ==
PROVIDERS: PCP Family Medicine Geriatric Medicine; Referring Provider Family Medicine Geriatric Medicine; Visit Provider Family Medicine Geriatric Medicine
DX: Z01.812 Encounter for preprocedural laboratory examination (principal); R63.4 Abnormal weight loss
CPT/HCPCS: 71260; 74177; Q9967

== ENCOUNTER → 2024-05-24 | Outpatient (CLI) | payer MEDICARE, OTHER, SELFPAY | END | disposition home or self-care (01) | LOC: LAB 15:20 | PROVIDERS: PCP Family Medicine Geriatric Medicine; Referring Provider Family Medicine Geriatric Medicine; Visit Provider Family Medicine Geriatric Medicine | DX: I10 Essential (primary) hypertension (principal) | CPT/HCPCS: 36415; 80053 ==

== ENCOUNTER → 2024-06-21 | Outpatient (CLI) | payer MEDICARE, OTHER, SELFPAY ==
[2024-06-21 15:46] LABS: Absolute Lymphocyte Count 4.91 X10^3/uL (0.83-4.51); Absolute Neutrophil Count 4.7 X10^3/uL (2.0-7.7); Basophil# 0.04 X10^3/uL; Basophil% 0.4 % (0-1); Eosinophil# 0.36 X10^3/uL; Eosinophils% 3.3 % (0-5); Hematocrit 43.8 % (37-47); Hemoglobin 14.2 g/dL (12.0-15.0); Lymphocyte # 4.91 X10^3/ul (0.83-4.51); Lymphocyte % 45.4 % (19-41); Mean Corp Hgb Conc 32.4 g/dL (32-36); Mean Corpuscular Hgb 30.4 pg (27.0-32.0); Mean Corpuscular Volume 93.8 fL (81-99); Mean Platelet Vol. 8.4 fl (6.2-12.0); Monocyte# 0.73 X10^3/uL; Monocyte% 6.7 % (0-10); NRBC Flagged by Analyzer 0 % (0-5); Neutrophil # 4.74 X10^3/uL (2.7-7.7); Neutrophil % 43.8 % (47-70); Platelet Count 341 K/mm3 (150-450); RBC Distribution Width CV 15.4 % (11.6-14.6); Red Blood Count 4.67 M/mm3 (4.2-5.4); White Blood Count 10.8 K/mm3 (4.4-11.0)
[2024-06-21 16:28] LABS: ALB/GLOB Ratio 0.8 RATIO (0.9-2.4); AST(SGOT) 20 U/L (15-37); Alanine Aminotransfer ALT/SGPT 23 U/L (13-56); Albumin, Serum 3.5 g/dL (3.2-5.0); Alkaline Phosphatase 167 U/L (45-117); Anion Gap 5 (5-15); BUN 16 mg/dL (7-18); BUN/Creat Ratio 18.5 RATIO (10-20); Chloride 104 mmol/L (98-107); Creatinine, Serum 0.86 mg/dL (0.55-1.02); EST Glomerular Filtration Rate 66 mL/min (>60); Est Glom Filt Rate - Afr Amer 80 mL/min (>60); Globulin 4.3 g/dL (2.2-4.2); Glucose 94 mg/dL (74-106); Potassium 4.2 mmol/L (3.5-5.1); Protein, Total 7.8 g/dL (6.4-8.2); Sodium Level 136 mmol/L (136-145); Thyroid Stim Hormone (TSH) 3.13 uIU/mL (0.358-3.74)
== END | disposition home or self-care (01) ==
LOC: POLAB3 14:40
PROVIDERS: PCP Family Medicine Geriatric Medicine; Referring Provider Family Medicine Geriatric Medicine; Visit Provider Family Medicine Geriatric Medicine
DX: G30.9 Alzheimer's disease, unspecified (principal); R53.83 Other fatigue
CPT/HCPCS: 36415; 80053; 84443; 85025

== ENCOUNTER 2024-07-08 12:43 | Emergency (ER) | payer MEDICARE, OTHER, SELFPAY ==
[2024-07-08 12:43] VITALS: BP 151/73; PULSE 93; RESP 4; TEMP 36.6; O2SAT 99
[2024-07-08 12:45] VITALS: BMI 22.6
--- NOTE | 2024-07-08 12:56 | EKG12_ITS ---
Test Reason : ABD PAIN Blood Pressure : / mmHG Vent. Rate : 092 BPM Atrial Rate : 092 BPM P-R Int : 132 ms QRS Dur : 072 ms QT Int : 354 ms P-R-T Axes : 035 007 043 degrees QTc Int : 437 ms Normal sinus rhythm Normal ECG Confirmed by MAE SAM, NIESHA ([id number]), video editor ALLIE MULLINS ([id number]) on 07/12/2024 8:44:22 AM Referred By: Confirmed By:KATHIE WALL MD
--- NOTE | 2024-07-08 12:56 | CT_ITS ---
INDICATION: Abdominal pain EXAMINATION: CT ABDOMEN AND PELVIS WITH CONTRAST - CT Abdomen And Pelvis W/ Contrast Injection TECHNIQUE: Helically acquired images were obtained of the abdomen and pelvis following IV contrast. A radiation dose optimization technique was used for this scan. IV Contrast dosage and agent: 100 cc Isovue-300 Oral contrast: None. COMPARISON: 05/19/2022, 05/21/2024 FINDINGS: LOWER CHEST: Bibasilar dependent and/or fibrotic changes. Stable retrocardiac hiatal hernia. LIVER: Homogeneous. No focal mass. GALLBLADDER AND BILIARY TREE: Cholecystectomy. Stable postcholecystectomy biliary prominence. PANCREAS: No focal cystic or solid mass. SPLEEN: Normal size without focal cystic or solid mass. ADRENAL GLANDS: No nodules. KIDNEYS AND URETERS: No hydronephrosis. PERITONEUM: No ascites or free air. BOWEL: No evidence of acute appendicitis. Diffusely increased small bowel fluid contents. No focal inflammatory change. Increased colonic fecal burden. LYMPH NODES: No enlarged mesenteric or retroperitoneal lymph nodes. VESSELS: Aorta is non-dilated. URINARY BLADDER: Markedly distended. REPRODUCTIVE ORGANS: No pelvic masses. ABDOMINAL WALL: No discrete abdominal or pelvic wall hernia. BONES: No acute or aggressive abnormality. Multiple chronic compression fractures with multilevel kyphoplasty treatment. CT/Abdomen/Pelvis W IV Cont ONLY IMPRESSION: Nonspecific small bowel changes which may indicate enteritis in the appropriate clinical setting. Colonic fecal burden consistent with clinical constipation. Electronically Signed: Jerry Hopkins MD at 15:58 EDT ,
--- NOTE | 2024-07-08 12:57 | ED.VIS.GI ---
HPI HPI - GI History of Present Illness Chief Complaint: Abd Pain Narrative Narrative: 84-year-old female presents with her daughter because of abdominal pain. No nausea or vomiting. History and physical is limited second by dementia. Daughter states that she does live alone. When she went to visit her today, patient appeared short of breath and was panting. Patient denies any fevers or chills, or chest pain. They are unsure when she last had a bowel movement. Daughter relates history that a few years ago, she had a CT scan which showed that she had a fecal impaction. She states that her primary care provider at the time sent her to the [facility], and the oncologist stated that the patient was merely constipated. Reportedly, patient has had problems with intermittent abdominal pain over the last few years. Her daughter asked if she could bring her to the emergency department today, and she was agreeable when she usually says no. They state that patient's meals were hardly touched, so they think that she has not been eating and drinking well. 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 Thyroid disease Arthritis Chest pain, unspecified Home Medications ?Medication ?Instructions ?Recorded ?Last Taken ?Type levothyroxine 50 mcg tablet 50 mcg PO QDAY thyroid 90 days #90 01/01/18 05/19/22 History tabs acetaminophen 325 mg tablet 325 mg PO Q6H PRN Pain Or Fever 07/29/18 Unknown History (Tylenol) ketotifen fumarate 0.025 % (0.035 1 drp ophthalmic (eye) BID macular 07/29/18 05/19/22 History %) eye drops (Zaditor) degeneration vit C 250 mg-vit E 90 mg-zinc 40 1 tab PO BID eye health 03/01/22 05/19/22 History mg-copper 1 [id number] capsule (PreserVision AREDS-2) sennosides 8.6 mg-docusate sodium 1 tab-cap PO QHS #30 tabs 05/21/22 Unknown Rx 50 mg tablet (Senna-S) amlodipine 5 mg tablet See Rx Instructions .Route 01/30/24 Unknown Rx .COMPLEX #90 tabs mirtazapine 15 mg tablet 7.5 mg PO QHS 02/02/24 Unknown History carbidopa 10 mg-levodopa 100 mg 1 tab PO BID 03/16/24 Unknown History tablet (Sinemet) galantamine 4 mg tablet 4 mg PO BID 03/16/24 Unknown History losartan 25 mg tablet 50 mg (2 x 25 mg) PO DAILY #180 04/22/24 Unknown Rx tabs galantamine 16 mg 24 hr 16 mg PO DAILY 07/08/24 Unknown History capsule,extended release levothyroxine 75 mcg tablet 75 mcg PO DAILY 07/08/24 Unknown History megestrol 400 mg/10 mL (10 mL) mg PO 07/08/24 Unknown History oral suspension memantine 10 mg tablet mg PO 07/08/24 Unknown History mirtazapine 7.5 mg tablet 7.5 mg PO QHS 07/08/24 Unknown History Allergy/AdvReac Type Severity Reaction Status Date / Time omeprazole Allergy Intermediate Itching Verified 07/08/24 12:43 Penicillins Allergy Unknown Verified 07/08/24 12:43 lisinopril AdvReac Intermediate Cough Verified 07/08/24 12:43 Family History Mother CAD (coronary artery disease) Father CAD (coronary artery disease) Brother Heart disease Myocardial infarction Other Cancer Dementia Surgical History History of back surgery Tubal ligation status History of cataract surgery History of left heart catheterization History of Alexei fundoplication Social History Smoking Status: Never smoker alcohol intake: never substance use type: does not use caffeine: Yes what type of physical activity do you participate in: other details: [place] video frequency: daily seatbelt use: always do you feel safe at home: Yes additional social history: ROS ROS ED ROS Narrative Limited secondary to dementia. Obtained mainly through her daughter. Constitutional: No fever, no chills. HEENT: No sore throat. No neck pain. No loss of vision. No rhinorrhea. Cardiovascular: No chest pain. No palpitations. No pedal edema. Respiratory: No cough, appeared shortness of breath. Abdominal: Positive abdominal pain. No nausea. No vomiting. No movement Genitourinary: No dysuria. No hematuria. Musculoskeletal: No myalgias. No arthralgias. Neurologic: No headaches. No dizziness. No lightheadedness. Skin: No rash. No change in color. Psychiatric: No depression. No anxiety. EXAM Physical Exam Narrative Exam Narrative: Afebrile. Vital signs noted. HEENT: Normocephalic. Atraumatic. PERRL, EOMI. Neck soft and supple. No point tenderness or step off. Cardiovascular: Regular rate and rhythm. No murmurs, rubs, or gallops appreciated. Respiratory: No tachypnea. Lungs clear to auscultation bilaterally. Gastrointestinal: Abdomen soft, minimal diffuse tenderness with normoactive bowel sounds. No rebound or guarding. Neurological: Awake. Alert. Nonfocal, nonlateralizing. Skin: No rash. Normal color. No pallor. Musculoskeletal: No pedal edema. Full range of motion extremities. Const Vital Signs: 07/08/24 12:43 07/08/24 14:40 07/08/24 16:00 Temperature 98 F Temperature Source Temporal Pulse Rate 93 84 89 Respiratory Rate 4 L 16 16 Blood Pressure 151/73 H 127/101 H 135/64 H Blood Pressure Mean 99 109 87 Pulse Ox 99 97 95 Oxygen Delivery Method Room Air Room Air Room Air MDM MDM MDM Narrative Medical decision making narrative: Differential diagnosis includes but not limited to debility versus dehydration. Abdominal pain differential includes fecal impaction versus obstruction. However physical exam and history does not necessarily favor partial small bowel obstruction. For her shortness of breath, pneumonia is also in the differential versus pneumothorax. Comprehensive workup was pursued. EKG was obtained and interpreted by myself independently as normal sinus rhythm at 92 bpm without ectopy or acute ST changes. No STEMI. No significant change from EKG dated January 16, 2016. I reviewed her laboratory work and she has slightly elevated white count of 12.0 which I think is nonspecific, hemoglobin normal at 14.0, hematocrit 43.4, platelet count normal at 263. Electrolyte panel was obtained and chloride slightly elevated at 111 with anion gap low at 3. BUN of 16 with creatinine 0.67. Glucose appropriately elevated at 99. LFTs are grossly unremarkable except for alk phos of 176 which I think is nonspecific. Urinalysis is negative for infection with WBC count 0. I do not feel antibiotics are indicated. Chest x-ray 1 view interpreted by myself independently shows no evidence of pneumonia or pneumothorax. I reviewed the radiology report which confirms my independent interpretation. Additionally, I reviewed the CT of the abdomen and pelvis which shows nonspecific small bowel changes which may be consistent with enteritis in the right clinical setting. There is a large fecal burden. However, no acute process. Upon repeat examination, she states she feels improved and would like to go home. Although she has dementia, her daughter/family are agreeable to this. I had discussed with them home health care and an RN who visits weekly, and they state that she already has that. She is also supposed to be taking MiraLAX daily. She can continue this. I had discussed with them admission for nursing home placement versus rehab and they declined stating that patient would become angry, and she reiterated that she would like to go home. Return instructions to the emergency department were reviewed. Disposition is discharged in stable condition. History & Record Review Discussion w/independent historian: Patient and Family Additional record(s) reviewed:: Prior labs Lab Data Attestation: I reviewed the patient's lab results. Labs: Laboratory Results - last 24 hr 07/08/24 07/08/24 07/08/24 13:06 13:15 13:55 WBC 12.0 H RBC 4.58 Hgb 14.0 Hct 43.4 MCV 94.8 MCH 30.6 MCHC 32.3 RDW Std Deviation 56.3 H RDW Coeff of Teresa 16.1 H Plt Count 263 MPV 8.1 Immature Gran % (Auto) 1.000 H Neut % (Auto) 33.6 L Lymph % (Auto) 55.4 H [place] % (Auto) 6.7 Eos % (Auto) 2.9 Baso % (Auto) 0.4 Absolute Neuts (auto) 4.0 Absolute Lymphs (auto) 6.62 H Nucleated RBC % 0 Differential Comment SCANNED Sodium Cancelled 142 Potassium Cancelled 4.2 Chloride Cancelled 111 H Carbon Dioxide Cancelled 28.0 Anion Gap Cancelled 3 L BUN Cancelled 16 Creatinine Cancelled 0.67 Estim Creat Clear Calc Cancelled 36.26 Est GFR (MDRD) Af Amer Cancelled 107 Est GFR (MDRD) Non-Af Cancelled 88 BUN/Creatinine Ratio Cancelled 23.7 H Glucose Cancelled 99 Calcium Cancelled 8.8 Total Bilirubin Cancelled 0.10 L AST Cancelled 21 ALT Cancelled 19 Alkaline Phosphatase Cancelled 176 H Total Protein Cancelled 6.8 Albumin Cancelled 3.2 Globulin Cancelled 3.6 Albumin/Globulin Ratio Cancelled 0.9 Lipase Cancelled 33 Urine Color Yellow Urine Clarity Clear Urine pH 6.5 Ur Specific [place] 1.010 Urine Protein Negative Urine Glucose (UA) Normal Urine Ketones Negative Urine Occult Blood Negative Urine Nitrite Negative Urine Bilirubin Negative Urine Urobilinogen Normal Ur Leukocyte Esterase 100 H Urine RBC 0 SEEN Urine WBC 0 SEEN Ur Squamous Epith Cells 0 SEEN Urine Bacteria 0 SEEN Urine Mucus 0 SEEN Radiography Diagnostic Testing: Clinical Impression(s) from Imaging Studies Abdomen/Pelvis CT 07/08/24 12:56 IMPRESSION: Nonspecific small bowel changes which may indicate enteritis in the appropriate clinical setting. Colonic fecal burden consistent with clinical constipation. Electronically Signed: Jerry Hopkins MD at 15:58 EDT , Chest X-Ray 07/08/24 14:15 IMPRESSION: Cardiomegaly, low volume inspiration and no acute abnormality. Electronically Signed: Jax Smith MD at 14:23 EDT , Discharge Plan Triage Chief Complaint: Abd Pain ED Provider: Rian Holguin Dx/Rx/DC Orders Clinical Impression: Dementia, Abdominal pain, Constipation Instructions: Dementia Daily Care, ED Abdominal Pain Unkn Cause Fem, ED Constipation (Adult) Prescriptions: No Action levothyroxine 50 mcg tablet 50 mcg PO QDAY 90 Days Qty: 90 Patient Comments: ketotifen fumarate [Zaditor] 0.025 % (0.035 %) drops 1 drp OPHTHALMIC BID acetaminophen [Tylenol] 325 mg tablet 325 mg PO Q6H PRN (Reason: Pain Or Fever) PreserVision AREDS-2 250-90-40-1 mg capsule 1 tab PO BID mirtazapine 15 mg tablet 7.5 mg PO QHS Patient Comments: TAKE 1 TABLET BY MOUTH AT BEDTIME sennosides-docusate sodium [Senna-S] 8.6-50 mg tablet 1 tab-cap PO QHS Qty: 30 0RF carbidopa-levodopa [Sinemet] 10-100 mg tablet 1 tab PO BID galantamine 4 mg tablet 4 mg PO BID Rx Instructions: administer with AM and PM meals levothyroxine 75 mcg tablet 75 mcg PO DAILY memantine 10 mg tablet PO mirtazapine 7.5 mg tablet 7.5 mg PO QHS galantamine 16 mg capsule,ext rel. pellets 24 hr 16 mg PO DAILY megestrol 400 mg/10 mL (10 mL) suspension PO amlodipine 5 mg tablet See Rx Instructions .ROUTE .COMPLEX Qty: 90 3RF Dose Instruction: TAKE 1 TABLET DAILY Rx Instructions: TAKE 1 TABLET DAILY losartan 25 mg tablet 50 mg PO DAILY Qty: 180 3RF Primary Care Provider: Mahesh Bedolla Chi Referrals: Mahesh Bedolla Chi, MD [Primary Care Provider] - As soon as possible Print Language: Egyptian Disposition Disposition: Home, Self Care
[2024-07-08] MEDS: 0.9% Normal Saline (1000mL) 1,000 ML 999 ML IV (13:12)
[2024-07-08] MEDS: Ondansetron 4 MG/2 ML Vial IV (13:13)
[2024-07-08] MEDS: Morphine 4 MG/ML Syringe IV (13:13)
[2024-07-08 13:24] LABS: Absolute Lymphocyte Count 6.62 X10^3/uL (0.83-4.51); Basophil# 0.05 X10^3/uL; Basophil% 0.4 % (0-1); Eosinophil# 0.35 X10^3/uL; Eosinophils% 2.9 % (0-5); Hematocrit 43.4 % (37-47); Lymphocyte # 6.62 X10^3/ul (0.83-4.51); Lymphocyte % 55.4 % (19-41); Mean Corp Hgb Conc 32.3 g/dL (32-36); Mean Corpuscular Hgb 30.6 pg (27.0-32.0); Mean Corpuscular Volume 94.8 fL (81-99); Mean Platelet Vol. 8.1 fl (6.2-12.0); Monocyte% 6.7 % (0-10); NRBC Flagged by Analyzer 0 % (0-5); Neutrophil # 4.02 X10^3/uL (2.7-7.7); Neutrophil % 33.6 % (47-70); POSITIVE DIFFERENTIAL YES; Platelet Count 263 K/mm3 (150-450); RBC Distribution Width CV 16.1 % (11.6-14.6); RBC Distribution Width SD 56.3 fl (35.1-43.9); Red Blood Count 4.58 M/mm3 (4.2-5.4)
[2024-07-08 13:25] LABS: Differential Indicated SCAN CRITERIA MET
[2024-07-08 13:32] LABS: Bacteria 0 SEEN /hpf (None Seen); Mucous, Urine 0 SEEN /hpf (<or=2+); Red Blood Cells-Urine 0 SEEN /hpf (0-5); Squamous Epithelial Cells - UA 0 SEEN /hpf (5-10); White Blood Cells 0 SEEN /hpf (0-5)
[2024-07-08 13:48] LABS: Color, Urine Yellow (Yellow); Glucose, Dipstick Normal (Normal); Ketone-Dipstick Negative (Negative); Leukocyte Esterase-Dipstick 100 /ul (Negative); Nitrite-Dipstick Negative (Negative); Occult Blood-Urine Negative /ul (Negative); Protein-Dipstick Negative (Negative); Urine Bilirubin Dipstick Negative (Negative); Urine Clarity Clear (Clear); Urine Urobilinogen Normal (Normal); Urine pH 6.5 (5.0 - 8.0)
[2024-07-08 13:48] LABS: Differential Comment SCANNED
--- NOTE | 2024-07-08 14:15 | RAD_ITS ---
STUDY: X-RAY CHEST REASON FOR EXAM: Female, 84 years old. Shortness of breath. TECHNIQUE: Single frontal view of the chest. COMPARISON: August 01, 2020 FINDINGS: Low volume inspiration with bibasilar atelectasis. Mild diffuse interstitial prominence. There is no demonstrated pleural abnormality. Cardiomegaly. Normal mediastinum and nighat. Normal visualized pulmonary arteries. Aortic tortuosity with calcification. No abnormality of the visualized soft tissue structures of the upper abdomen. RAD/Chest 1 View (Portable) IMPRESSION: Cardiomegaly, low volume inspiration and no acute abnormality. Electronically Signed: Jax Smith MD at 14:23 EDT ,
[2024-07-08 14:20] LABS: ALB/GLOB Ratio 0.9 RATIO (0.9-2.4); AST(SGOT) 21 U/L (15-37); Alanine Aminotransfer ALT/SGPT 19 U/L (13-56); Albumin, Serum 3.2 g/dL (3.2-5.0); Alkaline Phosphatase 176 U/L (45-117); Anion Gap 3 (5-15); BUN 16 mg/dL (7-18); BUN/Creat Ratio 23.7 RATIO (10-20); Calcium,Total 8.8 mg/dL (8.5-10.1); Chloride 111 mmol/L (98-107); Creatinine, Serum 0.67 mg/dL (0.55-1.02); EST Glomerular Filtration Rate 88 mL/min (>60); Est Glom Filt Rate - Afr Amer 107 mL/min (>60); Estimated Creatinine Clearance 36.26 ml/min; Globulin 3.6 g/dL (2.2-4.2); Glucose 99 mg/dL (74-106); Lipase 33 U/L (13-75); Potassium 4.2 mmol/L (3.5-5.1); Protein, Total 6.8 g/dL (6.4-8.2); Sodium Level 142 mmol/L (136-145)
[2024-07-08 14:40] VITALS: BP 127/101; PULSE 84; RESP 16; O2SAT 97
[2024-07-08 16:00] VITALS: BP 135/64; PULSE 89; RESP 16; O2SAT 95
[2024-07-08 16:54] VITALS: BP 136/73; PULSE 84; RESP 16; TEMP 36.7; O2SAT 96
== END 2024-07-08 16:58 | disposition home or self-care (01) ==
PROVIDERS: Emergency Provider Emergency Medicine; PCP Family Medicine Geriatric Medicine; Visit Provider Emergency Medicine
DX: K59.00 Constipation, unspecified (principal); F03.90 Unspecified dementia, unspecified severity, without behavioral disturbance, psychotic disturbance, mood disturbance, and anxiety; I10 Essential (primary) hypertension; I25.10 Atherosclerotic heart disease of native coronary artery without angina pectoris; Z79.899 Other long term (current) drug therapy
CPT/HCPCS: 71045; 74177; 80053; 81001; 83690; 85025; 93005; 96361; 96374; 96375; 99284; J7030; Q9967; A4216; J2405

== ENCOUNTER → 2024-07-19 | Outpatient (CLI) | payer MEDICARE, OTHER, SELFPAY ==
[2024-07-19 12:37] LABS: Absolute Lymphocyte Count 5.49 X10^3/uL (0.83-4.51); Absolute Neutrophil Count 4.9 X10^3/uL (2.0-7.7); Basophil# 0.06 X10^3/uL; Basophil% 0.5 % (0-1); Eosinophil# 0.19 X10^3/uL; Eosinophils% 1.6 % (0-5); Hematocrit 46.4 % (37-47); Hemoglobin 15.2 g/dL (12.0-15.0); Lymphocyte # 5.49 X10^3/ul (0.83-4.51); Lymphocyte % 47.5 % (19-41); Mean Corp Hgb Conc 32.8 g/dL (32-36); Mean Corpuscular Hgb 30.8 pg (27.0-32.0); Mean Corpuscular Volume 93.9 fL (81-99); Mean Platelet Vol. 8.3 fl (6.2-12.0); Monocyte% 6.9 % (0-10); NRBC Flagged by Analyzer 0 % (0-5); Neutrophil # 4.93 X10^3/uL (2.7-7.7); Neutrophil % 42.7 % (47-70); POSITIVE DIFFERENTIAL YES; Platelet Count 354 K/mm3 (150-450); RBC Distribution Width CV 16.8 % (11.6-14.6); RBC Distribution Width SD 57.9 fl (35.1-43.9); Red Blood Count 4.94 M/mm3 (4.2-5.4); White Blood Count 11.6 K/mm3 (4.4-11.0)
[2024-07-19 12:43] LABS: Differential Indicated SCAN CRITERIA MET
[2024-07-19 13:02] LABS: Differential Comment SCANNED
[2024-07-19 13:40] LABS: AST(SGOT) 48 U/L (15-37); Alanine Aminotransfer ALT/SGPT 32 U/L (13-56); Albumin, Serum 3.9 g/dL (3.2-5.0); Alkaline Phosphatase 161 U/L (45-117); Anion Gap 7 (5-15); BUN 16 mg/dL (7-18); BUN/Creat Ratio 22.5 RATIO (10-20); Calcium,Total 9.1 mg/dL (8.5-10.1); Chloride 106 mmol/L (98-107); Creatinine, Serum 0.71 mg/dL (0.55-1.02); EST Glomerular Filtration Rate 83 mL/min (>60); Est Glom Filt Rate - Afr Amer 100 mL/min (>60); Globulin 3.9 g/dL (2.2-4.2); Glucose 88 mg/dL (74-106); Potassium 4.8 mmol/L (3.5-5.1); Protein, Total 7.8 g/dL (6.4-8.2); Sodium Level 135 mmol/L (136-145)
== END | disposition home or self-care (01) ==
LOC: POLAB3 12:13
PROVIDERS: PCP Family Medicine Geriatric Medicine; Visit Provider Family Medicine Geriatric Medicine
DX: R53.83 Other fatigue (principal); E78.5 Hyperlipidemia, unspecified; N39.0 Urinary tract infection, site not specified
CPT/HCPCS: 36415; 80053; 85025; 87086; 87088

== ENCOUNTER 2024-07-22 13:32 | Emergency (ER) | payer MEDICARE, OTHER, SELFPAY ==
[2024-07-22 13:32] VITALS: BP 179/81; PULSE 89; RESP 17; TEMP 36.1; O2SAT 99
--- NOTE | 2024-07-22 13:57 | ED.RN ---
NO OLD EKGS
[2024-07-22 14:03] VITALS: O2SAT 97
[2024-07-22 14:04] VITALS: O2SAT 97
--- NOTE | 2024-07-22 14:05 | ED.VIS.DYS ---
HPI History of Present Illness Chief Complaint: Shortness of Breath Informant: patient and family Onset/Context/Timing Onset: Today Timing: Intermittent Quality: Negative for Dyspnea on exertion Current Severity: Gone Maximum Severity: Mild Worsened by: Nothing Relieved by: Nothing Associated Symptoms Negative for cough Chest Pain: Positive for None Narrative Narrative: 84-year-old female history of Parkinson's and dementia. Also macular degeneration. Lives alone at home. Daughter states that she had shortness of breath earlier today. Patient states is now resolved. She denies any chest pain. Denies fever or cough. Denies any abdominal pain. No change or worsening leg swelling. No hemoptysis. 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 Thyroid disease Arthritis Chest pain, unspecified Home Medications ?Medication ?Instructions ?Recorded ?Last Taken ?Type levothyroxine 50 mcg tablet 50 mcg PO QDAY thyroid 90 days #90 01/01/18 05/19/22 History tabs acetaminophen 325 mg tablet 325 mg PO Q6H PRN Pain Or Fever 07/29/18 Unknown History (Tylenol) ketotifen fumarate 0.025 % (0.035 1 drp ophthalmic (eye) BID macular 07/29/18 05/19/22 History %) eye drops (Zaditor) degeneration vit C 250 mg-vit E 90 mg-zinc 40 1 tab PO BID eye health 03/01/22 05/19/22 History mg-copper 1 ad-xgxzbj-hccxly capsule (PreserVision AREDS-2) sennosides 8.6 mg-docusate sodium 1 tab-cap PO QHS #30 tabs 05/21/22 Unknown Rx 50 mg tablet (Senna-S) amlodipine 5 mg tablet See Rx Instructions .Route 01/30/24 Unknown Rx .COMPLEX #90 tabs mirtazapine 15 mg tablet 7.5 mg PO QHS 02/02/24 Unknown History carbidopa 10 mg-levodopa 100 mg 1 tab PO BID 04/16/24 Unknown History tablet (Sinemet) galantamine 4 mg tablet 4 mg PO BID 03/16/24 Unknown History losartan 25 mg tablet 50 mg (2 x 25 mg) PO DAILY #180 04/22/24 Unknown Rx tabs galantamine 16 mg 24 hr 16 mg PO DAILY 07/08/24 Unknown History capsule,extended release levothyroxine 75 mcg tablet 75 mcg PO DAILY 07/08/24 Unknown History megestrol 400 mg/10 mL (10 mL) mg PO 07/08/24 Unknown History oral suspension memantine 10 mg tablet mg PO 07/08/24 Unknown History mirtazapine 7.5 mg tablet 7.5 mg PO QHS 07/08/24 Unknown History Allergy/AdvReac Type Severity Reaction Status Date / Time omeprazole Allergy Intermediate Itching Verified 07/22/24 13:32 Penicillins Allergy Unknown Verified 07/22/24 13:32 lisinopril AdvReac Intermediate Cough Verified 07/22/24 13:32 Family History Mother CAD (coronary artery disease) Father CAD (coronary artery disease) Brother Heart disease Myocardial infarction Other Cancer Dementia Surgical History History of back surgery Tubal ligation status History of cataract surgery History of left heart catheterization History of Alexei fundoplication Social History Smoking Status: Never smoker alcohol intake: never substance use type: does not use caffeine: Yes what type of physical activity do you participate in: other details: Only [place] video frequency: daily seatbelt use: always do you feel safe at home: Yes additional social history: ROS ROS ED ROS Narrative Short of breath resolved. No chest pain. No fever or cough. Constitutional Constitutional ED: Denies chills or fever(s) Eyes Eyes: Denies blurry vision ENT ENT ED: Denies ear pain Cardiovascular Cardiovascular: Denies chest pain, orthopnea or paroxysmal nocturnal dyspnea Respiratory/Chest Respiratory/Chest: Reports dyspnea; Denies cough, dyspnea on exertion, orthopnea, paroxysmal nocturnal dyspnea or sputum Gastrointestinal Gastrointestinal: Denies abdominal pain, constipation, diarrhea, melena, nausea or vomiting Genitourinary Genitourinary ED: Denies dysuria or hematuria Musculoskeletal Musculoskeletal: Denies arthralgias, back pain, myalgias or neck pain Integumentary Denies abscess, Abrasions or rash Neurologic Neurologic: Denies headache(s) Psychiatric Psychiatric: Denies anxiety Endocrine Endocrinology: Denies cold intolerance Hematologic/Lymphatic Hematologic/Lymphatic: Denies easy bleeding, easy bruising or lymphadenopathy Allergic/Immunologic Allergic/Immunologic ED: Denies mouth swelling, tongue swelling or urticaria EXAM Physical Exam Narrative Exam Narrative: 84-year-old female vital signs stable afebrile. Her pulse ox on room air is 99%. She is in no distress and has no complaints. Family is in the room. H EENT exam unremarkable. Pupils are round reactive light. She is chronically diminished vision from macular degeneration. Neck nontender no JVD. Lungs clear to auscultation bilaterally. Heart regular rhythm rate about 90 3/6 systolic ejection murmur. Chest wall nontender. Abdomen soft nontender. Nondistended. No peritoneal signs. Moving all 4 extremities. Trace ankle edema. Patient is awake. She is answering questions following commands. Moving all 4 extremities. Const Vital Signs: 07/22/24 13:32 07/22/24 14:03 07/22/24 14:04 Temperature 97 F L Temperature Source Temporal Pulse Rate 89 Respiratory Rate 17 Respiratory Effort Normal Non-Labored Respiratory Pattern Normal Blood Pressure 179/81 H Blood Pressure Mean 113 Pulse Ox 99 97 Oxygen Delivery Method Room Air Room Air Room Air 07/22/24 14:34 07/22/24 15:32 Temperature 98.1 F Temperature Source Oral Pulse Rate 92 89 Respiratory Rate 21 H 16 Respiratory Effort Respiratory Pattern Blood Pressure 157/73 H 149/68 H Blood Pressure Mean 101 95 Pulse Ox 98 98 Oxygen Delivery Method Room Air Positive well nourished and well developed; Negative for cachectic, contractures or unkempt General Appearance ED: well developed and NAD; Negative for unkempt, cachectic, contractures or pallor Nutritional Appearance: Negative for cachectic HEENT Reports moist mucous membranes; Denies dry mucous membranes atraumatic; Negative for trauma or tenderness Mouth ED: No dry mucous membranes Mouth: No dry mucous membranes Eyes PERRL and EOMs intact bilaterally General Eye ED: Negative for pale conjunctiva or scleral icterus Neck no lymphadenopathy, supple, no meningeal signs and no JVD General: Negative for tenderness Lymph Lymphatic: Negative for other Chest Wall Chest: Negative for other Resp normal respiratory effort and clear to auscultation bilaterally Effort and Inspection: Negative for pain with movement Auscultation: Negative for rales, rhonchi, wheezes or diminished lung sounds Cardio regular rate, regular rhythm, S1 normal heart sound, S2 normal heart sound and no murmurs Rate: Negative for bradycardia or tachycardic Rhythm: Negative for abnormal rhythm GI non-tender, non-distended and no masses Inspection: Negative for other Auscultation: normoactive bowel sounds Palpation: soft; Negative for tender, guarding or rebound tenderness present Back/Spine no CVA tenderness and normal to inspection General Back: Negative for CVA tenderness or tenderness Extremity Negative for normal to inspection Extremity Narrative: Trace lower extremity edema bilaterally. No cords. No tenderness. General Extremety ED: Yes edema; Negative for tenderness General Extremity: edema Neuro CN's II-XII intact bilaterally Sensorium / Orientation: alert, oriented to person and oriented to place Motor Exam: strength 5/5 throughout; Negative for general weakness or strength abnormal Psych mental status grossly normal Appearance: Negative for unkempt Attitude: No agitated Mood & Affect: Negative for depressed Thought Process: normal thought process Skin no wounds General Skin Exam: Negative for jaundice or pallor Lesions: no lesions Rashes: no rashes Trauma: Negative for abrasion or laceration MDM MDM MDM Narrative Medical decision making narrative: 84-year-old female with short of breath now resolved. Exam is benign differential would include pneumonia, effusion, CHF, dysrhythmia rule out MT versus viral syndrome. Repeat exam patient is doing well. No change. No symptoms. I went over test with her and family. Currently she is symptom-free and has been here the entire time. She will be discharged to home. Patient does have a heart murmur she can follow-up with her primary care physician with that they can decide if they might do further evaluation on it and/or an echocardiogram. History & Record Review Discussion w/independent historian: Patient and Family Additional record(s) reviewed:: Prior inpatient record, Prior outpatient record, Prior ED visit and Prior labs Lab Data Attestation: I reviewed the patient's lab results. Lab results narrative: CBC unremarkable. White count of 10. H&H 13 and 43. Platelets 304. Electrolytes show a gap of 6. Normal BUN and creatinine. Glucose 102. Troponin is normal at 11. Labs: Laboratory Results - last 24 hr 07/22/24 14:03 WBC 10.0 RBC 4.45 Hgb 13.8 Hct 43.0 MCV 96.6 MCH 31.0 MCHC 32.1 RDW Std Deviation 60.0 H RDW Coeff of Teresa 16.8 H Plt Count 304 MPV 7.9 Immature Gran % (Auto) 0.500 Neut % (Auto) 40.5 L Lymph % (Auto) 48.7 H [place] % (Auto) 7.3 Eos % (Auto) 2.5 Baso % (Auto) 0.5 Absolute Neuts (auto) 4.0 Absolute Lymphs (auto) 4.85 H Nucleated RBC % 0 Sodium 138 Potassium 4.1 Chloride 108 H Carbon Dioxide 24.0 Anion Gap 6 BUN 13 Creatinine 0.67 Est GFR (MDRD) Af Amer 108 Est GFR (MDRD) Non-Af 89 BUN/Creatinine Ratio 19.5 Glucose 102 Calcium 9.0 Troponin I High Sens 11 Radiography Chest X-Ray - ED: 1 View, Read by ED Physician, Read by Radiologist, Heart, Lungs, Mediastinum, Bony Structures, No Acute Disease and Chronic Changes Diagnostic Testing: Clinical Impression(s) from Imaging Studies Chest X-Ray 07/22/24 14:06 IMPRESSION: Vascular congestion and mild degree of CHF. Electronically Signed: Wolfgang Brooks MD at 14:26 EDT , Chest x-ray, portable, single view interpreted by myself and radiologist shows chronic changes. Cannot rule out mild vascular congestion but I do not see any obvious pneumonia. Clinically I do not think this is CHF. Rhythm Strip Rhythm Strip: Sinus Rhythm Rate: 82 Ectopy: None EKG Initial EKG: Attestation: I personally reviewed and interpreted this EKG as follows: Interpretation: Sinus Rhythm and No Acute Injury Pattern Comments: Normal sinus rhythm rate 82 no acute signs of MT nor ischemia no dysrhythmia. Discharge Plan Triage Chief Complaint: Shortness of Breath ED Provider: Paul Sanchez Dx/Rx/DC Orders Clinical Impression: Acute dyspnea, Parkinson's disease Instructions: ED Dyspnea Prescriptions: No Action levothyroxine 50 mcg tablet 50 mcg PO QDAY 90 Days Qty: 90 Patient Comments: ketotifen fumarate [Zaditor] 0.025 % (0.035 %) drops 1 drp OPHTHALMIC BID acetaminophen [Tylenol] 325 mg tablet 325 mg PO Q6H PRN (Reason: Pain Or Fever) PreserVision AREDS-2 250-90-40-1 mg capsule 1 tab PO BID mirtazapine 15 mg tablet 7.5 mg PO QHS Patient Comments: TAKE 1 TABLET BY MOUTH AT BEDTIME sennosides-docusate sodium [Senna-S] 8.6-50 mg tablet 1 tab-cap PO QHS Qty: 30 0RF carbidopa-levodopa [Sinemet] 10-100 mg tablet 1 tab PO BID galantamine 4 mg tablet 4 mg PO BID Rx Instructions: administer with AM and PM meals levothyroxine 75 mcg tablet 75 mcg PO DAILY memantine 10 mg tablet PO mirtazapine 7.5 mg tablet 7.5 mg PO QHS galantamine 16 mg capsule,ext rel. pellets 24 hr 16 mg PO DAILY megestrol 400 mg/10 mL (10 mL) suspension PO amlodipine 5 mg tablet See Rx Instructions .ROUTE .COMPLEX Qty: 90 3RF Dose Instruction: TAKE 1 TABLET DAILY Rx Instructions: TAKE 1 TABLET DAILY losartan 25 mg tablet 50 mg PO DAILY Qty: 180 3RF Primary Care Provider: Mahesh Bedolla Chi Referrals: Mahesh Bedolla Chi, MD [Primary Care Provider] - As soon as possible Activity Restrictions/Additional Instructions: No specific cause for your shortness of breath. Your chest x-ray and labs look good. Your EKG is normal. You do have a heart murmur my suspicion is you have had that for quite some time. No one may have told you about it. You can follow-up with Dr. Bedolla for that they can decide if they want to do further testing on it. Print Language: Bengali Disposition Disposition: Home, Self Care
--- NOTE | 2024-07-22 14:06 | RAD_ITS ---
STUDY: X-RAY CHEST REASON FOR EXAM: Female, 84 years old. Chest pain TECHNIQUE: Single AP portable view of the chest. COMPARISON: Comparison is made with prior study dated July 08, 2024. FINDINGS: EKG electrodes are seen. Vascular congestion and mild degree of CHF. There is no demonstrated pleural abnormality. Normal size heart. Normal mediastinum and nighat. Normal visualized pulmonary arteries. There is atherosclerotic tortuosity of the aortic arch and descending thoracic aorta. There are diffuse degenerative changes of the visualized thoracic spine. Normal visualized ribs, clavicles, and shoulders. There is no demonstrated abnormality of the visualized soft tissue structures of the upper abdomen. RAD/Chest 1 View (Portable) IMPRESSION: Vascular congestion and mild degree of CHF. Electronically Signed: Wolfgang Brooks MD at 14:26 EDT ,
[2024-07-22 14:11] LABS: Absolute Lymphocyte Count 4.85 X10^3/uL (0.83-4.51); Basophil# 0.05 X10^3/uL; Basophil% 0.5 % (0-1); Eosinophil# 0.25 X10^3/uL; Eosinophils% 2.5 % (0-5); Hemoglobin 13.8 g/dL (12.0-15.0); Lymphocyte # 4.85 X10^3/ul (0.83-4.51); Lymphocyte % 48.7 % (19-41); Mean Corp Hgb Conc 32.1 g/dL (32-36); Mean Corpuscular Volume 96.6 fL (81-99); Mean Platelet Vol. 7.9 fl (6.2-12.0); Monocyte# 0.73 X10^3/uL; Monocyte% 7.3 % (0-10); NRBC Flagged by Analyzer 0 % (0-5); Neutrophil # 4.03 X10^3/uL (2.7-7.7); Neutrophil % 40.5 % (47-70); Platelet Count 304 K/mm3 (150-450); RBC Distribution Width CV 16.8 % (11.6-14.6); Red Blood Count 4.45 M/mm3 (4.2-5.4)
[2024-07-22 14:29] LABS: Anion Gap 6 (5-15); BUN 13 mg/dL (7-18); BUN/Creat Ratio 19.5 RATIO (10-20); Chloride 108 mmol/L (98-107); Creatinine, Serum 0.67 mg/dL (0.55-1.02); EST Glomerular Filtration Rate 89 mL/min (>60); Est Glom Filt Rate - Afr Amer 108 mL/min (>60); Glucose 102 mg/dL (74-106); Potassium 4.1 mmol/L (3.5-5.1); Sodium Level 138 mmol/L (136-145); Troponin-I HS 11 pg/mL (3.0-54.0)
[2024-07-22 14:34] VITALS: BP 157/73; PULSE 92; RESP 21; TEMP 36.7; O2SAT 98
[2024-07-22 15:32] VITALS: BP 149/68; PULSE 89; RESP 16; O2SAT 98
[2024-07-22 15:41] VITALS: BMI 24.9
[2024-07-22 16:26] VITALS: BP 135/84; PULSE 80; RESP 16; TEMP 36.9; O2SAT 97
== END 2024-07-22 16:31 | disposition home or self-care (01) ==
PROVIDERS: Emergency Provider Emergency Medicine; PCP Family Medicine Geriatric Medicine; Referring Provider Emergency Medicine; Visit Provider Emergency Medicine
DX: R06.00 Dyspnea, unspecified (principal); G20.A1 Parkinson's disease without dyskinesia, without mention of fluctuations; I11.0 Hypertensive heart disease with heart failure; F02.80 Dementia in other diseases classified elsewhere, unspecified severity, without behavioral disturbance, psychotic disturbance, mood disturbance, and anxiety; I25.10 Atherosclerotic heart disease of native coronary artery without angina pectoris; H35.30 Unspecified macular degeneration; E78.00 Pure hypercholesterolemia, unspecified; R01.1 Cardiac murmur, unspecified; K21.9 Gastro-esophageal reflux disease without esophagitis
CPT/HCPCS: 71045; 80048; 84484; 85025; 93005; 99283

== ENCOUNTER → 2024-08-16 | Outpatient (CLI) | payer MEDICARE, OTHER, SELFPAY ==
[2024-08-16 16:24] LABS: Absolute Lymphocyte Count 2.93 X10^3/uL (0.83-4.51); Basophil# 0.05 X10^3/uL; Basophil% 0.6 % (0-1); Eosinophil# 0.18 X10^3/uL; Hematocrit 43.4 % (37-47); Hemoglobin 13.9 g/dL (12.0-15.0); Lymphocyte # 2.93 X10^3/ul (0.83-4.51); Lymphocyte % 32.7 % (19-41); Mean Corpuscular Hgb 30.6 pg (27.0-32.0); Mean Corpuscular Volume 95.6 fL (81-99); Mean Platelet Vol. 8.9 fl (6.2-12.0); Monocyte# 0.73 X10^3/uL; Monocyte% 8.1 % (0-10); NRBC Flagged by Analyzer 0 % (0-5); Neutrophil # 5.04 X10^3/uL (2.7-7.7); Neutrophil % 56.3 % (47-70); Platelet Count 376 K/mm3 (150-450); RBC Distribution Width CV 14.9 % (11.6-14.6); Red Blood Count 4.54 M/mm3 (4.2-5.4)
[2024-08-16 17:13] LABS: Vitamin D,25 Hydroxy 36.5 ng/mL
[2024-08-16 17:18] LABS: ALB/GLOB Ratio 0.8 RATIO (0.9-2.4); AST(SGOT) 24 U/L (15-37); Alanine Aminotransfer ALT/SGPT 21 U/L (13-56); Albumin, Serum 3.3 g/dL (3.2-5.0); Alkaline Phosphatase 183 U/L (45-117); Anion Gap 9 (5-15); BUN 11 mg/dL (7-18); Calcium,Total 9.4 mg/dL (8.5-10.1); Chloride 107 mmol/L (98-107); Creatinine, Serum 0.69 mg/dL (0.55-1.02); EST Glomerular Filtration Rate 86 mL/min (>60); Est Glom Filt Rate - Afr Amer 104 mL/min (>60); Globulin 4.1 g/dL (2.2-4.2); Glucose 102 mg/dL (74-106); Potassium 3.9 mmol/L (3.5-5.1); Protein, Total 7.4 g/dL (6.4-8.2); Sodium Level 138 mmol/L (136-145)
== END | disposition home or self-care (01) ==
LOC: LAB 15:08
PROVIDERS: PCP Family Medicine Geriatric Medicine; Referring Provider Family Medicine Geriatric Medicine; Visit Provider Family Medicine Geriatric Medicine
DX: I10 Essential (primary) hypertension (principal); E55.9 Vitamin D deficiency, unspecified
CPT/HCPCS: 36415; 80053; 82306; 84443; 85025

== ENCOUNTER → 2024-10-13 | Outpatient (CLI) | payer MEDICARE, OTHER, SELFPAY ==
--- NOTE | 2024-10-13 16:46 | CT_ITS ---
STUDY: CT BRAIN WITHOUT CONTRAST REASON FOR EXAM: Female, 84 years old. CLOSED HEAD INJURY RADIATION DOSAGE (If Supplied By Facility): CTDIvol = ( 44.99 ) mGy, DLP = ( 745.49 ) mGycm TECHNIQUE: Transaxial CT imaging of the brain was performed without administration of intravenous contrast material. Individualized dose optimization techniques were used for this CT. The protocol utilizes one or more of the following dose reduction techniques: automated exposure control, adjustment of mA and/or kV according to patient size,and/or use of iterative reconstruction technique. COMPARISON: MRI brain February 16, 2024. FINDINGS: Normal soft tissue structures. Normal calvarium. There is mild cerebral atrophy with widening of the extra-axial spaces and ventricular dilatation. There are areas of decreased attenuation within the white matter tracts of the supratentorial brain, consistent with microvascular disease changes. Normal basal ganglia and thalami. Normal brainstem. Normal cerebellum. There is no intracranial hemorrhage. There are no findings of an acute ischemic infarction. Air-fluid level left sphenoid sinus. CT/Brain/Head without Contrast IMPRESSION: Possible sphenoid sinusitis. Otherwise no acute intracranial disease. Electronically Signed: Craig Cooney MD at 17:54 EST ,
[2024-10-13 17:05] LABS: Absolute Lymphocyte Count 4.41 X10^3/uL (0.83-4.51); Absolute Neutrophil Count 2.7 X10^3/uL (2.0-7.7); Basophil# 0.03 X10^3/uL; Basophil% 0.4 % (0-1); Eosinophil# 0.22 X10^3/uL; Eosinophils% 2.8 % (0-5); Hematocrit 44.3 % (37-47); Hemoglobin 14.4 g/dL (12.0-15.0); Lymphocyte # 4.41 X10^3/ul (0.83-4.51); Lymphocyte % 55.2 % (19-41); Mean Corp Hgb Conc 32.5 g/dL (32-36); Mean Corpuscular Hgb 30.8 pg (27.0-32.0); Mean Corpuscular Volume 94.9 fL (81-99); Mean Platelet Vol. 8.8 fl (6.2-12.0); Monocyte# 0.65 X10^3/uL; Monocyte% 8.1 % (0-10); NRBC Flagged by Analyzer 0 % (0-5); Neutrophil # 2.66 X10^3/uL (2.7-7.7); Neutrophil % 33.2 % (47-70); Platelet Count 338 K/mm3 (150-450); RBC Distribution Width CV 12.8 % (11.6-14.6); RBC Distribution Width SD 44.6 fl (35.1-43.9); Red Blood Count 4.67 M/mm3 (4.2-5.4)
[2024-10-13 17:38] LABS: ALB/GLOB Ratio 0.9 RATIO (0.9-2.4); AST(SGOT) 33 U/L (15-37); Alanine Aminotransfer ALT/SGPT 41 U/L (13-56); Albumin, Serum 3.6 g/dL (3.2-5.0); Alkaline Phosphatase 213 U/L (45-117); Anion Gap 5 (5-15); BUN 11 mg/dL (7-18); BUN/Creat Ratio 17.8 RATIO (10-20); Calcium,Total 8.9 mg/dL (8.5-10.1); Chloride 104 mmol/L (98-107); Creatinine, Serum 0.62 mg/dL (0.55-1.02); EST Glomerular Filtration Rate 97 mL/min (>60); Est Glom Filt Rate - Afr Amer 118 mL/min (>60); Globulin 3.9 g/dL (2.2-4.2); Glucose 104 mg/dL (74-106); Protein, Total 7.5 g/dL (6.4-8.2); Sodium Level 137 mmol/L (136-145)
== END | disposition home or self-care (01) ==
PROVIDERS: PCP Family Medicine Geriatric Medicine; Referring Provider Family Medicine Geriatric Medicine; Visit Provider Family Medicine Geriatric Medicine
DX: G93.40 Encephalopathy, unspecified (principal); I10 Essential (primary) hypertension; S09.90XA Unspecified injury of head, initial encounter; N39.0 Urinary tract infection, site not specified
CPT/HCPCS: 36415; 70450; 80053; 84443; 85025; 87086; 87088

== ENCOUNTER → 2024-11-16 | Outpatient (CLI) | payer MEDICARE, OTHER, SELFPAY ==
[2024-11-16 15:10] LABS: Absolute Neutrophil Count 2.7 X10^3/uL (2.0-7.7); Basophil# 0.03 X10^3/uL; Basophil% 0.4 % (0-1); Eosinophil# 0.13 X10^3/uL; Eosinophils% 1.7 % (0-5); Hematocrit 41.9 % (37-47); Hemoglobin 13.5 g/dL (12.0-15.0); Lymphocyte % 54.3 % (19-41); Mean Corp Hgb Conc 32.2 g/dL (32-36); Mean Corpuscular Hgb 30.3 pg (27.0-32.0); Mean Corpuscular Volume 93.9 fL (81-99); Monocyte% 7.9 % (0-10); NRBC Flagged by Analyzer 0 % (0-5); Neutrophil # 2.68 X10^3/uL (2.7-7.7); Neutrophil % 35.6 % (47-70); Platelet Count 319 K/mm3 (150-450); RBC Distribution Width CV 13.4 % (11.6-14.6); RBC Distribution Width SD 46.5 fl (35.1-43.9); Red Blood Count 4.46 M/mm3 (4.2-5.4); White Blood Count 7.6 K/mm3 (4.4-11.0)
[2024-11-16 15:55] LABS: ALB/GLOB Ratio 0.9 RATIO (0.9-2.4); AST(SGOT) 26 U/L (15-37); Alanine Aminotransfer ALT/SGPT 20 U/L (13-56); Albumin, Serum 3.6 g/dL (3.2-5.0); Alkaline Phosphatase 216 U/L (45-117); Anion Gap 4 (5-15); BUN 12 mg/dL (7-18); BUN/Creat Ratio 18.3 RATIO (10-20); Calcium,Total 9.1 mg/dL (8.5-10.1); Chloride 103 mmol/L (98-107); Creatinine, Serum 0.66 mg/dL (0.55-1.02); EST Glomerular Filtration Rate 91 mL/min (>60); Est Glom Filt Rate - Afr Amer 110 mL/min (>60); Globulin 3.8 g/dL (2.2-4.2); Glucose 135 mg/dL (74-106); Potassium 4.1 mmol/L (3.5-5.1); Protein, Total 7.4 g/dL (6.4-8.2); Sodium Level 135 mmol/L (136-145)
[2024-11-18 00:52] LABS: Vitamin D,25 Hydroxy 28.9 ng/mL
== END | disposition home or self-care (01) ==
LOC: POLAB3 14:28
PROVIDERS: PCP Family Medicine Geriatric Medicine; Visit Provider Family Medicine Geriatric Medicine
DX: I10 Essential (primary) hypertension (principal); E55.9 Vitamin D deficiency, unspecified
CPT/HCPCS: 36415; 80053; 82306; 84443; 85025

== ENCOUNTER → 2025-02-14 | Outpatient (CLI) | payer MEDICARE, OTHER, SELFPAY ==
[2025-02-14 14:43] LABS: Absolute Lymphocyte Count 3.65 X10^3/uL (0.83-4.51); Absolute Neutrophil Count 2.5 X10^3/uL (2.0-7.7); Basophil# 0.02 X10^3/uL; Basophil% 0.3 % (0-1); Eosinophils% 1.5 % (0-5); Hematocrit 40.6 % (37-47); Hemoglobin 12.9 g/dL (12.0-15.0); Lymphocyte # 3.65 X10^3/ul (0.83-4.51); Lymphocyte % 54.3 % (19-41); Mean Corp Hgb Conc 31.8 g/dL (32-36); Mean Corpuscular Hgb 29.5 pg (27.0-32.0); Mean Corpuscular Volume 92.9 fL (81-99); Mean Platelet Vol. 8.7 fl (6.2-12.0); Monocyte# 0.46 X10^3/uL; Monocyte% 6.8 % (0-10); NRBC Flagged by Analyzer 0 % (0-5); Neutrophil # 2.48 X10^3/uL (2.7-7.7); Platelet Count 285 K/mm3 (150-450); RBC Distribution Width SD 51.8 fl (35.1-43.9); Red Blood Count 4.37 M/mm3 (4.2-5.4); White Blood Count 6.7 K/mm3 (4.4-11.0)
[2025-02-14 15:53] LABS: ALB/GLOB Ratio 1.4 RATIO (0.9-2.4); AST(SGOT) 31 U/L (<=31); Alanine Aminotransfer ALT/SGPT 14 U/L (<=34); Albumin, Serum 4.2 g/dL (3.4-4.8); Alkaline Phosphatase 235 U/L (35-104); Anion Gap 10 (5-15); BUN 10 mg/dL (4-19); BUN/Creat Ratio 15.1 RATIO (10-20); Calcium,Total 9.3 mg/dL (7.6-11.0); Carbon Dioxide 26.9 mmol/L (21.0-32.0); Chloride 101 mmol/L (98-108); Creatinine, Serum 0.67 mg/dL (0.70-1.20); EST Glomerular Filtration Rate 85 (>60); Glucose 123 mg/dL (70-99); Potassium 4.3 mmol/L (3.3-5.1); Protein, Total 7.1 g/dL (5.9-8.4); Sodium Level 138 mmol/L (133-145); Total Bilirubin 0.25 mg/dL (0.00-1.30)
== END | disposition home or self-care (01) ==
LOC: POLAB3 14:24
PROVIDERS: PCP Family Medicine Geriatric Medicine; Visit Provider Family Medicine Geriatric Medicine
DX: I10 Essential (primary) hypertension (principal); E55.9 Vitamin D deficiency, unspecified
CPT/HCPCS: 36415; 80053; 82306; 84443; 85025

== ENCOUNTER → 2025-08-16 | Outpatient (CLI) | payer MEDICARE, OTHER, SELFPAY ==
[2025-08-16 14:20] LABS: Hematocrit 42.2 % (37-47); Hemoglobin 13.3 g/dL (12.0-15.0); Immature Granulocytes Count 0.010 X10^3/uL (0.0-0.0); Mean Corp Hgb Conc 31.5 g/dL (32-36); Mean Corpuscular Volume 95.3 fL (81-99); Mean Platelet Vol. 8.8 fl (6.2-12.0); NRBC Flagged by Analyzer 0 % (0-5); Platelet Count 266 K/mm3 (150-450); RBC Distribution Width CV 14.1 % (11.6-14.6); RBC Distribution Width SD 50.4 fl (35.1-43.9); Red Blood Count 4.43 M/mm3 (4.2-5.4); White Blood Count 8.1 K/mm3 (4.4-11.0)
[2025-08-16 15:16] LABS: AST(SGOT) 26 U/L (<=31); Alanine Aminotransfer ALT/SGPT 9 U/L (<=34); Albumin, Serum 4.1 g/dL (3.4-4.8); Alkaline Phosphatase 168 U/L (35-104); Anion Gap 10 (5-15); BUN 14 mg/dL (4-19); BUN/Creat Ratio 18.6 RATIO (10-20); Calcium,Total 9.2 mg/dL (7.6-11.0); Carbon Dioxide 26.0 mmol/L (21.0-32.0); Chloride 105 mmol/L (98-108); Globulin 3.3 g/dL (2.2-4.2); Glucose 114 mg/dL (70-99); Potassium 4.6 mmol/L (3.3-5.1); Vitamin D,25 Hydroxy 24.5 ng/mL (30-100)
[2025-08-16 22:06] LABS: Xtra Tube Kwok EXTRA TUBE
== END | disposition home or self-care (01) ==
LOC: POLAB3 14:05
PROVIDERS: PCP Family Medicine Geriatric Medicine; Visit Provider Family Medicine Geriatric Medicine
DX: I10 Essential (primary) hypertension (principal); E55.9 Vitamin D deficiency, unspecified
CPT/HCPCS: 36415; 80053; 82306; 84443; 85025